=== PATIENT | female | born 1945 | race Caucasian/White ===

== ENCOUNTER 2018-01-18 11:37 | Outpatient (CLI) | payer MEDICARE ==
[~2018-01-18 11:37] MED LIST: Lidocaine 2% Jelly 30 GM TUBE ONE; Sodium Chloride 0.9% 15 ML NEB ONE
--- NOTE | 2018-01-18 23:13 | HP ---
DATE OF SERVICE: 01/18/2018 HISTORY OF PRESENT ILLNESS: Ms. Pratima Casey is a very pleasant 69-year-old who presents to the [facility] for evaluation of an ulceration of the right medial lower leg. The patient states that the u lceration has been debrided by Dr. Marko Banda previously. She states that when debridement failed to result in healing of the ulceration, she was referred to the Wound Center for further evaluation and treatment. The patient also reports drainage associated with the ulceration. The patient has no other complaints today. She denies any fever or chills. The patient was previously seen in the [facility] for a left anterior lower leg wound resulting from a fall against a statue at [facility] while trying to get a picture. Ms. Casey has no other complaints today. She denies any fever or chills. PAST MEDICAL HISTORY: 1. Chronic reflux esophagitis. 2. Irritable bowel syndrome. 3. Osteoarthritis. 4. Hypertension. 5. Rheumatoid arthritis. 6. Gastroesophageal reflux disease. 7. CVA with right hemiparesis. 8. History of rhabdomyolysis. PAST SURGICAL HISTORY: 1. Hysterectomy. 2. Cholecystectomy. 3. Wrist surgery subsequent to trauma in the 1970s. 4. Surgery for chronic sinusitis. 5. Blepharoplasty. MEDICATIONS: 1. Potassium. 2. Lorazepam. 3. Coreg. 4. Lyrica. 5. Simvastatin. 6. Clopidogrel. 7. Vitamin D. 8. Relafen. 9. Baclofen. ALLERGIES: PENICILLIN, ZITHROMAX, LEVAQUIN, CORTISONE, AVELOX, TRAMADOL. SOCIAL HISTORY: Social history is negative for current or previous tobacco or ETOH use. FAMILY HISTORY: Noncontributory. PHYSICAL EXAMINATION: VITAL SIGNS: Temperature 98.0, pulse 55, respirations 19, blood pressure 185/79. GENERAL: A 69-year-old female sitting on table in examination room, in no acute distress. HEENT: Normocephalic, atraumatic. NECK: No nuchal rigidity. CHEST: Clear to auscultation. CARDIOVASCULAR: Regular rate and rhythm. ABDOMEN: Soft. EXTREMITIES: An ulceration of the right medial lower leg is present, which measures approximately 0. 3 x 0.6 cm. Necrotic and nonviable tissue present within the wound margins was debrided with an exci sional full-thickness debridement with the use of scissors. No purulent drainage is associated with the wound. No cellulitis of the right lower leg is appreciated. No maceration of the skin of the pe riwound is noted. A posterior tibial pulse is palpable on the right. Edema of the right foot and lo wer leg is also present on exam today. Varicosities are also present over the right lower extremity. ASSESSMENT AND PLAN: 1. Varicose veins with ulcer. Promogran, Silverlon, Webril, and the 3M Coban 2-layer compression sy stem will be applied to the ulceration today. No antibiotics will be prescribed today based upon the appearance of the wound. The patient is to return to the Wound Center in 1 week for a dressing francisco ge of Promogran, Silverlon, Webril, and the 3M Coban 2 layer compression system. I will see Ms. Casey again in two weeks. 2. Chronic reflux esophagitis. 3. Irritable bowel syndrome. 4. Osteoarthritis. 5. Hypertension. 6. Rheumatoid arthritis. 7. Gastroesophageal reflux disease. 8. Cerebrovascular accident with right hemiparesis. 9. History of rhabdomyolysis.
== END 2018-01-18 11:38 | disposition home or self-care (01) ==
LOC: WCC 11:37
PROVIDERS: ATTEND Family Medicine
DX: I83.018 Varicose veins of right lower extremity with ulcer other part of lower leg (principal); L97.919 Non-pressure chronic ulcer of unspecified part of right lower leg with unspecified severity; K21.0 Gastro-esophageal reflux disease with esophagitis; K58.9 Irritable bowel syndrome, unspecified; M19.90 Unspecified osteoarthritis, unspecified site; M06.9 Rheumatoid arthritis, unspecified; I69.351 Hemiplegia and hemiparesis following cerebral infarction affecting right dominant side
CPT/HCPCS: 11042; 97139; G0463; 99203; A4218

== ENCOUNTER 2018-01-19 09:23 | Outpatient (CLI) | payer MEDICARE ==
[2018-01-23] MEDS ORDERED: Sodium Chloride 0.9% 15 ML NEB ONE (16:48)
== END 2018-01-19 09:24 | disposition home or self-care (01) ==
LOC: WCC 09:23
PROVIDERS: ATTEND Family Medicine
DX: I83.018 Varicose veins of right lower extremity with ulcer other part of lower leg (principal); Z88.0 Allergy status to penicillin; Z88.5 Allergy status to narcotic agent; Z88.8 Allergy status to other drugs, medicaments and biological substances
CPT/HCPCS: 29581; A4218

== ENCOUNTER 2018-02-01 13:37 | Outpatient (CLI) | payer MEDICARE ==
--- NOTE | 2018-02-01 14:58 | PRG ---
DATE OF SERVICE: 02/01/2018 SUBJECTIVE: Ms. Pratima Casey is a very pleasant 72-year-old who presents to the Wound Center for evalu ation of an ulceration of the right medial lower leg. The patient stated that the ulceration has bee n debrided by Dr. Marko Banda previously. She stated that when debridement failed to result in the healing of the ulceration. She was referred to the Wound Center for further evaluation and treatmen t. The patient also reported drainage associated with the ulceration at the time of her visit on 05/2018. The patient has no complaints today. She denies any fever or chills. The patient was prev iously seen in the Wound Center for a left anterior lower leg wound resulting from a fall against a s tatue at [facility] while trying to get a picture. OBJECTIVE: VITAL SIGNS: Temperature 98.0, pulse 54, respirations 18, blood pressure 186/77. EXTREMITIES: An ulceration of the right medial lower leg is present which measures approximately 1.4 x 0.9 cm. The dimensions of the wound at the time of the patient's visit on 01/18/2018, were approx imately 0.3 x 0.6 cm. The wound is granulating. Necrotic and nonviable tissue present within the wo und margins was debrided with an excisional full-thickness debridement with the use of scissors. No purulent drainage is associated with the granulating wound. No cellulitis of the right lower leg is appreciated. No maceration of the skin of the periwound is noted. A dorsalis pedis pulse is palpabl e on the right. Edema of the right foot and lower leg is again present on exam today. Varicosities are also present over the right lower extremity. ASSESSMENT AND PLAN: 1. Varicose veins with ulcer. Promogran, Silvercel, Kerlix, and an Earl bandage will be applied to t he ulceration today. The preceding dressing changes are to be performed on a daily basis after clean sing and irrigation with the assistance of the patient's . I will see Ms. Casey again in [place]. Arrangements will also be made for the home delivery of dressing supplies. 2. Chronic reflux esophagitis. 3. Irritable bowel syndrome. 4. Osteoarthritis. 5. Hypertension. 6. Rheumatoid arthritis. 7. Gastroesophageal reflux disease. 8. Cerebrovascular accident with right hemiparesis. 9. History of rhabdomyolysis.
[2018-02-03] MEDS ORDERED: Lidocaine 2% Jelly 5 ML TUBE ONE (12:27)
[2018-02-03] MEDS ORDERED: Sodium Chloride 0.9% 15 ML NEB ONE (12:27)
== END 2018-02-01 13:38 | disposition home or self-care (01) ==
LOC: WCC 13:37
PROVIDERS: ATTEND Family Medicine
DX: I83.018 Varicose veins of right lower extremity with ulcer other part of lower leg (principal); K21.0 Gastro-esophageal reflux disease with esophagitis; M19.90 Unspecified osteoarthritis, unspecified site; I10 Essential (primary) hypertension; K58.9 Irritable bowel syndrome, unspecified; M06.9 Rheumatoid arthritis, unspecified; I69.959 Hemiplegia and hemiparesis following unspecified cerebrovascular disease affecting unspecified side; Z87.39 Personal history of other diseases of the musculoskeletal system and connective tissue
CPT/HCPCS: 11042

== ENCOUNTER 2018-02-09 09:38 | Outpatient (CLI) | payer MEDICARE ==
--- NOTE | 2018-02-09 11:59 | PRG ---
DATE OF SERVICE: 02/09/2018 HISTORY: Ms. Pratima Casey is a very pleasant 72-year-old who presents to the Wound Center for evaluation of an ulceration of the right medial lower leg. The patient stated that the ulceration had been debrided by Dr. Marko Banda previously. She stated that when debridement failed to result in the healing of the ulceration she was referred to the Wound Center for further evaluation and treatment. The patient also reported drainage associated with the ulceration at the time of her visit on 01/18/2018. The patient has no complaints today. She denies any fever or chills. The patient was previously seen in the Wound Center for a left anterior lower leg wound resulting from a fall against a statue at [facility] while trying to get a picture. PHYSICAL EXAMINATION: VITAL SIGNS: Temperature 97.6, pulse 56, respirations 18, blood pressure 144/ 64. EXTREMITIES: An ulceration of the right medial lower leg is present which measures approximately 1.4 x 0.7 cm. The dimensions of the wound at the time of the patient's visit on 02/01/2018 were approximately 1.4 x 0.9 cm. The wound is granulating. Necrotic and nonviable tissue present within the wound margins was debrided with an excisional full-thickness debridement with the use of scissors and a curet. No purulent drainage is associated with the wound. No cellulitis of the right lower leg is appreciated. No maceration of the skin of the periwound is noted. Edema of the right foot and lower leg is again present on exam today. Varicosities are also present over the right lower extremity. ASSESSMENT AND PLAN: 1. Varicose veins with ulcer. Promogran, Silvercel, Kerlix, and an Earl bandage will be applied to the ulceration today. The preceding dressing changes are to be performed on a daily basis after cleansing and irrigation with the assistance of the patient's . Arrangements were previously made for the home delivery of dressing supplies. Ms. Casey will return to clinic if the preceding dressing changes fail to result in the healing of her ulceration. The patient has declined treatment with compression for her venous ulceration. 2. Chronic reflux esophagitis. 3. Irritable bowel syndrome. 4. Osteoarthritis. 5. Hypertension. 6. Rheumatoid arthritis. 7. Gastroesophageal reflux disease. 8. Cerebrovascular accident with right hemiparesis. 9. History of rhabdomyolysis. MTDD
[2018-02-09] MEDS ORDERED: Sodium Chloride 0.9% 15 ML NEB ONE (17:09)
[2018-02-09] MEDS ORDERED: Lidocaine 2% Jelly 5 ML TUBE ONE (17:09)
== END 2018-02-09 09:39 | disposition home or self-care (01) ==
LOC: WCC 09:38
PROVIDERS: ATTEND Family Medicine
DX: I83.018 Varicose veins of right lower extremity with ulcer other part of lower leg (principal); K58.9 Irritable bowel syndrome, unspecified; I10 Essential (primary) hypertension; M19.90 Unspecified osteoarthritis, unspecified site; M06.9 Rheumatoid arthritis, unspecified; K21.0 Gastro-esophageal reflux disease with esophagitis; I69.951 Hemiplegia and hemiparesis following unspecified cerebrovascular disease affecting right dominant side; Z87.39 Personal history of other diseases of the musculoskeletal system and connective tissue
CPT/HCPCS: 11042; A4218

== ENCOUNTER 2018-07-25 16:00 | Outpatient (CLI) | payer MEDICARE | END 2018-07-25 16:01 | disposition home or self-care (01) | LOC: RAD 16:00 → BICRAD 16:01 | PROVIDERS: ATTEND Specialist | DX: M79.642 Pain in left hand (principal); M25.532 Pain in left wrist ==

== ENCOUNTER 2018-08-22 14:32 | Outpatient (CLI) | payer MEDICARE ==
--- NOTE | 2018-08-22 17:19 | CT ---
CT OF THE LEFT HAND AND WRIST WITHOUT IV CONTRAST 08/22/18 HISTORY: Closed nondisplaced fracture mid one third of the scaphoid. COMPARISON: Prior three views of the left wrist dated 07/25/18. FINDINGS: No acute fracture or subluxation is evident involving the wrist carpus. Carpal alignment appears with in normal limits. DRUJ appears within normal limits. There is a small obliquely oriented avulsion fra cture involving the radial base of the long finger proximal phalanx. There is scattered osteoarthrosi s involving the left hand. No additional fracture is grossly evident. IMPRESSION: Obliquely oriented avulsion fracture involving the radial base of the long finger proximal phalanx. T here is scattered osteoarthrosis of the left hand. No definite scaphoid fracture is demonstrated. POS: TPC
== END 2018-08-22 14:33 | disposition home or self-care (01) ==
LOC: BICCT 14:32
PROVIDERS: ATTEND Orthopaedic Surgery Hand Surgery
DX: S62.025A Nondisplaced fracture of middle third of navicular [scaphoid] bone of left wrist, initial encounter for closed fracture (principal); M19.042 Primary osteoarthritis, left hand

== ENCOUNTER 2019-02-26 20:01 | Emergency (ER) | payer MEDICARE ==
[~2019-02-26 20:01] MED LIST changes: +ISOVUE-370 76%-LOCM 1 ML ONE; -Lidocaine 2% Jelly 30 GM TUBE ONE; -Sodium Chloride 0.9% 15 ML NEB ONE
[2019-02-26 21:33] LABS: #Eosinphils 0.2 thou/uL (0.0-0.7); #Lymphocytes 2.3 thou/uL (1.20-3.40); #Monocytes 0.6 thou/uL (0.11-0.59); #Neutrophils 3.4 thou/uL (1.40-6.50); %Basophils 0.3 % (0.0-1.0); %Eosinophils 2.4 % (0.0-10.0); %Lymphocytes 35.5 % (21.0-51.0); %Monocytes 9.8 % (0.0-10.0); %Neutrophils 52.1 % (42.0-75.0); Hemoglobin 12.7 g/dL (12.0-16.0); Mean Corpuscular HGB CONC 32.8 g/dL (32.0-36.0); Mean Corpuscular Hemoglobin 30.3 pg (27.0-31.0); Mean Corpuscular Volume 92.3 fL (78.0-98.0); Mean Platelet Volume 8.4 fL (7.4-10.4); Platelet Count 195 thou/uL (130-400); RBC Distribution Width 13.9 % (11.5-14.5); White Blood Cell (WBC) Count 6.5 thou/uL (4.8-10.8)
[2019-02-26 21:39] LABS: PTT 24.7 SEC (22.9-36.1); Prothrombin Time 12.8 SEC (12.0-14.7)
[2019-02-26 21:54] LABS: ALT (SGPT) 11 U/L (8-55); AST (SGOT) 12 U/L (5-34); Albumin 3.9 g/dL (3.4-4.8); Alkaline Phosphatase 42 U/L (40-150); Anion Gap 13 mmol/L (10-20); BUN (Urea Nitrogen) 23 mg/dL (9.8-20.1); Bilirubin, Total 0.2 mg/dL (0.2-1.2); Calc. Creatinine Clearance 0 mL/min (70-130); Calcium 9.4 mg/dL (7.8-10.44); Carbon Dioxide 26 mmol/L (23-31); Chloride 109 mmol/L (98-107); Estimated GFR-MDRD 35; Globulin 2.4 g/dL (2.4-3.5); Glucose 94 mg/dL (83-110); Potassium 4.6 mmol/L (3.5-5.1); Protein, Total 6.3 g/dL (6.0-8.3); Sodium 143 mmol/L (136-145)
--- NOTE | 2019-02-26 22:36 | CT ---
Exam: Brain CT without IV contrast: HISTORY: Unable to move hand, hand cramping headache left eye pain COMPARISON: 09/07/2016 FINDINGS: Again noted is a very large area of encephalomalacia with associated brain volume loss involving the left temporal and parietal and occipital lobes. No focal mass or midline shift. No intra or extra-axial hemorrhage. IMPRESSION: Large stable area of encephalomalacia on the left side with associated brain volume loss. No mass or hemorrhage or other acute process.
--- NOTE | 2019-02-26 22:55 | CT ---
EXAM: CT angiogram of the head including 3-D rendering: HISTORY: Left hand cramping, old left-sided stroke/encephalomalacia COMPARISON: None FINDINGS: Opacification of the intracranial arteries is borderline. Extensive old left-sided encephalomalacia, stable. Visualized vertebral and basilar arteries: Unremarkable. Right and left intracranial internal carotid arteries: Unremarkable. Right and left Anterior and posterior cerebral arteries: Unremarkable. Right and left middle cerebral arteries: Unremarkable. No evidence for an M1 segment occlusion. No evidence for intracranial aneurysm. IMPRESSION: Large area encephalomalacia in the left temporal, parietal, and occipital region. No evidence for sig nificant major branch occlusion. EXAM: CT angiogram of the neck including 3-D rendering: HISTORY: Can't use hand, hand cramping COMPARISON: None FINDINGS: There is adequate opacification of the extracranial arterial tree. The origins of the right and left carotid and vertebral arteries demonstrate no significant stenosis. Right common, internal, and external carotid arteries:No evidence for significant stenosis or occlusi ve disease. Left common, internal, and external carotid arteries:No significant stenosis or occlusive disease. Right and left vertebral arteries and basilar artery:No significant stenosis or occlusion. Soft tissue neck demonstrates no evidence for significant adenopathy, mass, or abnormal fluid collect ion. IMPRESSION: No significant carotid, vertebral, or basilar artery stenosis or occlusive disease or other significa nt acute process.
== END 2019-02-26 23:43 | disposition home or self-care (01) ==
LOC: ERS 20:01
DX: M62.838 Other muscle spasm (principal); M19.90 Unspecified osteoarthritis, unspecified site; I10 Essential (primary) hypertension; Z86.73 Personal history of transient ischemic attack (TIA), and cerebral infarction without residual deficits; Z79.899 Other long term (current) drug therapy
CPT/HCPCS: 36415; 70450; 70496; 70498; 80053; 84484; 85025; 85610; 85730; 93005; Q9966

== ENCOUNTER 2019-03-30 18:42 | Inpatient (IN) | payer MEDICARE ==
[2019-03-30] MEDS ORDERED: Ondansetron PF 4 MG/2 ML Vial ONE (19:06)
[2019-03-30 19:27] LABS: Hemoglobin 12.3 g/dL (12.0-16.0); Mean Corpuscular HGB CONC 33.4 g/dL (32.0-36.0); Mean Corpuscular Hemoglobin 30.3 pg (27.0-31.0); Mean Corpuscular Volume 90.8 fL (78.0-98.0); Mean Platelet Volume 8.2 fL (7.4-10.4); Platelet Count 179 thou/uL (130-400); RBC Distribution Width 13.1 % (11.5-14.5); Red Blood Cell (RBC) Count 4.05 mill/uL (4.20-5.40); White Blood Cell (WBC) Count 16.6 thou/uL (4.8-10.8)
--- NOTE | 2019-03-30 19:37 | CT ---
CT HEAD WITHOUT IV CONTRAST COMPARISON: 02/26/2019 HISTORY: Nausea and vomiting with spasms in right leg. Change in speech. TECHNIQUE: Axial CT imaging at 5 mm intervals from vertex through skull base without contrast FINDINGS: There is a large stable area of encephalomalacia involving the left temporal and occipital lobes with associated ex vacuo dilatation of the temporal and occipital horns as well as a portion of the body of the left lateral ventricle. Curvilinear low density area is seen in the left basal ganglia st able from prior study reflective of remote lacunar infarction. Again noted is evidence of mild chronic small vessel ischemic changes. There is no evidence of an acute infarction, hemorrhage, mass effect, or midline shift. Mild cerebral volume loss is present. Visualized paranasal sinuses are clear. Osseous structures appear intact. IMPRESSION: 1. No acute intracranial abnormality demonstrated. 2. Stable large area of encephalomalacia involving the left cerebral hemisphere.
[2019-03-30 19:43] LABS: ALT (SGPT) 10 U/L (8-55); AST (SGOT) 15 U/L (5-34); Albumin 3.4 g/dL (3.4-4.8); Alkaline Phosphatase 29 U/L (40-150); Anion Gap 12 mmol/L (10-20); BUN (Urea Nitrogen) 21 mg/dL (9.8-20.1); Bilirubin, Total 0.7 mg/dL (0.2-1.2); Calc. Creatinine Clearance 0 mL/min (70-130); Calcium 8.5 mg/dL (7.8-10.44); Carbon Dioxide 22 mmol/L (23-31); Chloride 99 mmol/L (98-107); Estimated GFR-MDRD 38; Globulin 2.2 g/dL (2.4-3.5); Glucose 123 mg/dL (83-110); Magnesium 1.9 mg/dL (1.6-2.6); Potassium 3.8 mmol/L (3.5-5.1); Protein, Total 5.6 g/dL (6.0-8.3); Sodium 129 mmol/L (136-145)
[2019-03-30 19:48] LABS: Band 15 % (5-11); Lymphocytes 2 % (21-51); MDiff Complete? YES; Monocytes 7 % (0-10); Neutrophil 74 % (42-75); Platelet Morphology Comment Appears Adequate; Reactive Lymphocytes 2 % (0-10)
[2019-03-30 20:04] LABS: CKMB 1.7 ng/mL (0-6.6)
[2019-03-30] MEDS ORDERED: cefTRIAXone\\ROCEPHIN 1 GM VIAL ONE (21:21)
[2019-03-30 21:22] LABS: Bilirubin Negative (Negative); Blood, Urine Negative (Negative); Clarity CLEAR (Clear); Glucose, Urine (Dipstick) Negative (Negative); Leukocyte Small (Negative); Nitrite Negative (Negative); Protein, Urine (Dipstick) Negative (Neg-Trace); Specific Gravity, Urine 1.016 (1.002-1.036); Urobilinogen 0.2 mg/dL (0.2-1.0); pH, Urine 5.5 (5.0-9.0)
[2019-03-30 21:24] LABS: Bacteria/HPF None Seen HPF (None Seen); Pathc Cast-AUWi Flag 2.31 (0-2.49)
[2019-03-30 21:37] LABS: RBC/HPF 0-3 HPF (0-3); Renal Epithelial None Seen HPF (0-3); Transitional Epithelial 0-3 HPF (0-3)
[2019-03-30 21:38] LABS: Hyaline Casts/LPF 0-3 HYALINE CAST LPF (0-3 Hyaline)
[2019-03-30] MEDS ORDERED: Sodium Chloride 0.9% 1,000 ML IV SCH (22:49)
[2019-03-30 23:10] LABS: Critical Call Chem Troponin I RESULT DECREASING; Troponin I 0.417 ng/mL (< 0.028)
[2019-03-31 01:54] LABS: Critical Call Chem Troponin I RESULT DECREASING; Troponin I 0.377 ng/mL (< 0.028)
[2019-03-31] MEDS ORDERED: Zolpidem Tartrate 5 MG TAB PO PRN (09:15)
[2019-03-31] MEDS ORDERED: Ondansetron ODT 8 MG TAB PO PRN (09:21)
[2019-03-31] MEDS: Lorazepam 0.5 MG TAB PO SCH ×2 (09:47→20:10)
[2019-03-31 10:28] LABS: Hemoglobin A1c 5.2 % (4.0-6.0)
--- NOTE | 2019-03-31 10:34 | EKG ---
Test Reason : ER INDICATION Blood Pressure : / mmHG Vent. Rate : 063 BPM Atrial Rate : 063 BPM P-R Int : 152 ms QRS Dur : 086 ms QT Int : 412 ms P-R-T Axes : 032 034 037 degrees QTc Int : 421 ms Normal sinus rhythm Normal ECG Confirmed by SOPHIE JOSUE ([id number]), news assignment editor QUANG CASTILLO ([id number]) on 03/31/2019 10:34:46 AM Referred By: Confirmed By:SOPHIE JOSUE
[2019-03-31] MEDS: Sodium Chloride 0.9% 1,000 ML IV SCH ×2 (10:45→13:31)
[2019-03-31] MEDS ORDERED: Gadobenate Dimeglumine 529 MG/1 ML (20ML VIAL) ONE (11:15)
[2019-03-31] MEDS: Clopidogrel Bisulfate 75 MG TAB PO SCH (11:38)
[2019-03-31] MEDS: Pregabalin 50 MG CAP PO SCH ×2 (11:38→20:09)
[2019-03-31] MEDS: Aspirin Chewable 81 MG TAB PO SCH (11:38)
[2019-03-31] MEDS: Carvedilol 25 MG TAB PO SCH ×2 (11:38→20:09)
--- NOTE | 2019-03-31 11:39 | MRI ---
MRI OF BRAIN WITH AND WITHOUT IV CONTRAST: Multiplanar, multisequential imaging of brain obtained. Postcontrast images were obtained administer ing IV MultiHance, 7 cc. INDICATION: History of CVA. COMPARISON: Comparison is made to MRI of 10/04/2015. Correlation is made to CT of 03/30/2019. FINDINGS: Large area of encephalomalacia is seen involving the left occipital, parietal, and temporal lobes. T his is secondary to old cortical infarct. There is no restricted diffusion. There is gliosis in the anterior frontal lobe on FLAIR sequence. No evidence of mass. No evidence of hemorrhage. No abnor mal enhancement. The intracranial internal carotid arteries, proximal anterior cerebral, and middle cerebral arteries show flow voids. The basilar artery shows flow void. IMPRESSION: 1. Large area of encephalomalacia involving the left temporoparietal and occipital lobes from old co rtical infarct. There is no evidence of acute infarct. No evidence of acute process. POS: OFF
[2019-03-31] MEDS: Acetaminophen 325 MG TAB PO PRN ×2 (12:18→20:09)
[2019-03-31] MEDS: Diphenoxylate HCl/Atropine Tablet PO SCH ×2 (16:38→23:28)
[2019-03-31] MEDS: Atorvastatin Calcium 10 MG TAB PO SCH (20:09)
[2019-03-31] MEDS: cefTRIAXone\\ROCEPHIN 1 GM in Sodium Chloride 0.9% 100 ML IVPB SCH (20:10)
[2019-04-01] MEDS: Sodium Chloride 0.9% 1,000 ML IV SCH (01:30)
[2019-04-01] MEDS: Diphenoxylate HCl/Atropine Tablet PO SCH ×3 (05:22→17:23)
[2019-04-01 06:00] LABS: #Eosinphils 0.4 thou/uL (0.0-0.7); #Monocytes 0.4 thou/uL (0.11-0.59); #Neutrophils 6.8 thou/uL (1.40-6.50); %Basophils 0.2 % (0.0-1.0); %Eosinophils 4.2 % (0.0-10.0); %Lymphocytes 11.4 % (21.0-51.0); %Monocytes 5.1 % (0.0-10.0); %Neutrophils 79.1 % (42.0-75.0); Hemoglobin 10.3 g/dL (12.0-16.0); Mean Corpuscular HGB CONC 32.5 g/dL (32.0-36.0); Mean Corpuscular Hemoglobin 30.1 pg (27.0-31.0); Mean Corpuscular Volume 92.8 fL (78.0-98.0); Mean Platelet Volume 8.2 fL (7.4-10.4); Platelet Count 156 thou/uL (130-400); RBC Distribution Width 13.2 % (11.5-14.5); Red Blood Cell (RBC) Count 3.41 mill/uL (4.20-5.40); White Blood Cell (WBC) Count 8.6 thou/uL (4.8-10.8)
[2019-04-01 06:19] LABS: Anion Gap 8 mmol/L (10-20); BUN (Urea Nitrogen) 13 mg/dL (9.8-20.1); Calc. Creatinine Clearance 68 mL/min (70-130); Calcium 7.9 mg/dL (7.8-10.44); Carbon Dioxide 19 mmol/L (23-31); Cardiac Risk 2.6 (Less than 4.5); Chloride 115 mmol/L (98-107); Cholesterol 126 mg/dl (< 200 Desired); Estimated GFR-MDRD 60; Glucose 92 mg/dL (83-110); HDL Cholesterol 48 mg/dL (>60 Neg Risk); LDL Cholesterol, Calculated 66 mg/dL; Potassium 3.4 mmol/L (3.5-5.1); Sodium 139 mmol/L (136-145); Triglycerides 60 mg/dL (Less than 150)
[2019-04-01] MEDS: Pregabalin 50 MG CAP PO SCH ×2 (09:08→20:40)
[2019-04-01] MEDS: Aspirin Chewable 81 MG TAB PO SCH (09:08)
[2019-04-01] MEDS: Lorazepam 0.5 MG TAB PO SCH ×2 (09:09→20:39)
[2019-04-01] MEDS: Clopidogrel Bisulfate 75 MG TAB PO SCH (09:09)
[2019-04-01] MEDS: Carvedilol 25 MG TAB PO SCH ×2 (09:09→20:40)
[2019-04-01] MEDS: tiZANidine HCl 4 MG TAB PO SCH ×2 (12:12→17:23)
[2019-04-01] MEDS: cloNIDine 0.1 MG TAB PO PRN (12:30)
[2019-04-01] MEDS: cefTRIAXone\\ROCEPHIN 1 GM in Sodium Chloride 0.9% 100 ML IVPB SCH (20:33)
[2019-04-01] MEDS: Atorvastatin Calcium 10 MG TAB PO SCH (20:37)
[2019-04-02] MEDS: Diphenoxylate HCl/Atropine Tablet PO SCH ×5 (00:45→23:34)
[2019-04-02] MEDS: tiZANidine HCl 4 MG TAB PO SCH ×5 (00:45→23:34)
[2019-04-02] MEDS: cloNIDine 0.1 MG TAB PO PRN ×2 (05:07→17:07)
[2019-04-02 06:03] VITALS: BMI 32.3
--- NOTE | 2019-04-02 07:33 | HP ---
CHIEF COMPLAINT: Nausea, vomiting, diarrhea. HISTORY OF PRESENT ILLNESS: The patient is a 73-year-old female who the night and day prior to admission had multiple bouts of nausea, vomiting, and diarrhea. She was brought to the emergency room for increasing weakness and further evaluation. The had noticed that she was dragging her right foot and had slurred speech, which is much weaker than usual. She has had a history of a CVA, but her symptoms were much worse than usual. She had taken a Phenergan earlier that morning, but these symptoms have persisted since the Phenergan has worn off. She has been currently under treatment for UTI, but has had only one dose of Macrobid and has never responded to that with nausea and vomiting before. She has had persistent right leg pain worsening over several weeks, but it is particularly more heavy at the time of arrival in the ER. She feels like she has probably had some fever and chills and has felt hot. PAST MEDICAL HISTORY: As previously noted, CVA 3 years ago with right hemiparesis. She has chronic reflux esophagitis, irritable bowel syndrome, osteoarthritis, hypertension, severe anxiety disorder, rheumatoid arthritis, gastroesophageal reflux disease, and history of rhabdomyolysis. She also has a history of hypertension and polymyalgia. PAST SURGICAL HISTORY: Includes hysterectomy, cholecystectomy, wrist surgery subsequent to trauma in the 1970s, surgery for chronic sinusitis, and blepharoplasty. Her most recent surgery was on her left wrist. PSYCHIATRIC HISTORY: Significant for anxiety and depression. SOCIAL HISTORY: She is . 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 Never smoked or drank. Lives at home with her . Never used illicit drugs. KNOWN ALLERGIES: Codeine sulfate, cortisone, lactulose, Levaquin, penicillins, tramadol, Zithromax. OUTPATIENT MEDICATIONS: 1. Lorazepam 0.5 mg b.i.d. 2. Plavix 75 mg daily. 3. Simvastatin 20 mg at bedtime. 4. Lyrica 75 mg b.i.d. 5. Carvedilol 25 mg b.i.d. 6. Potassium 20 mEq b.i.d. 7. Relafen 500 mg b.i.d. REVIEW OF SYSTEMS: At the time of admission includes, GENERAL: Reports of fever and chills and general malaise. HEENT: Denies drainage from ears, nose, throat, or sores. CHEST: Denies shortness of breath or cough. CARDIOVASCULAR: Denies chest pain or palpitations. GI: Has problems with nausea, vomiting, and diarrhea. : Recent history of UTI, but denies dysuria currently or blood in urine or stool. MUSCULOSKELETAL: Has had right hemiparesis for 3 years and CVA and has general muscle pain and muscle spasms. SKIN: No acute rashes or lesions. NEUROLOGIC: She has had change in gait with weakness and dragging of her right foot, also slurred speech. ENDOCRINE: No new swelling or edema. Her lower extremities have remained swollen since being on Lyrica. PHYSICAL EXAMINATION: VITAL SIGNS: Blood pressure is 156/65, pulse 65, respirations 16, temperature 98.5, pain 6/10, and O2 saturation 96% on room air. GENERAL: This is a well-developed, well-nourished, elderly female, who is alert and cooperative, in no acute distress. HEENT: Pupils are equal, round, and reactive to light. Extraocular muscles intact. Arcus senilis bilaterally. Normocephalic and atraumatic cranially. TMs, nares, and pharynx are clear. NECK: Supple. Trachea midline. No mass. No bruits. CHEST: Clear to auscultation. BREASTS: Deferred. HEART: Regular rate and rhythm without murmur. ABDOMEN: Soft and nontender without organomegaly. : Deferred. EXTREMITIES: Without clubbing or cyanosis. There is 2+ bilateral lower extremity edema. There is mild muscular atrophy of the right upper and lower extremities. There is significantly diminished range of motion of right upper and right lower extremity. SKIN: No acute rashes or lesions. NEUROLOGIC: Cranial nerves are intact. Speech is clear at this time. Unable to test gait and cerebellar function. Generally, there is significant weakness in right upper and right lower extremity which is old. MENTAL STATUS: Significant for anxiety - baseline. LABORATORY DATA: Lab work from admission showed sodium 129, potassium 3.8, chloride 99, CO2 of 22, BUN 21, creatinine 1.37, glucose 123, calcium 8.5, magnesium 1.9, total bilirubin 0.7, AST 15, ALT 10, alkaline phos 29. Cardiac enzymes elevated at 0.6, 0.4, and 0.37. BNP elevated at 476. WBCs 16.6, hemoglobin 12.3, hematocrit 36.8 with platelets at 179. Urinalysis shows small leukocyte esterase with 4 to 6 wbc's. ASSESSMENT: 1. Nausea, vomiting, and diarrhea with mild dehydration. 2. Probable extension of left hemispheric cerebrovascular accident. 3. Elevated troponins, rule out coronary artery disease. 4. Urinary tract infection. 5. Sequelae of left cerebrovascular accident. PLAN: Plan will be IV fluids, IV antibiotics, MRI of the brain, stress test of the heart including echocardiogram. Stool evaluation to rule out C diff and serial re-evaluation. Job ID: [id number]
[2019-04-02] MEDS: Pregabalin 50 MG CAP PO SCH ×2 (08:16→20:16)
[2019-04-02] MEDS: Clopidogrel Bisulfate 75 MG TAB PO SCH (08:16)
[2019-04-02] MEDS: Aspirin Chewable 81 MG TAB PO SCH (08:18)
[2019-04-02] MEDS: Lorazepam 0.5 MG TAB PO SCH ×2 (08:26→20:16)
[2019-04-02] MEDS: Carvedilol 25 MG TAB PO SCH ×2 (10:33→20:17)
[2019-04-02] MEDS: Ramipril 5 MG CAP PO SCH (10:33)
[2019-04-02] MEDS ORDERED: ADENOSINE 60 MG/20 ML VIAL ONE (11:03)
--- NOTE | 2019-04-02 11:36 | NM ---
CARDIAC SPECT: CLINICAL HISTORY: Elevated troponin, hypertension. CVA. TECHNIQUE: A myocardial perfusion scan was performed using the single isotope two day protocol with 33 mCi techn etium-99m sestamibi injected intravenously for both stress and rest images. Pharmacologic stress with Adenosine was monitored and interpreted by Dr. Garcia. FINDINGS: Homogeneous tracer distribution is seen in the myocardial segments on stress and rest images without fixed or reversible defects. GATED SPECT LVEF: 83%. WALL MOTION EXAM: Normal. IMPRESSION: Normal myocardial perfusion scan. POS: TPC
[2019-04-02] MEDS: Atorvastatin Calcium 10 MG TAB PO SCH (20:17)
[2019-04-02] MEDS: cefTRIAXone\\ROCEPHIN 1 GM in Sodium Chloride 0.9% 100 ML IVPB SCH (20:18)
[2019-04-02] MEDS ORDERED: cefTRIAXone\\ROCEPHIN 1 GM VIAL IM SCH (21:30)
[2019-04-02] MEDS ORDERED: Lidocaine 1% PF 10 ML AMP FS SCH (21:45)
[2019-04-03] MEDS: cloNIDine 0.1 MG TAB PO PRN ×2 (00:15→04:32)
[2019-04-03] MEDS: Diphenoxylate HCl/Atropine Tablet PO SCH ×3 (04:37→17:44)
[2019-04-03] MEDS: tiZANidine HCl 4 MG TAB PO SCH ×3 (04:38→17:44)
[2019-04-03] MEDS: Ramipril 5 MG CAP PO SCH (06:36)
[2019-04-03] MEDS: Pregabalin 50 MG CAP PO SCH ×2 (08:53→20:55)
[2019-04-03] MEDS: Clopidogrel Bisulfate 75 MG TAB PO SCH (08:53)
[2019-04-03] MEDS: Aspirin Chewable 81 MG TAB PO SCH (08:54)
[2019-04-03] MEDS: Lorazepam 0.5 MG TAB PO SCH ×2 (08:54→20:56)
[2019-04-03] MEDS: hydrALAZINE 25 MG TAB PO SCH ×3 (08:58→20:54)
[2019-04-03] MEDS ORDERED: Carvedilol 6.25 MG TAB PO SCH (11:30)
[2019-04-03] MEDS: Carvedilol 25 MG TAB PO SCH (13:19)
--- NOTE | 2019-04-03 13:40 | PQF ---
CLINICAL DOCUMENTATION IMPROVEMENT CLARIFICATION FORM: ICD-10 Updated PLEASE DO AN ADDENDUM TO THE PROGRESS NOTE WITH ANY DOCUMENTATION UPDATES OR ADDITIONS AND CARRY THROUGH TO DC SUMMARY. THANK YOU. DATE: 04/03/2019 ATTN: Dr. Banda Please exercise your independent, professional judgment in responding to the clarification form. Clinical indicators are provided on the bottom of this form for your review Please check appropriate box(s): [ ] AMI Type II due to Demand Ischemia from CVA with spasticity. [ x ] AMI Type II due to Demand Ischemia from Hypertension. [ ] Demand Ischemia without OH [ ] Other diagnosis [ ] Unable to determine In addition, please specify: Present on Admission (POA): [ x ] Yes [ ] No [ ] Unable to determine For continuity of documentation, please document condition throughout progress notes and discharge summary. Thank You. CLINICAL INDICATORS - SIGNS / SYMPTOMS/ LABS are present in the medical record: H&P 03/31: ROS: Neurologic: She has had change in gait with weakness and dragging of her r foot, also slurred speech. LAB: Cardiac enzymes elevated at 0.6, 0.4 and 0.37 Elevated troponins, rule out coronary artery disease. 04/01: Increased Troponin w/ L arm pain Dx: CVA w/ Spasticity VS: 04/03 @ 0258 BP 211/76 Pulse 55 @ 0636 BP 192/68 Pulse 47 PN 04/03: ST (-) ischemia HTN w/ increased troponin RISKS: H&P: CVA 3 yrs ago with r hemiparesis. HTN. Rheumatoid arthritis. Hx of hypertension and polymyalgia. Probable extension of left hemispheric cerebrovascular accident. TREATMENT: PN 04/01: Trial of Tizanidine. Increase Lyrica 100mg BID PN 04/02: start ramipril 10 mg PN 04/03: Sono Renal Artery Hydralazine 25 mg TID Thank you, Glenys (This form is maintained as a part of the permanent medical record) 2014 [employer]. All Rights Reserved Glenys Umana RN, BSN [email or web address] Office: [phone] [facility]
--- NOTE | 2019-04-03 15:12 | ULT ---
ULTRASOUND RENAL DOPPLER DUPLEX: DATE: 04/03/2019 HISTORY: 73-year-old female with hypertension. Rule out renal artery stenosis. TECHNIQUE: Grayscale images of bilateral kidneys. Urinary bladder was not imaged. Color flow and spectral analysis of portions of bilateral renal arteries and branches, and adjacent p ortion of abdominal aorta. FINDINGS: Right kidney: 10.5 x 4.5 x 5 cm Left kidney: 11 x 4.5 x 6 cm. No hydronephrosis bilaterally. Renal parenchymal thickness is diffusely thinned, typical for age. Echogenicity within normal limits. No moderate sized or large cystic or solid renal lesion identified. Highest peak systolic velocities: Right renal artery: 41 cm/s Left renal artery: 135 cm/s Aorta: 83 cm/s Renal artery/aorta ratio: Right: 0.5 Left: 1.7 Resistive index: Right arcuate: 0.68 Left arcuate: 0.76 IMPRESSION: 1) no convincing evidence of high-grade renal artery stenosis.. 2) no hydronephrosis
--- NOTE | 2019-04-03 18:17 | ULT ---
Please see accompanying renal ultrasound dictation.
--- NOTE | 2019-04-03 19:19 | CON ---
DATE OF CONSULTATION: HISTORY OF PRESENT ILLNESS: The patient is 73-year-old woman, who presented with nausea, vomiting, and was noted to have an elevated troponin level. The patient has a previous history of cerebrovascular accident, this is left with right-sided weakness. The patient was admitted to the hospital with nausea and vomiting. She was noted to have an elevated troponin level. The patient reports having midsternal chest discomfort this chest comfort; however, only occurs after eating and has resumed eating. She states that it resolved with Tums. The patient denies having any chest discomfort with exertion. The patient denies having any chest pain with exertion. She denies having any PND or orthopnea. PAST MEDICAL HISTORY: 1. CVA. 2. Hypertension. 3. G reflux. 4. Polymyalgia. PAST SURGICAL HISTORY: She has had a cholecystectomy, hysterectomy, and wrist surgery. SOCIAL HISTORY: Nonsmoker. ALLERGIES: SHE IS ALLERGIC TO CODEINE, SULFA DRUGS, LEVAQUIN, PENICILLIN, AND CORTISONE. MEDICATIONS ON ADMISSION: See nursing list. REVIEW OF SYSTEMS: Ten-point system noticeable for difficulty with digesting. Otherwise unremarkable. PHYSICAL EXAMINATION: GENERAL: Elderly woman, in no acute distress. VITAL SIGNS: Blood pressure 154/68. NECK: No jugular venous distention. LUNGS: Clear to auscultation. HEART: Regular rate and rhythm. Normal S1 and S2. No murmurs. ABDOMEN: Nondistended. EXTREMITIES: Showed trace edema. NEUROLOGIC: She has right-sided weakness. VASCULAR: Radial pulses 2+. LABORATORY DATA: White blood cell count was 16.6, hemoglobin 12.3, hematocrit 36.8, and platelets 179. Sodium 139, potassium 3.4, chloride 115, bicarb 19, BUN 13, creatinine is 0.92. Troponin was 0.377. Her EKG revealed her to have normal sinus rhythm, normal ECG. Her echocardiogram revealed to have normal left ventricular ejection fraction 55% to 60% with diastolic dysfunction and a small pericardial effusion. Her nuclear stress test revealed her to have normal left ventricular ejection fraction of 83% with no evidence of ischemia. IMPRESSION: 1. Dehydration. 2. Elevated troponin level probably type 2 myocardial infarction. 3. History of cerebrovascular accident with residual right-sided weakness. 4. Hypertension. 5. Dyslipidemia. 6. Bradycardia. PLAN: This patient presents with abnormal troponin level based on her stress test showing no evidence of ischemia. She has no symptoms suggestive of angina. We would recommend the patient continue on medical therapy. The patient was noted to have significant bradycardia and her dose of Coreg has been decreased from a cardiac standpoint. She has been recently started on ramipril. I discussed the option of continue on medical therapy versus invasive evaluation the patient strongly declined. The patient declined to undergo cardiac catheterization. We will follow this patient with you through her hospitalization. Job ID: [id number]
[2019-04-03] MEDS: Atorvastatin Calcium 10 MG TAB PO SCH (20:53)
[2019-04-03] MEDS: Carvedilol 6.25 MG TAB PO SCH (20:53)
[2019-04-04] MEDS: tiZANidine HCl 4 MG TAB PO SCH ×5 (00:58→23:42)
[2019-04-04] MEDS: Diphenoxylate HCl/Atropine Tablet PO SCH ×5 (00:58→23:42)
[2019-04-04] MEDS: cloNIDine 0.1 MG TAB PO PRN ×2 (04:57→12:18)
[2019-04-04 08:26] LABS: #Eosinphils 0.4 thou/uL (0.0-0.7); #Lymphocytes 1.9 thou/uL (1.20-3.40); #Monocytes 0.4 thou/uL (0.11-0.59); #Neutrophils 2.9 thou/uL (1.40-6.50); %Basophils 0.1 % (0.0-1.0); %Eosinophils 6.4 % (0.0-10.0); %Lymphocytes 33.8 % (21.0-51.0); %Monocytes 6.7 % (0.0-10.0); %Neutrophils 52.9 % (42.0-75.0); Hemoglobin 11.1 g/dL (12.0-16.0); Mean Corpuscular HGB CONC 34.2 g/dL (32.0-36.0); Mean Corpuscular Hemoglobin 30.4 pg (27.0-31.0); Mean Corpuscular Volume 88.9 fL (78.0-98.0); Mean Platelet Volume 7.7 fL (7.4-10.4); Platelet Count 225 thou/uL (130-400); Red Blood Cell (RBC) Count 3.65 mill/uL (4.20-5.40); White Blood Cell (WBC) Count 5.6 thou/uL (4.8-10.8)
[2019-04-04] MEDS: Pregabalin 50 MG CAP PO SCH ×2 (08:43→22:00)
[2019-04-04] MEDS: Ramipril 5 MG CAP PO SCH (08:44)
[2019-04-04] MEDS: Lorazepam 0.5 MG TAB PO SCH ×2 (08:45→22:02)
[2019-04-04] MEDS: hydrALAZINE 25 MG TAB PO SCH ×3 (08:45→22:02)
[2019-04-04] MEDS: Aspirin Chewable 81 MG TAB PO SCH (08:46)
[2019-04-04] MEDS: Clopidogrel Bisulfate 75 MG TAB PO SCH (08:47)
[2019-04-04 08:48] LABS: Anion Gap 10 mmol/L (10-20); BUN (Urea Nitrogen) 12 mg/dL (9.8-20.1); Calc. Creatinine Clearance 72 mL/min (70-130); Calcium 9.1 mg/dL (7.8-10.44); Carbon Dioxide 27 mmol/L (23-31); Chloride 108 mmol/L (98-107); Estimated GFR-MDRD 68; Glucose 101 mg/dL (83-110); Potassium 3.6 mmol/L (3.5-5.1); Sodium 141 mmol/L (136-145)
[2019-04-04] MEDS: Carvedilol 6.25 MG TAB PO SCH ×2 (08:51→22:02)
[2019-04-04] MEDS ORDERED: Communication Order-Pharmacy FS SCH (09:00)
[2019-04-04] MEDS ORDERED: Nitroglycerin 2% Ointment 1 INCH/1 GM Packet ONE (09:13)
[2019-04-04] MEDS ORDERED: Nitroglycerin 2% Ointment 1 INCH/1 GM Packet TOP SCH (09:15)
[2019-04-04] MEDS ORDERED: Iopamidol 370 76% 100 ML VIAL ONE (09:54)
[2019-04-04] MEDS ORDERED: Midazolam HCl 2 mg/2 ml Vial ONE (10:24)
[2019-04-04] MEDS ORDERED: Nitroglycerin 50 MG/250 ML BOT 250 ML ONE (10:26)
[2019-04-04] MEDS ORDERED: Sodium Chloride 0.9% 200 ML IV PRN (10:51)
[2019-04-04] MEDS ORDERED: Nitroglycerin 4.9 GM Bottle ONE (10:55)
[2019-04-04] MEDS: Sodium Chloride 0.9% 1,000 ML IV SCH ×2 (11:45→22:03)
[2019-04-04] MEDS ORDERED: NIFEdipine XL 30 MG TAB PO SCH (18:00)
[2019-04-04] MEDS: Rosuvastatin 20 MG TAB PO SCH (22:00)
[2019-04-05] MEDS: Diphenoxylate HCl/Atropine Tablet PO SCH ×4 (05:46→21:37)
[2019-04-05] MEDS: tiZANidine HCl 4 MG TAB PO SCH ×4 (05:46→21:34)
[2019-04-05] MEDS: Sodium Chloride 0.9% 1,000 ML IV SCH ×3 (05:46→21:38)
[2019-04-05 06:50] LABS: Anion Gap 12 mmol/L (10-20); BUN (Urea Nitrogen) 12 mg/dL (9.8-20.1); Calc. Creatinine Clearance 72 mL/min (70-130); Calcium 8.4 mg/dL (7.8-10.44); Carbon Dioxide 22 mmol/L (23-31); Chloride 111 mmol/L (98-107); Estimated GFR-MDRD 67; Glucose 100 mg/dL (83-110); Potassium 3.5 mmol/L (3.5-5.1); Sodium 141 mmol/L (136-145)
[2019-04-05 08:17] LABS: #Eosinphils 0.4 thou/uL (0.0-0.7); #Lymphocytes 1.6 thou/uL (1.20-3.40); #Monocytes 0.5 thou/uL (0.11-0.59); #Neutrophils 3.4 thou/uL (1.40-6.50); %Basophils 0.3 % (0.0-1.0); %Eosinophils 6.1 % (0.0-10.0); %Lymphocytes 27.7 % (21.0-51.0); %Monocytes 8.7 % (0.0-10.0); %Neutrophils 57.1 % (42.0-75.0); Hemoglobin 10.8 g/dL (12.0-16.0); Mean Corpuscular HGB CONC 34.4 g/dL (32.0-36.0); Mean Corpuscular Hemoglobin 30.6 pg (27.0-31.0); Mean Platelet Volume 7.3 fL (7.4-10.4); Platelet Count 231 thou/uL (130-400); Red Blood Cell (RBC) Count 3.52 mill/uL (4.20-5.40); White Blood Cell (WBC) Count 5.9 thou/uL (4.8-10.8)
[2019-04-05] MEDS: Ramipril 5 MG CAP PO SCH (09:48)
[2019-04-05] MEDS: Pregabalin 50 MG CAP PO SCH ×2 (09:48→21:31)
[2019-04-05] MEDS: Aspirin Chewable 81 MG TAB PO SCH (09:49)
[2019-04-05] MEDS: Carvedilol 6.25 MG TAB PO SCH ×2 (09:49→21:32)
[2019-04-05] MEDS: Clopidogrel Bisulfate 75 MG TAB PO SCH (09:49)
[2019-04-05] MEDS: Lorazepam 0.5 MG TAB PO SCH ×2 (09:49→21:31)
[2019-04-05] MEDS: NIFEdipine XL 30 MG TAB PO SCH ×2 (09:58→21:33)
[2019-04-05] MEDS: Acetaminophen 325 MG TAB PO PRN (10:46)
--- NOTE | 2019-04-05 11:56 | CT ---
CTA of the abdomen with IV contrast and Three-D reformatted imaging INDICATION: Renal artery stenosis COMPARISON: Renal ultrasound with duplex evaluation dated April 03, 2019 FINDINGS: There is dense atherosclerotic, calcified plaque involving the proximal segment of the left renal art kady inducing moderate left renal artery stenosis. The remaining segments of the left renal artery are widely patent. The right renal artery is widely patent. There is a retroaortic left renal vein. The celiac, SMA and LUIS arteries are widely patent. There are moderate calcifications involving the a bdominal pelvic vasculature. There are moderate bilateral pleural effusions with bibasilar atelectasis. There is prominent calcifi ed granuloma in the lingula. There is a small pericardial effusion. There is a small cyst within the left hepatic lobe and right kidney. There are calcified granuloma wi thin the spleen. Adrenal glands and pancreas appear within normal limits. The gallbladder is surgically absent. There is scattered degenerative and osteoarthritic change. IMPRESSION: 1. Moderate narrowing involving the proximal left renal artery due to heavily calcified atherosclerot ic plaque. Right renal artery is widely patent. 2. Moderate bilateral pleural effusions with bibasilar atelectasis. Small pericardial effusion. 3. Other chronic findings as above.
[2019-04-05] MEDS: cloNIDine 0.1 MG TAB PO PRN (19:50)
[2019-04-05] MEDS: Rosuvastatin 20 MG TAB PO SCH (21:32)
--- NOTE | 2019-04-05 23:06 | CON ---
DATE OF CONSULTATION: 04/05/2019 REQUESTING PHYSICIAN: Marko Banda MD. OTHER CONSULTING PHYSICIANS: Osmin Nixon MD. REASON FOR CONSULTATION: Renal artery stenosis. CHIEF COMPLAINT: Nausea, vomiting, and diarrhea. HISTORY OF PRESENT ILLNESS: The patient is a 73-year-old woman who about 3 years ago had a left hemispheric stroke with significant residual right-sided weakness. She has severe anxiety disorder and irritable bowel syndrome and had a day or two of nausea, vomiting, and diarrhea. She was unable to keep down her medications and even after coming to the hospital, she says that it took a while before she had good enough control of her nausea that she was able to reliably do that. She did not have any particular chest discomfort, but on screening labs, she had an elevated troponin at 0.601 and a BNP of 476.4. She initially had a heart rate of 58 and a blood pressure of 165/68 in the emergency room, but over the ensuing hours she began manifesting worse hypertension. It came down overnight and on her 2nd hospital day it was under reasonable control, but on hospital day #3, it began creeping up again, Altace 10 mg a day was added to her baseline regimen of Coreg 25 mg a day. On hospital day #4, her systolic blood pressures in the 165 to 170, came down during the course of the day, although early the next morning they were backup. In response to heart rates that were falling into the low 50s and upper 40s, yesterday hospital day #6, the Coreg was cut in half to 12.5 mg b.i.d. Early that morning and for much of the day, her systolic blood pressures ran in the 190-200 range. This morning, nifedipine XL 30 mg b.i.d. was added and today her heart rates have mostly been in the 65-70 range and systolic blood pressures in the 150s. She had a blood pressure of 173/72 about 8 in the morning. Otherwise, her blood pressures are have been under much better control today. PAST MEDICAL HISTORY: Significant for hypertension, cerebral vascular disease, GE reflux, irritable bowel syndrome, rheumatoid arthritis and polymyalgia. HOME MEDICATIONS: 1. Coreg 25 mg b.i.d. 2. Simvastatin 20 mg at bedtime. 3. Plavix 75 mg daily. 4. Ativan 0.5 mg b.i.d. 5. Lyrica 75 mg b.i.d. 6. Relafen 500 mg b.i.d. 7. Potassium chloride 20 mEq b.i.d. 8. Lomotil 1 tab b.i.d. 9. Cymbalta 30 mg daily. 10. Dexlansoprazole 60 mg daily. 11. Currently, her Coreg has been cut to 12.5 mg b.i.d. 12. Altace 10 mg daily. 13. Nifedipine XL 30 mg b.i.d. had been added. 14. She has received 1 dose of 2 inch nitroglycerin paste yesterday morning and one dose of p.r.n. 15. Clonidine 0.1 mg about noon time yesterday. ALLERGIES: SHE REPORTS MULTIPLE ALLERGIES INCLUDING CODEINE, CORTISONE, LACTULOSE, LEVAQUIN, PENICILLINS, TRAMADOL, AND ZITHROMAX. SOCIAL HISTORY: She does not smoke. REVIEW OF SYSTEMS: Notable for her baseline right arm and leg weakness and left-sided low back pain. It is positive for alternating periods of constipation and diarrhea. PHYSICAL EXAMINATION: GENERAL: She is 5 foot 1, weighs 165 pounds. VITAL SIGNS: Outlined as above with her most recent heart rate this afternoon being 70 and blood pressure 153/66. She had one temperature of 100.4 the evening of the , otherwise her temperature has mostly been in the 97 to 99.5 range. She has no carotid bruits. CHEST: Clear to auscultation. She has a regular rate and rhythm. ABDOMEN: Soft and nontender. She has some tenderness just above the iliac crest towards the midline on the left side. She has no bruits audible on her back. She has palpable radial, femoral, and dorsalis pedis pulses. LABORATORY EXAM: On admission, her white count was 16.6, hemoglobin 12.3, hematocrit 36.8, platelets 179,000, a day and a half later, her hemoglobin was 10.3. This morning it was 10.8. On admission, her sodium was 139, potassium 3.8, chloride 99, CO2 22, BUN 21, creatinine 1.37. LFTs were normal. Protein was 5.6, albumin 3.4, and on the morning of the , her BUN was 13, creatinine 0.92. This morning they were 12 and 0.84 respectively. Her BNP was 476.4 on admission. Her troponin was 0.601 and it trended down to 0.377 early in the morning of the . Her CT scan and MRI of the brain showed a large area of left-sided encephalomalacia consistent with her known past stroke, but no acute abnormalities. A renal ultrasound showed a right-sided renal artery velocity of 41 cm/second, on the left 135 cm/second with renal artery to aortic ratios of 0.5 on the right and 1.7 on the left. Her CTA of the abdomen shows extensive aortic calcifications. She has a retroaortic left renal vein. There were no apparent abnormalities with the right renal artery. There is heavy plaque burden at the origin of the left renal artery extending into the proximal portion of the left renal artery with probably on the order of about 70% stenosis. Her cardiac catheterization showed some very mild disease in her circumflex leading to a tiny OM3 and a rather small terminal OM4. Otherwise normal coronaries and LVEF of 60-70 percent with an EDP of 22. At the time of catheterization yesterday morning, her LV pressure was 182/13 with an aortic pressure on pullback of 185/64. IMPRESSION AND RECOMMENDATIONS: Radiographically, she probably does have a left renal artery stenosis. It is much harder to tell, if it is contributing to her hypertension. Historically, it sounds like her blood pressure has been under reasonable control on one medication for some time. However, during this recent illness with nausea, vomiting, inability to take medication, episodes of anxiety related to proposed procedures and changes in her medications, I think that there are far too many things in flux to make much of a determination about the appropriateness of intervening her renal artery. Currently, her blood pressure is under reasonable, though suboptimal control. She tells me that Dr. Nixon has asked her to keep a detailed blood pressure log to facilitate management of her antihypertensives. I will be available, if needed. Job ID: [id number]
[2019-04-06 06:27] LABS: Anion Gap 9 mmol/L (10-20); BUN (Urea Nitrogen) 9 mg/dL (9.8-20.1); Calc. Creatinine Clearance 76 mL/min (70-130); Carbon Dioxide 21 mmol/L (23-31); Chloride 114 mmol/L (98-107); Estimated GFR-MDRD 72; Glucose 107 mg/dL (83-110); Potassium 3.4 mmol/L (3.5-5.1); Sodium 141 mmol/L (136-145)
[2019-04-06] MEDS: Diphenoxylate HCl/Atropine Tablet PO SCH ×2 (06:32→11:22)
[2019-04-06] MEDS: tiZANidine HCl 4 MG TAB PO SCH ×2 (06:32→11:22)
[2019-04-06] MEDS ORDERED: NIFEdipine XL 30 MG TAB PO SCH ×2 (09:04→09:15)
[2019-04-06] MEDS: NIFEdipine XL 30 MG TAB PO SCH (09:23)
[2019-04-06] MEDS: Sodium Chloride 0.9% 1,000 ML IV SCH (09:23)
[2019-04-06] MEDS: Acetaminophen 325 MG TAB PO PRN (09:25)
[2019-04-06] MEDS: Ramipril 5 MG CAP PO SCH (09:26)
[2019-04-06] MEDS: Aspirin Chewable 81 MG TAB PO SCH (09:29)
[2019-04-06] MEDS: Clopidogrel Bisulfate 75 MG TAB PO SCH (09:29)
[2019-04-06] MEDS: Carvedilol 6.25 MG TAB PO SCH (09:29)
[2019-04-06] MEDS: Pregabalin 50 MG CAP PO SCH (09:29)
[2019-04-06] MEDS: Lorazepam 0.5 MG TAB PO SCH (09:30)
[2019-04-06 17:17] VITALS: BP 172/74; TEMP 98.5
== END 2019-04-06 17:27 | disposition home or self-care (01) | DRG 281 ==
LOC: ERS 18:42 → INTOOBSV 22:47 → OBSVTOIN 22:47 → 2NO 22:47
PROVIDERS: ADMIT Specialist; ATTEND Specialist
PROC: 4A023N7 Measurement of Cardiac Sampling and Pressure, Left Heart, Percutaneous Approach (ICD-10-PCS; principal; 2019-03-30)
PROC: B2151ZZ Fluoroscopy of Left Heart using Low Osmolar Contrast (ICD-10-PCS; 2019-03-30)
PROC: B2111ZZ Fluoroscopy of Multiple Coronary Arteries using Low Osmolar Contrast (ICD-10-PCS; 2019-03-30)
DX: I21.A1 Myocardial infarction type 2 (principal); I69.351 Hemiplegia and hemiparesis following cerebral infarction affecting right dominant side; E86.0 Dehydration; I10 Essential (primary) hypertension; M19.90 Unspecified osteoarthritis, unspecified site; K21.0 Gastro-esophageal reflux disease with esophagitis; K58.9 Irritable bowel syndrome, unspecified; E78.5 Hyperlipidemia, unspecified; F41.9 Anxiety disorder, unspecified; M06.9 Rheumatoid arthritis, unspecified; M35.3 Polymyalgia rheumatica; I70.1 Atherosclerosis of renal artery; F32.9 Major depressive disorder, single episode, unspecified; Z90.49 Acquired absence of other specified parts of digestive tract; Z90.710 Acquired absence of both cervix and uterus; Z88.5 Allergy status to narcotic agent; Z88.8 Allergy status to other drugs, medicaments and biological substances; Z88.0 Allergy status to penicillin; Z88.6 Allergy status to analgesic agent; Z79.899 Other long term (current) drug therapy; Z88.2 Allergy status to sulfonamides; Z88.1 Allergy status to other antibiotic agents; Z79.01 Long term (current) use of anticoagulants
CPT/HCPCS: 36415; 51701; 70450; 70553; 74175; 76700; 76770; 76942; 78452; 80048; 80053; 80061; 81003; 81015; 82533; 82553; 83036; 83735; 83880; 84484; 85025; 87086; 93005; 93017; 93306; 93458; 94760; 96361; 96365; 99152; A4353; A9500; A9577; C1769; J0153; J0696; J1644; J2250; J2405; J3490; Q9967

== ENCOUNTER 2019-04-16 11:03 | Outpatient (CLI) | payer MEDICARE ==
--- NOTE | 2019-04-16 15:11 | PRG ---
DATE OF SERVICE: 04/16/2019 HISTORY: Ms. Pratima Casey is a very pleasant 73-year-old, who presents to the wound center for evaluation of an ulceration of the right medial lower leg in addition to an ulceration over the left anterior lower leg. The patient states that she was recently admitted to [facility], for possible cerebrovascular accident. The patient states that she developed significant swelling of her right and left lower extremities with the administration of IV fluids during her hospital stay. During the patient's hospital stay, she was also seen in consultation by Cardiology. The patient states she has a followup appointment with Cardiology in the near future. PHYSICAL EXAMINATION: VITAL SIGNS: Temperature 97.8, pulse 57, respirations 17, and blood pressure 132/57. EXTREMITIES: An ulceration of the right medial lower leg is present, which measures approximately 3.5 x 4.5 cm. An ulceration over the left anterior lower leg is present, which measures approximately 4.5 x 2.0 cm. No purulent drainage is associated with either wound. No erythema of the skin surrounding either wound is present. No maceration of the skin of the periwound of either wound is noted. Significant edema of the right and left lower extremities are present on exam today. ASSESSMENT AND PLAN: 1. Venous ulcerations of right and left lower legs as described above. The ulcerations will be dressed with Xeroform gauze followed by ABDs and an Earl bandage. Arrangements will be made for dressing changes three times per week after cleansing and irrigation with the assistance of home health. 2. Lymphedema tarda stage 2. Arrangements will also be made for in-home lymphedema therapy with a lymphedema pump. The patient is to return to clinic on 04/19/2019. At this time, arrangements for in-home lymphedema therapy with a pneumatic pump will continue. 3. Chronic reflux esophagitis. 4. Irritable bowel syndrome. 5. Osteoarthritis. 6. Hypertension. 7. Rheumatoid arthritis. 8. Gastroesophageal reflux disease. 9. Cerebrovascular accident with right hemiparesis. 10. History of rhabdomyolysis. Job ID: [id number]
[2019-04-16] MEDS ORDERED: Lidocaine 2% PF 100 mg/5 ml Syringe ONE (18:00)
[2019-04-16] MEDS ORDERED: Sodium Chloride 0.9% 15 ML NEB ONE (18:00)
== END 2019-04-16 11:04 | disposition home or self-care (01) ==
LOC: WCC 11:03
PROVIDERS: ATTEND Family Medicine
DX: L97.919 Non-pressure chronic ulcer of unspecified part of right lower leg with unspecified severity (principal); L97.929 Non-pressure chronic ulcer of unspecified part of left lower leg with unspecified severity; I89.0 Lymphedema, not elsewhere classified; K21.0 Gastro-esophageal reflux disease with esophagitis; K58.9 Irritable bowel syndrome, unspecified; M19.90 Unspecified osteoarthritis, unspecified site; I10 Essential (primary) hypertension; M06.9 Rheumatoid arthritis, unspecified; I63.9 Cerebral infarction, unspecified; G81.91 Hemiplegia, unspecified affecting right dominant side; Z87.39 Personal history of other diseases of the musculoskeletal system and connective tissue
CPT/HCPCS: A4218; J2001

== ENCOUNTER 2019-04-19 12:21 | Outpatient (CLI) | payer MEDICARE ==
--- NOTE | 2019-04-19 11:35 | PRG ---
DATE OF SERVICE: 04/19/2019 HISTORY: Ms. Pratima Casey is a very pleasant 73-year-old, who presents to the Wound Center for evaluation of an ulceration of the right medial lower leg in addition to an ulceration over the left anterior lower leg. The patient was recently admitted to [facility] for possible cerebrovascular accident. The patient stated that she developed significant edema of her right and left lower extremities with the administration of IV fluids during her hospital stay. During the patient's hospital stay, she was also seen in consultation by Cardiology. The patient states she is now taking diuretics as per Cardiology. PHYSICAL EXAMINATION: VITAL SIGNS: Temperature 97.6, pulse 52, and blood pressure 144/96. EXTREMITIES: An ulceration over the right medial lower leg is present, which measures approximately 3.2 x 2.5 cm. The dimensions of the wound at the time of the patient's last visit were approximately 3.5 x 4.5 cm. An ulceration over the left anterior lower leg is present, which measures approximately 3.4 x 1.7 cm. The dimensions of this wound at the time of the patient's last visit were approximately 4.5 x 2.0 cm. No purulent drainage is associated with either wound. No cellulitis of the right or left lower leg is appreciated. No maceration of the skin of the periwound of the left lower leg ulceration is present. The edema of the right and left lower extremities has decreased since the patient's last visit. ASSESSMENT AND PLAN: 1. Venous ulcerations of right and left lower legs as described above. Dressing changes of Xeroform gauze will be continued. The patient is to receive assistance with dressing changes 3 times per week after cleansing and irrigation with the assistance of Home Health. 2. Lymphedema tarda, stage II. Today, Ms. Casey declines in-home lymphedema therapy with a lymphedema pump. The patient previously received a lymphedema pump, which she apparently returned. 3. Chronic reflux esophagitis. 4. Irritable bowel syndrome. 5. Osteoarthritis. 6. Hypertension. 7. Rheumatoid arthritis. 8. Gastroesophageal reflux disease. 9. Cerebrovascular accident with right hemiparesis. 10. History of rhabdomyolysis. Job ID: [id number]
[2019-04-19] MEDS ORDERED: Sodium Chloride 0.9% 15 ML NEB ONE (15:00)
== END 2019-04-19 12:22 | disposition home or self-care (01) ==
LOC: WCC 12:21
PROVIDERS: ATTEND Family Medicine
DX: I87.2 Venous insufficiency (chronic) (peripheral) (principal); L97.929 Non-pressure chronic ulcer of unspecified part of left lower leg with unspecified severity; L97.919 Non-pressure chronic ulcer of unspecified part of right lower leg with unspecified severity; I89.0 Lymphedema, not elsewhere classified; K21.0 Gastro-esophageal reflux disease with esophagitis; M19.90 Unspecified osteoarthritis, unspecified site; K58.9 Irritable bowel syndrome, unspecified; I10 Essential (primary) hypertension; M06.9 Rheumatoid arthritis, unspecified; I69.351 Hemiplegia and hemiparesis following cerebral infarction affecting right dominant side; Z87.39 Personal history of other diseases of the musculoskeletal system and connective tissue
CPT/HCPCS: 97602; A4218

== ENCOUNTER 2019-06-01 16:07 | Observation (INO) | payer MEDICARE ==
[2019-06-01] MEDS ORDERED: Ondansetron PF 4 MG/2 ML Vial ONE ×2 (16:13→16:53)
[2019-06-01 17:03] LABS: #Basophils 0.1 thou/uL (0.0-0.2); #Eosinphils 0.1 thou/uL (0.0-0.7); #Lymphocytes 1.7 thou/uL (1.20-3.40); #Monocytes 0.6 thou/uL (0.11-0.59); #Neutrophils 3.3 thou/uL (1.40-6.50); %Basophils 0.9 % (0.0-1.0); %Eosinophils 1.3 % (0.0-10.0); %Lymphocytes 30.1 % (21.0-51.0); %Neutrophils 57.8 % (42.0-75.0); Hemoglobin 11.1 g/dL (12.0-16.0); Mean Corpuscular HGB CONC 32.5 g/dL (32.0-36.0); Mean Corpuscular Hemoglobin 29.2 pg (27.0-31.0); Mean Corpuscular Volume 89.8 fL (78.0-98.0); Mean Platelet Volume 8.9 fL (7.4-10.4); Platelet Count 179 thou/uL (130-400); RBC Distribution Width 13.3 % (11.5-14.5); Red Blood Cell (RBC) Count 3.82 mill/uL (4.20-5.40); White Blood Cell (WBC) Count 5.7 thou/uL (4.8-10.8)
[2019-06-01 17:10] LABS: INR-International Normal Ratio 1.1; Prothrombin Time 14.3 SEC (12.0-14.7)
--- NOTE | 2019-06-01 17:23 | RAD ---
FRONTAL RADIOGRAPH CHEST 06/01/19 COMPARISON: 09/24/16 HISTORY: Syncope. Nausea, vomiting. FINDINGS: Heart and mediastinal contour is stable. Atherosclerotic calcification in the aortic arch noted. Prob able granuloma again noted in left lung base. No pneumothorax, pleural fluid, focal consolidation or alveolar edema. IMPRESSION: No acute findings - stable appearance of the chest. POS: [facility]
[2019-06-01 17:34] LABS: ALT (SGPT) 10 U/L (8-55); AST (SGOT) 14 U/L (5-34); Albumin 3.8 g/dL (3.4-4.8); Alkaline Phosphatase 46 U/L (40-150); Anion Gap 11 mmol/L (10-20); BUN (Urea Nitrogen) 34 mg/dL (9.8-20.1); Bilirubin, Total 0.3 mg/dL (0.2-1.2); CK (CPK) 107 U/L (29-168); Calc. Creatinine Clearance 0 mL/min (70-130); Calcium 9.1 mg/dL (7.8-10.44); Carbon Dioxide 22 mmol/L (23-31); Chloride 100 mmol/L (98-107); Estimated GFR-MDRD 26; Globulin 2.3 g/dL (2.4-3.5); Glucose 100 mg/dL (83-110); Potassium 4.3 mmol/L (3.5-5.1); Protein, Total 6.1 g/dL (6.0-8.3); Sodium 129 mmol/L (136-145)
--- NOTE | 2019-06-01 18:24 | CT ---
Head CT without contrast 06/01/2019: COMPARISON: 03/30/2019 HISTORY: Right-sided sensory changes, syncope TECHNIQUE: Axial CT imaging at 5 mm intervals from vertex through skull base without contrast FINDINGS: Visualized paranasal sinuses and mastoid air cells are well aerated. No displaced calvarial fracture. There is extensive encephalomalacia involving the posterior left frontal lobe as well as the majority of the left temporal lobe, parietal lobe, and occipital lobe, evidence of extensive prior infarction. There is associated enlargement of the left lateral ventricle. These findings are stable. There is no intracranial hemorrhage, midline shift, or mass effect. IMPRESSION: Stable head CT as detailed above.
[2019-06-01 20:43] LABS: Troponin I Less than 0.010 ng/mL (< 0.028)
[2019-06-01] MEDS ORDERED: Acetaminophen 325 MG TAB PO PRN (22:07)
[2019-06-01] MEDS ORDERED: Acetaminophen 650 MG Suppository PR PRN (22:07)
[2019-06-01] MEDS ORDERED: Ondansetron ODT 4 MG TAB PO PRN (22:07)
[2019-06-01] MEDS ORDERED: Ondansetron PF 4 MG/2 ML Vial IVP PRN (22:07)
[2019-06-01 22:19] VITALS: BMI 29.4
[2019-06-01] MEDS ORDERED: cloNIDine 0.1 MG TAB PO PRN (22:48)
[2019-06-01] MEDS ORDERED: Pregabalin 50 MG CAP PO SCH (23:00)
[2019-06-01] MEDS ORDERED: Lorazepam 0.5 MG TAB PO SCH ×2 (23:00)
[2019-06-01] MEDS ORDERED: Carvedilol 25 MG TAB PO SCH (23:00)
[2019-06-01] MEDS ORDERED: Simvastatin 20 MG TAB PO SCH (23:00)
[2019-06-01] MEDS ORDERED: Pregabalin 75 MG CAP PO SCH (23:00)
[2019-06-01 23:47] LABS: Troponin I Less than 0.010 ng/mL (< 0.028)
[2019-06-02 04:50] LABS: #Eosinphils 0.1 thou/uL (0.0-0.7); #Monocytes 0.7 thou/uL (0.11-0.59); #Neutrophils 3.3 thou/uL (1.40-6.50); %Eosinophils 2.2 % (0.0-10.0); %Lymphocytes 33.1 % (21.0-51.0); %Neutrophils 53.7 % (42.0-75.0); Hemoglobin 10.9 g/dL (12.0-16.0); Mean Corpuscular HGB CONC 33.3 g/dL (32.0-36.0); Mean Corpuscular Hemoglobin 30.1 pg (27.0-31.0); Mean Corpuscular Volume 90.2 fL (78.0-98.0); Mean Platelet Volume 9.1 fL (7.4-10.4); Platelet Count 157 thou/uL (130-400); Red Blood Cell (RBC) Count 3.63 mill/uL (4.20-5.40); White Blood Cell (WBC) Count 6.1 thou/uL (4.8-10.8)
[2019-06-02 04:58] LABS: Anion Gap 12 mmol/L (10-20); BUN (Urea Nitrogen) 32 mg/dL (9.8-20.1); Calc. Creatinine Clearance 33 mL/min (70-130); Calcium 8.7 mg/dL (7.8-10.44); Carbon Dioxide 21 mmol/L (23-31); Chloride 102 mmol/L (98-107); Estimated GFR-MDRD 30; Glucose 91 mg/dL (83-110); Potassium 4.4 mmol/L (3.5-5.1); Sodium 131 mmol/L (136-145)
--- NOTE | 2019-06-02 05:20 | HP ---
PRIMARY CARE DOCTOR: Marko Banda MD CODE STATUS: Full code. TIME OF EVALUATION: 8:30 p.m. CHIEF COMPLAINT: "I passed out." HISTORY OF PRESENT ILLNESS: This is a 73-year-old female patient with past medical history of hypertension, osteoarthritis, stroke on October 04. The patient came to the hospital after having an episode of syncope with no clear triggers, no alleviating factors. Symptoms were sudden. The patient did report of having some tingling in the right side of the face that reminds her previous stroke that she had. The symptoms were severe, improvement in self. REVIEW OF SYSTEMS: CONSTITUTIONAL: No fever, chills, or generalized weakness. RESPIRATORY: No cough, sputum production, or shortness of breath. CARDIOVASCULAR: No chest pain or palpitation. GASTROINTESTINAL: No nausea. No vomiting, diarrhea, or abdominal pain. RETAIL SALES SPECIALIST: The patient has an episode of syncope with dizziness. No headache or feeling lightheaded. GENITOURINARY: No burning on urination. EXTREMITIES: No leg swelling. The patient has a left lower extremity nonhealing wound. All other systems were reviewed and negative except for the findings mentioned above. PAST MEDICAL HISTORY: Hypertension, stroke, polymyalgia. FAMILY HISTORY: Reviewed, noncontributory to current presentation PAST SURGICAL HISTORY: Eyelid surgery, cholecystectomy, hysterectomy, orthopedic surgery of the left wrist. PSYCHIATRIC HISTORY: No previous psych history. SOCIAL HISTORY: No alcohol. No drugs. No smoking history. Lives at home with family. KNOWN ALLERGIES: Codeine sulfate, lactulose, Levaquin, penicillins, tramadol, Zithromax. REPORTED MEDICATIONS: 1. Lorazepam. 2. Plavix. 3. Simvastatin. 4. Lyrica. 5. Carvedilol. 6. Potassium chloride. 7. Celebrex. PHYSICAL EXAMINATION: VITAL SIGNS: On presentation, blood pressure was 74/51, heart rate 50, respiratory rate was 16, temperature 97.9, pain was 0/10, oxygen saturation was 99% on room air. GENERAL: The patient is alert and oriented, in no acute distress. HEENT: Eyes , normal conjunctivae. Moist oral mucosa. Anicteric. No JVD. RESPIRATORY: Bilateral air entry. No rales or wheezes. Symmetric expansion. CARDIOVASCULAR: Normal rate, regular rhythm. No murmurs. No gallop. No edema. ABDOMEN: Soft. Normal bowel sounds. MUSCULOSKELETAL: Baseline range of motion and strength. SKIN: Warm and intact. No pallor. No rash. No redness. EXTREMITIES: Left lower extremity, the patient has no healing wound and has been receiving wound care as outpatient, is stage III. Capillary refill seems to be intact. NEUROLOGIC: No evidence of any new focal weakness. Cranial nerves seems to be intact. PSYCH: The patient has good mood. No anxiety. Optimal judgment. LABORATORY DATA: EKG was reviewed. The patient has marked sinus bradycardia at the rate of 47, CO 160, QRS 74, QT corrected 414. Brain CT, stable. Chest x-ray, no acute findings, stable appearance of the chest. LABORATORY DATA: Labs were reviewed. The patient has white count 5.7, hemoglobin 11.1, platelet count 279. PT 14.3, INR 1.1, PTT 26. Chemistry; sodium of 129, potassium 4.3, chloride 100, carbon dioxide 22, anion gap 11, BUN 24, creatinine 1.89, on previous admissions, the patient has creatinine 0.7. GFR 26. Lactic acid 0.8. Troponins were negative x2. ASSESSMENT AND PLAN: The patient will be placed in the hospital with the following medical problems: 1. Syncope, likely secondary to over diuresis. The patient was taking significant amount of Lasix at home and had got the fluid overload in control; however, she has reported that she might have overdone it and the patient presented with acute kidney injury and syncope episode. The patient received some hydration. Symptoms are better. We will continue to monitor and we will treat accordingly. Further treatment depending on further clinical progress. 2. Acute kidney injury. The patient has an increase of more than 0.3 mg/dL of creatinine from baseline. Last creatinine is 1.89. We will continue hydration. We will monitor creatinine. We will adjust treatment as needed. If not improving, might need Nephrology evaluation for assistance with our patient. 3. Hyponatremia, this is moderate, sodium is 129. The patient has received some hydration with NS. We will monitor. We will treat accordingly. 4. Deep venous thrombosis prophylaxis. 5. The patient has recent stroke. The patient has reported she is still receiving PT rehab. No any other symptoms reported during my examination. 6. Uncontrolled hypertension. The patient has blood pressure of 150/46. We will reconcile home medication and adjust treatment as needed. 7. Nonhealing wound in the left lower extremity. We will consult Wound Care to continue as inpatient. She was receiving wound care as outpatient prior to coming here. 8. Dehydration, likely secondary to over-diuresis. Treatment as above. Job ID: [id number] MTDD
[2019-06-02] MEDS ORDERED: Sodium Chloride 0.9% 1,000 ML IV SCH (08:45)
[2019-06-02] MEDS: Lorazepam 0.5 MG TAB PO SCH ×2 (08:47→20:22)
[2019-06-02] MEDS: Pregabalin 50 MG CAP PO SCH ×2 (08:48→20:22)
[2019-06-02] MEDS: CeleCOXIB 100 MG CAP PO SCH (08:49)
[2019-06-02] MEDS: Ramipril 5 MG CAP PO SCH (08:49)
[2019-06-02] MEDS: Carvedilol 25 MG TAB PO SCH ×2 (08:50→20:24)
[2019-06-02] MEDS: Enoxaparin Sodium 40 MG/0.4 ML SYRINGE SC SCH (08:51)
[2019-06-02] MEDS ORDERED: Non-Formulary Item 1 EACH (Celecoxib [Celecoxib] 200 MG) PO SCH (09:00)
[2019-06-02] MEDS ORDERED: Carvedilol 25 MG TAB PO SCH (09:00)
--- NOTE | 2019-06-02 16:54 | EKG ---
Test Reason : SYNCOPE Blood Pressure : / mmHG Vent. Rate : 047 BPM Atrial Rate : 047 BPM P-R Int : 160 ms QRS Dur : 074 ms QT Int : 468 ms P-R-T Axes : 056 025 050 degrees QTc Int : 414 ms Marked sinus bradycardia Cannot rule out Anterior infarct , age undetermined Abnormal ECG Confirmed by NIKHIL DOUGHERTY D.O. ([id number]), story editor QUANG CASTILLO ([id number]) on 06/02/2019 4:53:35 PM Referred By: Confirmed By:NIHKIL DOUGHERTY D.O.
--- NOTE | 2019-06-02 17:05 | PDOC.PN ---
- Subjective Encounter Start Date: 06/02/19 Encounter Start Time: 14:00 Subjective: Patient examined, denies new c/o. -: Reports she feels better. Reports she has been doubling up on her -: lasix and fainted yesterday - Objective Resuscitation Status - Order Detail: 06/01/19 22:07 Resuscitation Status Routine Resuscitation Status: FULL: Full Resuscitation Vital Signs & Weight: Vital Signs (12 hours) Temp Pulse Pulse Pulse Resp BP BP 06/02/19 15:34 97.9 F 53 L 16 06/02/19 11:37 98.1 F 53 L 16 06/02/19 10:15 57 L 55 L 120/46 L 06/02/19 08:49 141/60 H 06/02/19 07:57 98.0 F 57 L 16 BP BP Pulse Ox 06/02/19 15:34 131/65 98 06/02/19 11:37 122/47 L 99 06/02/19 10:15 131/69 06/02/19 08:49 06/02/19 07:57 141/60 H 97 Weight Admit Weight 70.715 kg Weight 70.715 kg I&O: 06/01/19 06/02/19 06/03/19 06:59 06:59 06:59 Intake Total 1000 Balance 1000 Result Diagrams: 06/02/19 03:59 06/02/19 03:59 Phys Exam - Physical Examination HEENT: PERRLA, moist MMs Neck: no nodes Respiratory: clear to auscultation bilateral Cardiovascular: RRR Gastrointestinal: soft, non-tender Musculoskeletal: no edema, pulses present Right sided deficits from previous stroke Deviation from normal: ulceration to left johnson, wound care has recently treated with medhoney Dx/Plan (1) LIUDMILA (acute kidney injury) Code(s): N17.9 - ACUTE KIDNEY FAILURE, UNSPECIFIED Status: Acute (2) Hyponatremia Code(s): E87.1 - HYPO-OSMOLALITY AND HYPONATREMIA Status: Acute (3) HTN (hypertension) Code(s): I10 - ESSENTIAL (PRIMARY) HYPERTENSION Status: Chronic - Plan cont current plan of care gentle hydration, will recheck NA and creatinine in AM and consult -: Dr. Esquivel if not significantly improved. Renal U/S from 04/01 - NAD * .
[2019-06-02] MEDS ORDERED: Simvastatin 20 MG TAB PO SCH (21:00)
[2019-06-03 05:57] LABS: Anion Gap 11 mmol/L (10-20); BUN (Urea Nitrogen) 20 mg/dL (9.8-20.1); Calc. Creatinine Clearance 45 mL/min (70-130); Calcium 8.8 mg/dL (7.8-10.44); Carbon Dioxide 22 mmol/L (23-31); Chloride 104 mmol/L (98-107); Estimated GFR-MDRD 42; Glucose 103 mg/dL (83-110); Potassium 4.8 mmol/L (3.5-5.1); Sodium 132 mmol/L (136-145)
[2019-06-03] MEDS: Lorazepam 0.5 MG TAB PO SCH (08:35)
[2019-06-03] MEDS: Pregabalin 50 MG CAP PO SCH (08:35)
[2019-06-03] MEDS: Carvedilol 25 MG TAB PO SCH (08:37)
[2019-06-03] MEDS: CeleCOXIB 100 MG CAP PO SCH (08:38)
[2019-06-03] MEDS: Ramipril 5 MG CAP PO SCH (08:39)
[2019-06-03] MEDS: Enoxaparin Sodium 40 MG/0.4 ML SYRINGE SC SCH (08:40)
[2019-06-03 11:48] VITALS: BP 105/56; TEMP 97.6
== END 2019-06-03 12:49 | disposition home or self-care (01) ==
LOC: ERS 16:07 → 2SE 20:24
PROVIDERS: ADMIT Internal Medicine; ATTEND Internal Medicine
DX: R55 Syncope and collapse (principal); N17.9 Acute kidney failure, unspecified; E87.1 Hypo-osmolality and hyponatremia; I10 Essential (primary) hypertension; E86.0 Dehydration; T81.89XA Other complications of procedures, not elsewhere classified, initial encounter; R00.1 Bradycardia, unspecified; M19.90 Unspecified osteoarthritis, unspecified site; M35.3 Polymyalgia rheumatica; Z86.73 Personal history of transient ischemic attack (TIA), and cerebral infarction without residual deficits; Z88.5 Allergy status to narcotic agent; Z88.1 Allergy status to other antibiotic agents; Z88.0 Allergy status to penicillin; Z88.8 Allergy status to other drugs, medicaments and biological substances; Z79.899 Other long term (current) drug therapy
CPT/HCPCS: 70450; 71045; 80048 ×2; 82550; 83605; 84484 ×2; 85025; 85610; 85730; 93005; 96361 ×2; 96372 ×2; 96374; 96376; 97116; 97139 ×3; 97530; 99285; G0378 ×4; 36415; 80053; 84443; J1650; J2405

== ENCOUNTER 2019-08-25 11:32 | Inpatient (IN) | payer MEDICARE ==
[2019-08-25 12:32] LABS: #Eosinphils 0.1 thou/uL (0.0-0.7); #Lymphocytes 1.9 thou/uL (1.20-3.40); #Monocytes 0.6 thou/uL (0.11-0.59); #Neutrophils 4.1 thou/uL (1.40-6.50); %Basophils 0.7 % (0.0-1.0); %Eosinophils 1.3 % (0.0-10.0); %Lymphocytes 28.5 % (21.0-51.0); %Monocytes 8.8 % (0.0-10.0); %Neutrophils 60.8 % (42.0-75.0); Hemoglobin 11.8 g/dL (12.0-16.0); Mean Corpuscular HGB CONC 33.9 g/dL (32.0-36.0); Mean Corpuscular Hemoglobin 30.9 pg (27.0-31.0); Mean Corpuscular Volume 91.1 fL (78.0-98.0); Mean Platelet Volume 8.5 fL (7.4-10.4); Platelet Count 190 thou/uL (130-400); RBC Distribution Width 12.3 % (11.5-14.5); Red Blood Cell (RBC) Count 3.82 mill/uL (4.20-5.40); White Blood Cell (WBC) Count 6.7 thou/uL (4.8-10.8)
--- NOTE | 2019-08-25 12:42 | RAD ---
PORTABLE CHEST ONE VIEW: 08/25/2019 11:54 a.m. HISTORY: Low blood pressure. Right-sided stroke. COMPARISON: 06/01/2019 FINDINGS: The heart size is borderline. The aorta is tortuous. The lungs are well expanded without lobar consol idation, pneumothoraces or pleural effusions. IMPRESSION: No radiographic evidence of acute cardiopulmonary process. POS: [facility]
[2019-08-25 12:55] LABS: ALT (SGPT) 7 U/L (8-55); AST (SGOT) 10 U/L (5-34); Albumin 3.9 g/dL (3.4-4.8); Alkaline Phosphatase 43 U/L (40-110); Anion Gap 9 mmol/L (10-20); BUN (Urea Nitrogen) 23 mg/dL (9.8-20.1); Bilirubin, Total 0.6 mg/dL (0.2-1.2); Calc. Creatinine Clearance 0 mL/min (70-130); Calcium 8.9 mg/dL (7.8-10.44); Carbon Dioxide 25 mmol/L (23-31); Chloride 109 mmol/L (98-107); Estimated GFR-MDRD 38; Glucose 114 mg/dL (83-110); Potassium 4.4 mmol/L (3.5-5.1); Protein, Total 5.9 g/dL (6.0-8.3); Sodium 139 mmol/L (136-145)
[2019-08-25 17:28] VITALS: BMI 29.0
[2019-08-25] MEDS ORDERED: FLU VACC TS2019-20(65YR UP)/PF 180 MCG/0.5 ML SYRINGE IM ONE (19:00)
[2019-08-25] MEDS ORDERED: Ramipril 5 MG CAP PO SCH (22:00)
[2019-08-25] MEDS ORDERED: Lorazepam 0.5 MG TAB PO SCH (22:30)
[2019-08-25] MEDS ORDERED: Acetaminophen 325 MG TAB PO PRN (22:44)
[2019-08-25] MEDS ORDERED: Senokot S 8.6-50 MG TAB PO PRN (22:44)
--- NOTE | 2019-08-26 00:15 | HP ---
PRIMARY CARE PHYSICIAN: Crow Guzman MD. CHIEF COMPLAINT: Syncope. HISTORY OF PRESENT ILLNESS: Ms. Casey is a very pleasant 74-year-old female who presented to the emergency room today via EMS for near-syncope. The patient reports she was at [facility], reports that she got lightheaded, did not feel very well, sat down, put her head down. The patient's reports that she was not acting herself, speech was not normal, but she was awake and was able to talk to him. She was just not her normal self. When EMS arrived, they report her heart rate was low when she got a 0.5 mg of atropine prior to arrival. The patient reports that lightheadedness and not feeling well lasted about 45 minutes and got better with the atropine. The patient reports 3 such episodes since March. is concerned because he is worried that she is going to have one of these episodes when he is not around. Dr. Nixon is her silver cleaner. She said she has seen him almost weekly for the last month as he is changing up her blood pressure medication and to try to find some that agree with her. She reports that lot of medications gives her a tingling sensation on her right side where she had her stroke and Dr. Nixon has been trying to work with her to find some medication that works with her blood pressure that does not make her feel worse and exacerbate the tingling that she feels sometimes in her scalp. She reports that she is also going to Dr. Nieves for this tingling that she has in her scalp and that he has been helping her alleviate it. Newest medication per the patient is isosorbide, and the patient has also been tried on the ramipril with good success. She reports that she was initially on hydralazine, but that made the tingling in her head worse so she has come off it, but despite all 3 of these on all the different medication she has been trying, the syncopal episodes continue. 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 The patient will be admitted to the observation unit for further management. REVIEW OF SYSTEMS: The patient reports near syncope. Denies chest pain. Denies shortness of breath. Denies nausea. Denies palpitations. Reports some lightheadedness. Denies passing out. Denies any loss of consciousness. All other systems are reviewed and are negative unless mentioned in the HPI. PAST MEDICAL HISTORY: As stated above, hypertension, osteoarthritis, CVA in the past, right-sided deficits, polymyalgias, syncope. PAST SURGICAL HISTORY: Cholecystectomy, hysterectomy, left wrist surgery. PSYCHIATRIC HISTORY: None. SOCIAL HISTORY: Denies any alcohol or drug use. Has no smoking history. Lives at home with her family. ALLERGIES: CODEINE, LACTULOSE, LEVAQUIN, PENICILLINS, TRAMADOL, ZITHROMAX. HOME MEDICATIONS: 1. Aspirin 81 mg p.o. daily. 2. Coreg 12.5 mg p.o. b.i.d. 3. Celexa 200 mg p.o. daily. 4. Plavix 75 mg p.o. daily. 5. Dexilant 60 mg p.o. daily. 6. Lomotil 1 tablet p.o. b.i.d. p.r.n. 7. Isosorbide 20 mg p.o. b.i.d. 8. Ativan 0.5 mg p.o. b.i.d. 9. Lyrica 100 mg p.o. b.i.d. 10. Phenergan 25 mg p.o. q.6 hours as needed. 11. Altace 10 mg p.o. b.i.d. 12. Simvastatin 20 mg 1 tablet p.o. q.p.m. PHYSICAL EXAMINATION: VITAL SIGNS: Blood pressure 180/46, pulse is 49, respiratory rate is 16, temperature is 97.6, pO2 sats are 100% on room air. CONSTITUTIONAL: The patient appears nontoxic. She is alert and oriented to person, place, and time, is in no apparent distress. HEAD: Atraumatic and normocephalic. EYES: Eyelids are normal to inspection. Pupils are equally round and reactive to light. ENT: Mouth exam is normal. Mucous membranes are moist. NECK: Normal range of motion. Trachea is midline. RESPIRATORY/CHEST: Breath sounds are clear. Chest movement is symmetrical. CARDIOVASCULAR: Regular heart rate and rhythm. Heart sounds are normal. ABDOMEN: Nontender. Bowel sounds are heard. BACK: Normal range of motion. No tenderness. EXTREMITIES: Upper extremity; normal inspection, normal range of motion, radial pulses are normal. Lower extremity; normal inspection, normal range of motion, pedal pulses are normal. There is no edema noted. NEURO: The patient is oriented to person, place, and time. Speech is normal. SKIN: Warm, dry, normal in color. PSYCH: Has a normal affect. IMAGING STUDIES: EKG in the emergency room shows sinus martin, beats per minute 54, conduction normal, ST segments are normal, T-waves are normal, axis is normal. LABORATORY DATA: White blood cell count 6.7, hemoglobin 11.8, hematocrit 34.9, platelets 190. Sodium 139, potassium 4.4, chloride 109, carbon dioxide 25, gap is 9, BUN is 23, creatinine is 1.35, estimated GFR is 38, glucose is 114, calcium 8.9. Liver enzymes are unremarkable. BNP is 67. Troponin undetectable. PLAN AND ASSESSMENT: 1. Bradycardia. We are going to hold the Coreg. Ask Cardiology to consult. Obtain orthostatic vital signs. We will check vitals in the morning. 2. History of hypertension. We will restart her Altace. 3. History of hyperlipidemia. We will restart her simvastatin. 4. History of cerebrovascular accident. We will restart her aspirin 81 mg and Plavix. 5. The patient does report a history of anxiety. We will restart her Ativan. 6. We will start her Dexilant for gastrointestinal prophylaxis. Sequential compression devices for deep venous thrombosis prevention. 7. Hospital course dependent on clinical findings. Job ID: [id number]
[2019-08-26 05:07] LABS: #Eosinphils 0.1 thou/uL (0.0-0.7); #Monocytes 0.6 thou/uL (0.11-0.59); %Basophils 0.4 % (0.0-1.0); %Eosinophils 1.3 % (0.0-10.0); %Lymphocytes 25.9 % (21.0-51.0); %Monocytes 7.9 % (0.0-10.0); %Neutrophils 64.4 % (42.0-75.0); Hemoglobin 11.6 g/dL (12.0-16.0); Mean Corpuscular HGB CONC 33.8 g/dL (32.0-36.0); Mean Corpuscular Hemoglobin 30.5 pg (27.0-31.0); Mean Corpuscular Volume 90.3 fL (78.0-98.0); Mean Platelet Volume 8.6 fL (7.4-10.4); Platelet Count 198 thou/uL (130-400); RBC Distribution Width 12.4 % (11.5-14.5); Red Blood Cell (RBC) Count 3.79 mill/uL (4.20-5.40); White Blood Cell (WBC) Count 7.8 thou/uL (4.8-10.8)
[2019-08-26 05:22] LABS: ALT (SGPT) Less than 7 U/L (8-55); AST (SGOT) 10 U/L (5-34); Albumin 3.7 g/dL (3.4-4.8); Alkaline Phosphatase 40 U/L (40-110); Anion Gap 10 mmol/L (10-20); BUN (Urea Nitrogen) 24 mg/dL (9.8-20.1); Bilirubin, Total 0.4 mg/dL (0.2-1.2); Calc. Creatinine Clearance 49 mL/min (70-130); Carbon Dioxide 22 mmol/L (23-31); Chloride 110 mmol/L (98-107); Estimated GFR-MDRD 48; Glucose 105 mg/dL (83-110); Potassium 4.3 mmol/L (3.5-5.1); Protein, Total 5.7 g/dL (6.0-8.3); Sodium 138 mmol/L (136-145)
[2019-08-26] MEDS: Isosorbide Dinitrate 20 MG TAB PO SCH ×2 (09:22→20:57)
[2019-08-26] MEDS: Aspirin Chewable 81 MG TAB PO SCH (09:22)
[2019-08-26] MEDS: Lorazepam 0.5 MG TAB PO SCH ×2 (09:22→21:16)
[2019-08-26] MEDS: Clopidogrel Bisulfate 75 MG TAB PO SCH (09:22)
[2019-08-26] MEDS: CeleCOXIB 100 MG CAP PO SCH (09:22)
[2019-08-26] MEDS: Pregabalin 50 MG CAP PO SCH ×2 (09:23→21:01)
[2019-08-26] MEDS: Ramipril 5 MG CAP PO SCH ×2 (09:24→20:57)
[2019-08-26] MEDS ORDERED: Amlodipine 5 MG TAB PO SCH (13:30)
--- NOTE | 2019-08-26 13:59 | PRG ---
DATE OF SERVICE: 08/26/2019 DISCUSSION: Ms. Casey admitted yesterday, brought in for observation due to weakness and fatigue and bradycardia. The patient has the carvedilol stopped, the heart rate is gradually coming back up. She said she does not feel well, intermittently notes that the heart rate is low, it seems to correlate with that. PAST MEDICAL HISTORY: She has a history of jdueueoxw-nv-mjehegb blood pressure. She also has history of mild nonobstructive coronary artery disease. She may have renal artery stenosis, best treated medically. MEDICINES: She does well on the Altace. She said the carvedilol does not seem to feel well. The hydralazine in the past made her not feel well at all. PHYSICAL EXAMINATION: VITAL SIGNS: Her blood pressure 180/80, pulse 50. HEENT: Sclerae nonicteric. Mouth, mucous membranes are moist. NECK: Supple. No lymphadenopathy. LUNGS: Clear. No wheezing, rales, or rhonchi. CARDIAC: Normal S1 and normal S2. She is bradycardic. ABDOMEN: Soft and nontender. LABORATORY DATA: Cardiac enzymes were negative. ASSESSMENT: 1. Hypertension, somewhat difficult to control. 2. Previous stroke. 3. Sinus bradycardia, on beta blockers. PLAN: 1. The Coreg is on hold. 2. Add amlodipine. 3. Dr. Nixon to see the patient tomorrow, probably be able to go home tomorrow, heart rate is staying 50 or slow and somewhat less. Job ID: [id number]
--- NOTE | 2019-08-26 16:46 | PDOC.HOSPP ---
- Subjective Encounter Date: 08/26/19 Encounter Time: 16:35 Subjective: f/u for labile HTN, sinus bradycardia and near-syncope. Taken off Carvedilol due to bradycardia and currently tolerating Amlodipine, Altace and Isosorbide. - Objective Vital Signs & Weight: Vital Signs (12 hours) Temp Pulse Resp BP BP BP BP 08/26/19 10:46 50 L 18 174/71 H 08/26/19 07:56 98.1 F 51 L 18 152/65 H 165/66 H 188/78 H Pulse Ox 08/26/19 10:46 96 08/26/19 07:56 96 Weight Weight 153 lb 6.4 oz I&O: 08/25/19 08/26/19 08/27/19 06:59 06:59 06:59 Intake Total 480 240 Output Total 700 Balance -220 240 Result Diagrams: 08/26/19 04:39 08/26/19 04:39 Additional Labs: Laboratory Tests 08/25/19 08/25/19 08/25/19 12:25 12:25 12:25 Hgb 11.8 L Creatinine 1.35 H Magnesium B-Natriuretic Peptide 67.0 08/25/19 23:28 Hgb Creatinine Magnesium 2.1 B-Natriuretic Peptide Radiology Reviewed by me: Yes (PCXR - neg) EKG Reviewed by me: Yes (Tele - sinus bradycardia in 50's) Hospitalist ROS - Medication Medications: Active Medications Generic Name Dose Route Start Last Admin Trade Name Freq PRN Reason Stop Dose Admin Aspirin 81 mg 08/26/19 09:00 08/26/19 09:22 Aspirin Chewable PO 81 mg DAILY PAU Administration Celecoxib 200 mg 08/26/19 09:00 08/26/19 09:22 Celebrex PO 200 mg DAILY PAU Administration Clopidogrel Bisulfate 75 mg 08/26/19 09:00 08/26/19 09:22 Plavix PO 75 mg DAILY PAU Administration Isosorbide Dinitrate 20 mg 08/26/19 09:00 08/26/19 09:22 Isordil PO 20 mg BID PAU Administration Lorazepam 0.5 mg 08/26/19 09:00 08/26/19 09:22 Ativan PO 0.5 mg BID PAU Administration Pantoprazole Sodium 40 mg 08/26/19 09:00 08/26/19 09:22 Protonix PO 40 mg DAILY PAU Administration Pregabalin 100 mg 08/26/19 09:00 08/26/19 09:23 Lyrica PO 100 mg BID PAU Administration Ramipril 10 mg 08/26/19 09:00 08/26/19 09:24 Altace PO 10 mg BID PAU Administration - Exam General Appearance: NAD, awake alert Eye: PERRL, anicteric sclera ENT: normocephalic atraumatic, no oropharyngeal lesions Neck: supple, symmetric, no JVD, no thyromegaly, no lymphadenopathy Heart: RRR, no murmur, no gallops, no rubs, normal peripheral pulses Respiratory: CTAB, no wheezes, no rales, no ronchi, normal chest expansion Gastrointestinal: soft, non-tender, non-distended, normal bowel sounds Extremities: no cyanosis, no clubbing, no edema Skin: normal turgor, no lesions Neurological: cranial nerve grossly intact, no new deficit Musculoskeletal: normal tone Psychiatric: normal affect, A&O x 3 Hosp A/P (1) Near syncope Status: Acute Plan: Likely due to bradycardia, Coreg d/c'd, Amlodipine trial (2) Sinus bradycardia Code(s): R00.1 - BRADYCARDIA, UNSPECIFIED Status: Acute Plan: See above (3) HTN (hypertension) Code(s): I10 - ESSENTIAL (PRIMARY) HYPERTENSION Status: Chronic Qualifiers: Hypertension type: essential hypertension Qualified Code(s): I10 - Essential (primary) hypertension Plan: Continue current BP regimen, serial monitoring (4) Acute kidney injury superimposed on CKD Code(s): N17.9 - ACUTE KIDNEY FAILURE, UNSPECIFIED; N18.9 - CHRONIC KIDNEY DISEASE, UNSPECIFIED Status: Acute Plan: Mild LIUDMILA, improved, avoid nephrotoxic meds and limit contrast exposure - Plan plan discussed w/ family, out of bed/ambulate, DVT proph w/SCDs Stable currently Trial Amlodipine Coreg d/c'd Continue Isosorbide OOB/ambulate AM lab: BMP Likely home in am 08/27/19
[2019-08-26] MEDS: Atorvastatin Calcium 10 MG TAB PO SCH (20:57)
[2019-08-27 04:47] LABS: Anion Gap 9 mmol/L (10-20); BUN (Urea Nitrogen) 26 mg/dL (9.8-20.1); Calc. Creatinine Clearance 42 mL/min (70-130); Calcium 8.8 mg/dL (7.8-10.44); Carbon Dioxide 25 mmol/L (23-31); Chloride 109 mmol/L (98-107); Estimated GFR-MDRD 40; Glucose 109 mg/dL (83-110); Potassium 4.6 mmol/L (3.5-5.1); Sodium 138 mmol/L (136-145)
[2019-08-27] MEDS: CeleCOXIB 100 MG CAP PO SCH (08:40)
[2019-08-27] MEDS: Amlodipine 5 MG TAB PO SCH (08:40)
[2019-08-27] MEDS: Ramipril 5 MG CAP PO SCH ×2 (08:40→20:17)
[2019-08-27] MEDS: Lorazepam 0.5 MG TAB PO SCH ×2 (08:40→20:19)
[2019-08-27] MEDS: Aspirin Chewable 81 MG TAB PO SCH (08:41)
[2019-08-27] MEDS: Isosorbide Dinitrate 20 MG TAB PO SCH ×2 (08:41→20:18)
[2019-08-27] MEDS: Clopidogrel Bisulfate 75 MG TAB PO SCH (08:41)
[2019-08-27] MEDS: Pregabalin 50 MG CAP PO SCH ×2 (09:55→20:17)
--- NOTE | 2019-08-27 15:57 | CON ---
DATE OF CONSULTATION: 08/27/2019 HISTORY OF PRESENT ILLNESS: I am seeing Ms. Casey at our [facility] as an Electrophysiology end user consultant. Her problems are; 1. Recurrent syncopal/near syncopal spells. 2. Marked bradycardia with history of beta blockers. 3. Jxknvmmyd-mq-ifufodj hypertension. 4. History of preserved LVEF, diastolic dysfunction, mild MR, mild pulmonary hypertension on echo 03/31/2019. 5. Nuclear stress test on 03/22/2019 showed normal myocardial perfusion scan. 6. History of CVA in 2015. ALLERGIES: CODEINE, AZITHROMYCIN, CORTISONE, LEVOFLOXACIN, TRAMADOL, AND PENICILLINS. MEDICATIONS: At home include; 1. Ativan. 2. Pregabalin. 3. Simvastatin. 4. Diphenoxylate. 5. Dexlansoprazole. 6. Promethazine. 7. Celecoxib. 8. Clopidogrel. 9. Isosorbide. 10. Aspirin. 11. Ramipril 10 mg twice a day. 12. Carvedilol. SUBJECTIVE: Ms. Casey is here with symptoms of near syncopal spell. She was at [employer] and become lightheaded while she was having her lunch. Speech was not normal, but she was still able to talk to her, but she was extremely slow. Atropine was required for improvement unless about 45 minutes and did get better with atropine shot stop. The patient with 3 similar episodes since March. Currently, denies dizziness or loss of consciousness. No chest pain. No fever, chills, or cough. No PND, orthopnea, or lower extremity edema. Rest of 12-point review of system otherwise unremarkable. PAST MEDICAL HISTORY: As above, hypertension, dyslipidemia, pulmonary nodules, syncope, stroke in 2015 with right upper and lower extremity paresis. She also has history of renal artery stenosis. SOCIAL HISTORY: The patient is . She is a retired title i teacher. FAMILY HISTORY: Not contributory. PAST SURGICAL HISTORY: Significant for acute cholecystectomy, hysterectomy, and left wrist surgery. OBJECTIVE DATA: VITAL SIGNS: Blood pressure is 136/58, heart rate 77, and respirations 12. Heart rate 51 this morning. The blood pressure sitting 177/77 and lying down 189/74. GENERAL: Alert and oriented woman, in no apparent distress. NECK: Supple. Jugular veins not distended. CHEST: Coarse without crackles. HEART: Sounds are regular, but bradycardic. No murmur or gallop. ABDOMEN: Benign. Bowel sounds positive. EXTREMITIES: Lower extremities without edema, clubbing, or cyanosis. SKIN: Without rash except for right lower extremity edema shows chronic venous stasis and also prior history of skin trauma and requiring grafting in the past. NEUROLOGIC: The patient with right-sided paresis, upper extremity more than lower extremity. DATABASE: EKG is reviewed reveal sinus bradycardia at 50 beats per minute. LABORATORY DATA: White cell count 7.8, hemoglobin 11.6, and platelet count is 198. Sodium 138, potassium 4.6, BUN is 26, and creatinine is 1.3. ASSESSMENT AND PLAN: 1. Ms. Casey is a pleasant 74-year-old woman with history of zcvpcryxh-sw-kzhrmvf hypertension and remote stroke, who has been tried on a variety of antihypertensive regimen, reasonably controlled now with a current angiotensin-converting enzyme inhibitor and Coreg combination. She has not been able to tolerate hydralazine and calcium channel blockers due to leg swelling. Now she presents with recurrent bradycardia and near syncopal spell. We discussed the likely contribution of bradycardia to her symptoms. She clearly is on a heart rate lowering agent, carvedilol, but that is essential to her antihypertensive regimen. We discussed pros and cons about pacemaker implant versus continuing medical observation. She prefers proceeding with a pacemaker and we discussed the procedure pros and cons, risk of infection, bleeding, tamponade, pneumothorax, device malfunctions, and recalls. She understands and willing to proceed. 2. Resume beta eliseo for hypertension control first. Job ID: [id number]
[2019-08-27] MEDS ORDERED: diphenhydrAMINE 25 MG CAP ONE (16:30)
[2019-08-27] MEDS ORDERED: diphenhydrAMINE 25 MG CAP PO PRN (16:43)
--- NOTE | 2019-08-27 19:43 | PDOC.HOSPP ---
- Subjective Encounter Date: 08/27/19 Encounter Time: 15:25 Subjective: f/u for near syncope, symptomatic bradycardia titrating BP regimen. EP evaluation recommending PM placement - Objective Vital Signs & Weight: Vital Signs (12 hours) Temp Pulse Resp BP BP BP BP 08/27/19 18:09 55 L 18 180/72 H 08/27/19 17:45 97.5 F L 77 18 139/64 08/27/19 14:43 98.2 F 08/27/19 12:00 77 136/58 L 08/27/19 08:40 51 L 134/52 L 08/27/19 08:00 97.6 F 60 16 177/77 H 153/77 H BP Pulse Ox 08/27/19 18:09 96 08/27/19 17:45 93 L 08/27/19 14:43 08/27/19 12:00 08/27/19 08:40 08/27/19 08:00 189/74 H 100 Weight Weight 153 lb 6.4 oz I&O: 08/26/19 08/27/19 08/28/19 06:59 06:59 06:59 Intake Total 480 480 Output Total 700 Balance -220 480 Result Diagrams: 08/26/19 04:39 08/27/19 04:09 Additional Labs: Laboratory Tests 08/25/19 08/25/19 08/25/19 12:25 12:25 12:25 Hgb 11.8 L Creatinine 1.35 H Magnesium B-Natriuretic Peptide 67.0 08/25/19 23:28 Hgb Creatinine Magnesium 2.1 B-Natriuretic Peptide EKG Reviewed by me: Yes (Tele - Sinus martin in 50's) Hospitalist ROS - Medication Medications: Active Medications Generic Name Dose Route Start Last Admin Trade Name Freq PRN Reason Stop Dose Admin Amlodipine Besylate 5 mg 08/27/19 09:00 08/27/19 08:40 Norvasc PO 5 mg DAILY PAU Administration Aspirin 81 mg 08/26/19 09:00 08/27/19 08:41 Aspirin Chewable PO 81 mg DAILY PAU Administration Atorvastatin Calcium 10 mg 08/26/19 21:00 08/26/19 20:57 Lipitor PO 10 mg HS PAU Administration Celecoxib 200 mg 08/26/19 09:00 08/27/19 08:40 Celebrex PO 200 mg DAILY PAU Administration Clopidogrel Bisulfate 75 mg 08/26/19 09:00 08/27/19 08:41 Plavix PO 75 mg DAILY PAU Administration Isosorbide Dinitrate 20 mg 08/26/19 09:00 08/27/19 08:41 Isordil PO 20 mg BID PAU Administration Lorazepam 0.5 mg 08/26/19 09:00 08/27/19 08:40 Ativan PO 0.5 mg BID PAU Administration Pantoprazole Sodium 40 mg 08/26/19 09:00 08/27/19 08:41 Protonix PO 40 mg DAILY PAU Administration Pregabalin 100 mg 08/26/19 09:00 08/27/19 09:55 Lyrica PO 100 mg BID PAU Administration Ramipril 10 mg 08/26/19 09:00 08/27/19 08:40 Altace PO 10 mg BID PAU Administration - Exam General Appearance: NAD, awake alert Eye: PERRL, anicteric sclera ENT: normocephalic atraumatic, no oropharyngeal lesions Neck: supple, symmetric, no JVD, no thyromegaly, no lymphadenopathy Heart: RRR, no gallops, no rubs, normal peripheral pulses Respiratory: CTAB, no wheezes, no rales, no ronchi, normal chest expansion Gastrointestinal: soft, non-tender, non-distended, normal bowel sounds Extremities: no cyanosis, no clubbing Skin: normal turgor, no lesions Neurological: cranial nerve grossly intact, no new deficit Neurological - other findings: RUE weakness, moves all extremities Musculoskeletal: normal tone, generalized weakness Psychiatric: normal affect, A&O x 3 Hosp A/P (1) Near syncope Status: Acute Plan: Likely due to #2, continue mgmt as outlined below (2) Sinus bradycardia Code(s): R00.1 - BRADYCARDIA, UNSPECIFIED Status: Acute Plan: Plan for Pacemaker placement 08/28/19 (3) HTN (hypertension) Code(s): I10 - ESSENTIAL (PRIMARY) HYPERTENSION Status: Chronic Qualifiers: Hypertension type: essential hypertension Qualified Code(s): I10 - Essential (primary) hypertension Plan: Resume home BP regimen, serial monitoring (4) Acute kidney injury superimposed on CKD Code(s): N17.9 - ACUTE KIDNEY FAILURE, UNSPECIFIED; N18.9 - CHRONIC KIDNEY DISEASE, UNSPECIFIED Status: Acute Plan: Slow improvement, avoid nephrotoxic meds and limit contrast exposure - Plan plan discussed w/ family, PT/OT, social and political studies professor, incentive spirometry, out of bed/ambulate Stable currently Trial Amlodipine Coreg d/c'd Continue Isosorbide OOB/ambulate Plan for Pacemaker placement in am AM lab: BMP
[2019-08-27] MEDS: Atorvastatin Calcium 10 MG TAB PO SCH (20:18)
[2019-08-28] MEDS ORDERED: CEFAZOLIN 2 GM in Premix Bag 1 BAG IVPB SCH (05:30)
[2019-08-28 05:35] LABS: Anion Gap 13 mmol/L (10-20); BUN (Urea Nitrogen) 26 mg/dL (9.8-20.1); Calc. Creatinine Clearance 39 mL/min (70-130); Calcium 8.9 mg/dL (7.8-10.44); Carbon Dioxide 20 mmol/L (23-31); Chloride 108 mmol/L (98-107); Estimated GFR-MDRD 36; Glucose 113 mg/dL (83-110); Potassium 4.5 mmol/L (3.5-5.1); Sodium 136 mmol/L (136-145)
[2019-08-28] MEDS ORDERED: Clindamycin/D5W 600 mg/50 ml Premix Bag ONE (07:12)
[2019-08-28] MEDS ORDERED: Midazolam HCl 2 mg/2 ml Vial ONE (08:20)
[2019-08-28] MEDS ORDERED: Fentanyl 100 MCG/2 ML VIAL ONE (08:22)
[2019-08-28] MEDS ORDERED: Lidocaine 1% (PF) 30 ML VIAL ONE (09:09)
[2019-08-28] MEDS ORDERED: Labetalol HCl 100 MG/20 ML VIAL ONE (09:28)
[2019-08-28] MEDS: Pregabalin 50 MG CAP PO SCH ×2 (10:30→20:33)
[2019-08-28] MEDS: Ramipril 5 MG CAP PO SCH ×2 (10:31→20:32)
[2019-08-28] MEDS: Lorazepam 0.5 MG TAB PO SCH ×2 (10:32→20:32)
[2019-08-28] MEDS: Aspirin Chewable 81 MG TAB PO SCH (10:32)
[2019-08-28] MEDS: CeleCOXIB 100 MG CAP PO SCH (10:32)
[2019-08-28] MEDS: Clopidogrel Bisulfate 75 MG TAB PO SCH (10:32)
[2019-08-28] MEDS: Isosorbide Dinitrate 20 MG TAB PO SCH ×2 (10:33→20:32)
[2019-08-28] MEDS: Amlodipine 5 MG TAB PO SCH (10:33)
[2019-08-28] MEDS ORDERED: Carvedilol 6.25 MG TAB PO SCH (11:15)
[2019-08-28] MEDS: Clindamycin 150 MG CAP PO SCH ×2 (16:10→20:33)
[2019-08-28] MEDS: Carvedilol 6.25 MG TAB PO SCH (16:10)
--- NOTE | 2019-08-28 16:17 | PDOC.HOSPP ---
- Subjective Encounter Date: 08/28/19 Encounter Time: 16:00 Subjective: f/u for symptomatic bradycardia s/p PM placement today. States feeling ok overall. - Objective Vital Signs & Weight: Vital Signs (12 hours) Temp Pulse Resp BP BP Pulse Ox 08/28/19 16:02 98.0 F 61 16 141/64 H 99 08/28/19 11:31 97.5 F L 61 16 116/54 L 97 08/28/19 11:28 116/54 L 08/28/19 10:33 60 177/76 H 08/28/19 10:31 177/76 H 08/28/19 10:07 98.0 F 60 16 212/86 H 98 08/28/19 10:00 98 Weight Weight 153 lb 6 oz I&O: 08/27/19 08/28/19 08/29/19 06:59 06:59 06:59 Intake Total 480 120 Balance 480 120 Result Diagrams: 08/26/19 04:39 08/28/19 04:45 Additional Labs: Laboratory Tests 08/25/19 08/25/19 08/25/19 12:25 12:25 12:25 Hgb 11.8 L BUN Creatinine 1.35 H Magnesium B-Natriuretic Peptide 67.0 08/25/19 08/27/19 23:28 04:09 Hgb BUN 26 H Creatinine 1.30 H Magnesium 2.1 B-Natriuretic Peptide EKG Reviewed by me: Yes (Tele - A-paced) Hospitalist ROS - Medication Medications: Active Medications Generic Name Dose Route Start Last Admin Trade Name Freq PRN Reason Stop Dose Admin Aspirin 81 mg 08/26/19 09:00 08/28/19 10:32 Aspirin Chewable PO 81 mg DAILY PAU Administration Atorvastatin Calcium 10 mg 08/26/19 21:00 08/27/19 20:18 Lipitor PO 10 mg HS PAU Administration Carvedilol 12.5 mg 08/28/19 17:00 08/28/19 16:10 Coreg PO 12.5 mg BID-WM PAU Administration Celecoxib 200 mg 08/26/19 09:00 08/28/19 10:32 Celebrex PO 200 mg DAILY PAU Administration Clindamycin HCl 300 mg 08/28/19 15:00 08/28/19 16:10 Cleocin PO 300 mg TID PAU Administration Clopidogrel Bisulfate 75 mg 08/26/19 09:00 08/28/19 10:32 Plavix PO 75 mg DAILY PAU Administration Isosorbide Dinitrate 20 mg 08/26/19 09:00 08/28/19 10:33 Isordil PO 20 mg BID PAU Administration Lorazepam 0.5 mg 08/26/19 09:00 08/28/19 10:32 Ativan PO 0.5 mg BID PAU Administration Pantoprazole Sodium 40 mg 08/26/19 09:00 08/28/19 10:32 Protonix PO 40 mg DAILY PAU Administration Pregabalin 100 mg 08/26/19 09:00 08/28/19 10:30 Lyrica PO 100 mg BID PAU Administration Ramipril 10 mg 08/26/19 09:00 08/28/19 10:31 Altace PO 10 mg BID PAU Administration - Exam General Appearance: NAD, awake alert Eye: PERRL, anicteric sclera ENT: normocephalic atraumatic, no oropharyngeal lesions Neck: supple, symmetric, no JVD, no thyromegaly, no lymphadenopathy Heart: RRR, no gallops, no rubs, normal peripheral pulses Respiratory: CTAB, no wheezes, no rales, no ronchi, normal chest expansion Respiratory - other findings: R upper chest wall with PM device/dressing in place Gastrointestinal: soft, non-tender, non-distended, normal bowel sounds Extremities: no cyanosis, no clubbing Skin: normal turgor Neurological: cranial nerve grossly intact, no new deficit Neurological - other findings: RUE weakness Musculoskeletal: generalized weakness Psychiatric: normal affect, A&O x 3 Hosp A/P (1) Near syncope Status: Acute Plan: s/p PM placement today, continue telemetry monitoring and likely d/c in 24h (2) Sinus bradycardia Code(s): R00.1 - BRADYCARDIA, UNSPECIFIED Status: Acute Plan: See #1 (3) HTN (hypertension) Code(s): I10 - ESSENTIAL (PRIMARY) HYPERTENSION Status: Chronic Qualifiers: Hypertension type: essential hypertension Qualified Code(s): I10 - Essential (primary) hypertension Plan: Stable, resume beta-eliseo therapy (4) Acute kidney injury superimposed on CKD Code(s): N17.9 - ACUTE KIDNEY FAILURE, UNSPECIFIED; N18.9 - CHRONIC KIDNEY DISEASE, UNSPECIFIED Status: Acute Plan: Avoid nephrotoxic meds and limit contrast exposure - Plan continue antibiotics, PT/OT, social media marketing analyst, out of bed/ambulate Stable currently D/C Amlodipine Coreg 12.5mg BID Continue Isosorbide OOB/ambulate Continue Clindamycin Likely home in am
[2019-08-28] MEDS: Atorvastatin Calcium 10 MG TAB PO SCH (20:34)
--- NOTE | 2019-08-28 23:52 | RAD ---
FRONTAL VIEW CHEST: 08/28/19 COMPARISON: 08/25/19 INDICATION: Status post pacemaker placement. FINDINGS: There is a dual lead right subclavian approach cardiac pacing device with leads overlying the right a trium and right ventricle. Stable calcific density overlies the left heart border. No significant pos tprocedure pneumothorax. Chest otherwise similar. IMPRESSION: No postprocedural pneumothorax of significance visualized status post right sided pacemaker placement . POS: C
[2019-08-29 07:36] VITALS: BP 158/65; TEMP 97.8
[2019-08-29] MEDS: Lorazepam 0.5 MG TAB PO SCH (07:40)
[2019-08-29] MEDS: Pregabalin 50 MG CAP PO SCH (07:40)
[2019-08-29] MEDS: Ramipril 5 MG CAP PO SCH (07:41)
[2019-08-29] MEDS: Clindamycin 150 MG CAP PO SCH (07:41)
[2019-08-29] MEDS: CeleCOXIB 100 MG CAP PO SCH (07:41)
[2019-08-29] MEDS: Isosorbide Dinitrate 20 MG TAB PO SCH (07:42)
[2019-08-29] MEDS: Clopidogrel Bisulfate 75 MG TAB PO SCH (07:42)
[2019-08-29] MEDS: Aspirin Chewable 81 MG TAB PO SCH (07:42)
[2019-08-29] MEDS: Carvedilol 6.25 MG TAB PO SCH (07:42)
--- NOTE | 2019-08-29 11:00 | PDOC.CPN ---
- Subjective Date: 08/29/19 Time: 10:59 Interval history: Feeling well this AM after PPM implant yesterday. Some tenderness at incision but tolerable. No dizziness, heart racing, palpitations, or chest pain. - Review of Systems Cardiovascular: denies: chest pain, palpitation, edema, paroxysmal nocturnal dyspnea, orthopnea Gastrointestinal: denies: nausea, vomiting, diarrhea, constipation, abd pain, GI bleeding Neurological: reports: numbness. denies: syncope, weakness - Objective Allergies/Adverse Reactions: Allergies Allergy/AdvReac Type Severity Reaction Status Date / Time codeine Allergy Mild Nausea Verified 08/25/19 18:01 azithromycin [From Zithromax] Allergy Verified 08/25/19 18:01 cortisone Allergy Verified 08/25/19 18:01 levofloxacin [From Levaquin] Allergy Verified 08/25/19 18:01 tramadol Allergy Hives Verified 08/25/19 18:01 Penicillins AdvReac Verified 08/25/19 18:01 Visit Medications: Current Medications Acetaminophen (Tylenol) 650 mg PO Q4H PRN PRN Reason: Headache/Fever/Mild Pain (1-3) Aspirin (Aspirin Chewable) 81 mg PO DAILY [facility] Last Admin: 08/29/19 07:42 Dose: 81 mg Atorvastatin Calcium (Lipitor) 10 mg PO HS [facility] Last Admin: 08/28/19 20:34 Dose: 10 mg Carvedilol (Coreg) 12.5 mg PO BID-WM [facility] Last Admin: 08/29/19 07:42 Dose: 12.5 mg Celecoxib (Celebrex) 200 mg PO DAILY [facility] Last Admin: 08/29/19 07:41 Dose: 200 mg Clindamycin HCl (Cleocin) 300 mg PO TID [facility] Last Admin: 08/29/19 07:41 Dose: 300 mg Clopidogrel Bisulfate (Plavix) 75 mg PO DAILY [facility] Last Admin: 08/29/19 07:42 Dose: 75 mg Diphenhydramine HCl (Benadryl) 25 mg PO Q6H PRN PRN Reason: Itching & Redness Cefazolin Sodium/Dextrose 2 gm (/ Device) 50 mls @ 100 mls/hr IVPB ONCALL-OR [facility] Isosorbide Dinitrate (Isordil) 20 mg PO BID [facility] Last Admin: 08/29/19 07:42 Dose: 20 mg Lorazepam (Ativan) 0.5 mg PO BID [facility] Last Admin: 08/29/19 07:40 Dose: 0.5 mg Pantoprazole Sodium (Protonix) 40 mg PO DAILY [facility] Last Admin: 08/29/19 07:42 Dose: 40 mg Pregabalin (Lyrica) 100 mg PO BID [facility] Last Admin: 08/29/19 07:40 Dose: 100 mg Ramipril (Altace) 10 mg PO BID [facility] Last Admin: 08/29/19 07:41 Dose: 10 mg Senna/Docusate Sodium (Senokot S) 2 tab PO BIDPRN PRN PRN Reason: Constipation Sodium Chloride (Flush - Normal Saline) 10 ml IVF PRN PRN PRN Reason: Saline Flush Sodium Chloride (Flush - Normal Saline) 10 ml IVF PRN PRN PRN Reason: Saline Flush Vital Signs & Weight: Vital Signs Temp Pulse Resp BP BP BP Pulse Ox 08/29/19 07:41 158/65 H 08/29/19 07:34 97.8 F 61 18 158/65 H 98 08/29/19 04:00 97.3 F L 60 17 126/60 97 Weight 154 lb - Physical Exam General: alert & oriented x3, appears well, no apparent distress HEENT: mucus membranes moist, normocephaly Neck: supple neck, midline trachea, no JVD/HJR, no masses, no bruit, no lymphadenopathy, no thromegaly Cardiac: regular rate and rhythm, no murmur, regular rate, regular rhythm Lungs: clear to auscultation, normal breath sounds, normal exam, no wheeze, rales, rhonchi Neuro: grossly intact Abdomen: active bowel sounds, soft, non-tender Skin: other (PPM incision CDI. edges approximated) Musculoskeletal: no pain - Labs Result Diagrams: 08/26/19 04:39 08/28/19 04:45 Troponin/CKMB Troponin I Less than 0.010 ng/mL (< 0.028) 08/25/19 12:25 - Telemetry Sinus rhythms and dysrhythmias: sinus rhythm (demand pacing) - Assessment/Plan Assessment/Plan: 1. Recurrent syncope/near syncope 2. Bradycardia 3. Hypertension -difficult to control 4. Preseved LVEF 5. Prior CVA s/p dual chamber PPM on 08/28. device function is normal this AM. CXR is stable. continue clindamycin 300mg TID x 7 days post PPM implant. BP per cardiology/IM. Ok for DC by EP. Wound check in 2 weeks.
--- NOTE | 2019-08-30 09:04 | DIS ---
DATE OF ADMISSION: 08/27/2019 DATE OF DISCHARGE: 08/29/2019 PRIMARY CARE PHYSICIAN: Crow Guzman MD DISCHARGE DIAGNOSES: 1. Near syncope secondary to symptomatic sinus bradycardia. 2. Symptomatic sinus bradycardia. 3. Status post pacemaker placement. 4. Hypertension, stable. 5. Acute kidney injury on chronic kidney disease, improved. CONSULTATIONS: 1. Dr. Lieberman with Electrophysiology Service. 2. Dr. Huitron with Cardiology Service. PERTINENT LABORATORY AND X-RAY FINDINGS: Creatinine ranged between 1.12 to 1.42, estimated GFR ranged between 36 to 48, and magnesium level 2.1. BNP 67 and troponin I negative x1. CBC showed a hemoglobin of 11.6 and hematocrit 34.2. Portable chest x-ray dated 08/25/2019, showed no acute cardiopulmonary process. HOSPITAL COURSE: The patient was initially admitted after initially presenting status post near syncopal event. The patient was noted with sinus bradycardia initially receiving atropine by EMS personnel. The patient was discontinued on Coreg and evaluated by the Cardiology Service. The patient was monitored with discontinuation of Coreg and the addition of amlodipine. However, the patient's heart rate remained low with recommendations to pursue Electrophysiology evaluation. Due to the patient's symptomatic presentation and multiple near syncopal events, the patient was deemed an appropriate candidate for placement of a [employer] pacemaker device on 08/28/2019. The patient underwent the procedure without complication and remained clinically stable postoperatively. Telemetry monitoring shows an atrial paced, V-sensed rhythm in the 60s, and the patient is asymptomatic. I have examined the patient at the time of discharge and discussed followup instructions. The patient overall clinically stable and ready for discharge on 08/29/2019. DISCHARGE MEDICATIONS: 1. Aspirin 81 mg p.o. daily. 2. Carvedilol 12.5 mg p.o. b.i.d. 3. Celebrex 200 mg p.o. daily. 4. Plavix 75 mg p.o. daily. 5. Dexilant 60 mg p.o. daily. 6. Isosorbide dinitrate 20 mg p.o. b.i.d. 7. Ativan 0.5 mg p.o. b.i.d. 8. Lyrica 100 mg p.o. b.i.d. 9. Altace 10 mg p.o. b.i.d. 10. Simvastatin 20 mg p.o. at bedtime. 11. Clindamycin 300 mg p.o. t.i.d. x7 days. FOLLOWUP: The patient may follow up with her primary care provider, Dr. Crow Guzman within 7 days of discharge. The patient will follow up with Dr. Lieberman with Electrophysiology Service and to call the office for appointment time and date. The patient will follow up with Dr. Nixon with Cardiology Service. CONDITION ON DISCHARGE: Stable. ACTIVITY: Ad-jalen. DIET: Heart healthy. CODE STATUS: Full. DISPOSITION: To home on 08/29/2019. TIME SPENT: Total time preparing and coordinating discharge, 33 minutes. Job ID: [id number]
== END 2019-08-29 12:31 | disposition home or self-care (01) | DRG 243 ==
LOC: ERS 11:32 → 2SW 15:47 → OBSVTOIN 08-27 13:40 → 2NO 08-27 22:04
PROVIDERS: ADMIT Internal Medicine; ATTEND Internal Medicine
PROC: 3E02340 Introduction of Influenza Vaccine into Muscle, Percutaneous Approach (ICD-10-PCS; 2019-08-25)
PROC: 0JH606Z Insertion of Pacemaker, Dual Chamber into Chest Subcutaneous Tissue and Fascia, Open Approach (ICD-10-PCS; principal; 2019-08-28)
PROC: 02HK3JZ Insertion of Pacemaker Lead into Right Ventricle, Percutaneous Approach (ICD-10-PCS; 2019-08-28)
PROC: 02H63JZ Insertion of Pacemaker Lead into Right Atrium, Percutaneous Approach (ICD-10-PCS; 2019-08-28)
DX: R00.1 Bradycardia, unspecified (principal); I69.351 Hemiplegia and hemiparesis following cerebral infarction affecting right dominant side; N17.9 Acute kidney failure, unspecified; I50.32 Chronic diastolic (congestive) heart failure; I13.0 Hypertensive heart and chronic kidney disease with heart failure and stage 1 through stage 4 chronic kidney disease, or unspecified chronic kidney disease; M19.90 Unspecified osteoarthritis, unspecified site; G62.9 Polyneuropathy, unspecified; M35.3 Polymyalgia rheumatica; E78.5 Hyperlipidemia, unspecified; Z23 Encounter for immunization; F41.9 Anxiety disorder, unspecified; N18.9 Chronic kidney disease, unspecified; I70.1 Atherosclerosis of renal artery; Z88.0 Allergy status to penicillin; Z88.1 Allergy status to other antibiotic agents; Z88.5 Allergy status to narcotic agent; Z88.8 Allergy status to other drugs, medicaments and biological substances; Z90.49 Acquired absence of other specified parts of digestive tract; Z90.710 Acquired absence of both cervix and uterus; Z79.82 Long term (current) use of aspirin; Z79.899 Other long term (current) drug therapy; Z79.02 Long term (current) use of antithrombotics/antiplatelets
CPT/HCPCS: 33208; 36415; 36416; 71045; 75820; 80048; 80053; 83735; 83880; 84484; 85025; 93005; 94760; 99152; 99153; C1785; C1898; J2001; J2250; J3010; J3370; J3490; Q0163

== ENCOUNTER 2019-10-01 04:36 | Inpatient (IN) | payer MEDICARE ==
[2019-10-01] MEDS ORDERED: Acetaminophen 500 MG TAB ONE (05:08)
[2019-10-01 05:34] LABS: Bacteria/HPF 3+ HPF (None Seen); Bilirubin Negative (Negative); Blood, Urine Negative (Negative); Clarity Clear (Clear); Glucose, Urine (Dipstick) Normal (Negative); Leukocyte 250 Leu/uL (Negative); Nitrite 2+ (Negative); Protein, Urine (Dipstick) Negative (Neg-Trace); RBC/HPF 0-3 HPF (0-3); Squamous Epithelial 0-3 HPF (0-3); Urobilinogen Normal mg/dL (Less than 2); WBC/HPF 21-50 HPF (0-3)
[2019-10-01] MEDS ORDERED: Cefepime 2 GM VIAL ONE (05:40)
[2019-10-01 06:01] LABS: #Eosinphils 0.2 thou/uL (0.0-0.7); #Monocytes 0.6 thou/uL (0.11-0.59); #Neutrophils 5.5 thou/uL (1.40-6.50); %Basophils 0.1 % (0.0-1.0); %Eosinophils 2.5 % (0.0-10.0); %Lymphocytes 14.1 % (21.0-51.0); %Monocytes 7.7 % (0.0-10.0); %Neutrophils 75.6 % (42.0-75.0); Hemoglobin 11.5 g/dL (12.0-16.0); Mean Corpuscular HGB CONC 33.8 g/dL (32.0-36.0); Mean Corpuscular Hemoglobin 29.9 pg (27.0-31.0); Mean Corpuscular Volume 88.4 fL (78.0-98.0); Mean Platelet Volume 8.3 fL (7.4-10.4); Platelet Count 151 thou/uL (130-400); RBC Distribution Width 12.2 % (11.5-14.5); Red Blood Cell (RBC) Count 3.84 mill/uL (4.20-5.40); White Blood Cell (WBC) Count 7.3 thou/uL (4.8-10.8)
[2019-10-01 06:32] LABS: ALT (SGPT) 9 U/L (8-55); AST (SGOT) 16 U/L (5-34); Albumin 3.9 g/dL (3.4-4.8); Alkaline Phosphatase 45 U/L (40-110); Anion Gap 11 mmol/L (10-20); BUN (Urea Nitrogen) 13 mg/dL (9.8-20.1); Bilirubin, Total 0.4 mg/dL (0.2-1.2); Calc. Creatinine Clearance 0 mL/min (70-130); Carbon Dioxide 22 mmol/L (23-31); Chloride 110 mmol/L (98-107); Estimated GFR-MDRD 41; Glucose 109 mg/dL (83-110); Potassium 4.2 mmol/L (3.5-5.1); Protein, Total 5.9 g/dL (6.0-8.3); Sodium 139 mmol/L (136-145)
[2019-10-01] MEDS ORDERED: Aspirin 325 MG TAB ONE (06:42)
[2019-10-01 06:50] LABS: CKMB 1.5 ng/mL (0-6.6)
--- NOTE | 2019-10-01 08:19 | RAD ---
PORTABLE UPRIGHT FRONTAL CHEST RADIOGRAPH: DATE: 10/01/2019. COMPARISON: 08/28/2019. HISTORY: Fever, cough. FINDINGS: Right-sided dual-lead transvenous pacing device in stable position. Heart and mediastinal contours a re stable. Lungs appear clear. IMPRESSION: No acute findings. POS: [facility]
[2019-10-01 09:27] VITALS: BMI 29.7
[2019-10-01] MEDS ORDERED: Senokot S 8.6-50 MG TAB PO PRN (11:20)
[2019-10-01] MEDS ORDERED: Ondansetron PF 4 MG/2 ML Vial IVP PRN (11:20)
[2019-10-01] MEDS ORDERED: Ondansetron ODT 4 MG TAB PO PRN (11:20)
[2019-10-01] MEDS ORDERED: Bisacodyl 10 MG SUPP PR PRN (11:20)
[2019-10-01] MEDS ORDERED: Doxycycline 100 MG CAP PO SCH (11:30)
[2019-10-01] MEDS ORDERED: Enoxaparin Sodium 40 MG/0.4 ML SYRINGE SC SCH (12:00)
--- NOTE | 2019-10-01 12:55 | HP ---
PRIMARY CARE PHYSICIAN: Crow Guzman MD CHIEF COMPLAINT: Worsening cough and chills. HISTORY OF PRESENT ILLNESS: A 74-year-old female with known history of prior CVA associated with residual right-sided hemiparesis, hypertension, recurrent syncope as well as bradycardia, status post recent pacemaker placement, who presents to the ER due to worsening cough associated with chills. The patient also admitted to bilateral chest pain, which she reportedly attributed to cough paroxysms. She also has bilateral leg edema, which has not worsened. She also complained of painful micturition in the last several days. The patient has prior history of pneumonia, which required hospitalization. She admitted to sputum production of whitish sputum. She denied vomiting or change in bowel habit, hematuria, hematochezia, or melena. She also denied change in mental status, headache, or focal weakness that is new. On presentation to the ER, the patient was found to have leukocytosis, tachycardia, and fever with temperature of 103.4. Flu screen was negative for influenza. Impression of sepsis due to pneumonia was made and the patient was started on broad-spectrum antibiotic therapy with cefepime and vancomycin and admitted to the hospital for further evaluation and treatment. The patient also received aspirin as initial troponin was found to be mildly elevated at 0.061. PAST MEDICAL HISTORY: 1. Recurrent syncope. 2. Bradycardia, status post pacemaker placement. 3. Hypertension. 4. Prior CVA with residual right-sided weakness. 5. Diastolic heart failure. 6. Mild mitral regurgitation. 7. CKD, stage 3. 8. Prior pneumonia. 9. Osteoarthritis. PAST SURGICAL HISTORY: 1. Cholecystectomy. 2. Hysterectomy. 3. Left wrist surgery. FAMILY HISTORY: Reviewed, but noncontributory. SOCIAL HISTORY: The patient lives with spouse. Denied alcohol, drugs, or recreational drug use or smoking. ALLERGIES: 1. CODEINE. 2. LACTULOSE. 3. LEVOFLOXACIN. 4. PENICILLIN. 5. TRAMADOL. 6. ZITHROMAX. HOME MEDICATIONS: 1. Aspirin 81 mg p.o. daily. 2. Carvedilol 12.5 mg p.o. b.i.d. 3. Plavix 75 mg p.o. daily. 4. Simvastatin 20 mg p.o. daily at bedtime. 5. Lyrica 75 mg p.o. b.i.d. 6. Celebrex 200 mg p.o. daily p.r.n. 7. Ramipril 10 mg b.i.d. 8. Isosorbide mononitrate 20 mg p.o. b.i.d. 9. Dexilant 60 mg p.o. daily. 10. Carvedilol 12.5 mg p.o. b.i.d. REVIEW OF SYSTEMS: Twelve-point review of system performed was negative other than pertinent positives and negatives included in the history of present illness. PHYSICAL EXAMINATION: VITAL SIGNS: Initial vitals on presentation to the ER showed blood pressure 180/70, pulse 100, respiratory rate 22, and temperature 103.4. Pain 8/10. SpO2 of 93% on room air. Most current vitals showed temperature 99.0, pulse 73, respiratory rate 18, SpO2 of 94% on room air, and blood pressure is 126/60. GENERAL: Comfortable elderly female, in no obvious distress. Afebrile. Anicteric. Acyanotic. HEENT: Normocephalic, atraumatic. Oral mucosa is moist. NECK: Supple. Nontender. CARDIOVASCULAR: Regular rhythm and rate. Soft systolic murmur noted. RESPIRATORY: Fair air entry bilaterally with some transmitted breath sounds. Few scattered rhonchi also are appreciated. However, there are no use of accessory muscles or respiratory distress. GASTROINTESTINAL: Obese, soft, nontender, and nondistended with normal bowel sounds. EXTREMITIES: Mild bilateral leg edema noted. No erythema was appreciated, however. CENTRAL NERVOUS SYSTEM: Conscious, alert, oriented x3 with appropriate mental status. Cranial nerves II through XII are grossly intact. PSYCHIATRIC: Normal affect and cooperative. DIAGNOSTIC DATA: CBC showed WBC count of 7.3, hemoglobin of 11.5, and platelet of 151. CMP showed sodium 139, potassium 4.2, chloride 110, CO2 of 22, BUN 13, creatinine 1.29, glucose 109, calcium 9.0, total bilirubin 0.4, AST 16, ALT 9, alkaline phosphatase 45, total protein 5.9, albumin 3.9, and globulin 2.0. Initial cardiac enzymes showed CK-MB 1.5, troponin 0.061. BNP is 113.6. Repeat troponin 3 hours later was 0.184. Urinalysis showed light yellow urine with pH of 5.5, specific gravity of 1.008, negative protein, ketone, blood, and bilirubin. Nitrite is positive as well as leukocyte esterase. Microscopy showed 0 to 3 rbc and 21 to 50 wbc with 3+ bacteria. EKG showed sinus tachycardia with rate of 101. No obvious ischemic changes noted. Chest x-ray showed right-sided dual lead transvenous pacing device in stable position. Heart and mediastinal contours are stable and lung trotter appear clear. Flu screen was negative. ASSESSMENT: 1. Sepsis: Etiology is unclear. Most likely due to pneumonia and/or urinary tract infection. Viral infection also is a concern. 2. Chest pain: Pleuritic in nature. However, the association of troponin elevation is concerning for cardiac chest pain. 3. Elevated troponin: Acute myocardial infarction or demand ischemia. 4. Symptomatic bradycardia, status post recent pacemaker placement. 5. Chronic kidney disease with reversible ischemia with reversible acute kidney injury: Most likely related to medication and sepsis. The patient is on celecoxib as well as ramipril. 6. Mild bilateral leg edema: Most likely related to hypoalbuminemia and diastolic heart failure. Recent echo showed preserved systolic function. 7. Prior cerebrovascular accident with residual right-sided hemiparesis. 8. Diastolic heart failure: Chronic with no obvious acute exacerbation. 9. Mild mitral regurgitation. PLAN: 1. We will get blood culture as well as sputum culture. We will also get respiratory viral panel. 2. We will continue broad-spectrum antibiotic therapy with vancomycin, cefepime, and doxycycline. 3. We will get serial troponin. 4. We will consult Cardiology. 5. Analgesic as needed will be provided as well as antiemetics. 6. We will hold ramipril as well as celecoxib given renal insufficiency. 7. We will continue aspirin and Plavix. 8. Eleanor oral intake will be commenced. 9. We will follow renal function. 10. Code status, full code. The patient's spouse is the surrogate decision maker. Further treatment to follow depending on hospital course. Job ID: [id number]
[2019-10-01 15:33] LABS: Troponin I 0.099 ng/mL (< 0.028)
[2019-10-01] MEDS: Lorazepam 0.5 MG TAB PO PRN (15:55)
[2019-10-01] MEDS ORDERED: Loratadine 10 MG TAB PO SCH (16:45)
[2019-10-01] MEDS: Acetaminophen 325 MG TAB PO PRN (17:48)
[2019-10-01] MEDS ORDERED: Famotidine/PF 20 mg/2ml Vial SLOW IVP SCH (21:00)
[2019-10-01] MEDS: Isosorbide Dinitrate 20 MG TAB PO SCH (22:13)
[2019-10-01] MEDS: Carvedilol 25 MG TAB PO SCH (22:13)
[2019-10-01] MEDS: Famotidine 20 MG TAB PO SCH (22:13)
[2019-10-01] MEDS: Atorvastatin Calcium 10 MG TAB PO SCH (22:14)
[2019-10-01] MEDS: Doxycycline 100 MG CAP PO SCH (22:14)
[2019-10-01] MEDS ORDERED: Benzonatate 100 MG CAP PO PRN (23:58)
--- NOTE | 2019-10-02 01:48 | CON ---
DATE OF CONSULTATION: HISTORY OF PRESENT ILLNESS: Pratima Casey is a 74-year-old white female, patient of Dr. Nixon. He first evaluated her in March 2019 when she had an elevated troponin level. She underwent Cardiolite testing, which revealed no evidence of ischemia. On 04/04/2019, she underwent cardiac catheterization, had an ejection fraction of 65%. There was a distal circumflex 40% stenosis. She was again admitted in August 2019 with weakness and bradycardia and ultimately underwent placement of a dual-chamber pacemaker by Dr. Lieberman. She has continued to follow up with Dr. Nixon regarding her hypertension and was last seen on 09/06/2019. She now is admitted with fever and cough over the last 4 days. Whenever she coughs, she has trouble stopping and she would develop lower rib margin discomfort, however this is only present while she is coughing. She has been found to have parainfluenza 4 and is admitted for further evaluation. PAST MEDICAL HISTORY: History of CVA with residual right-sided hemiparesis approximately 4 years ago, hypertension, diastolic heart failure, chronic kidney disease, anxiety, rheumatoid arthritis, GERD, renal artery stenosis. PAST SURGICAL HISTORY: Cholecystectomy, hysterectomy, left wrist surgery, and pacemaker placement. MEDICATIONS: 1. Aspirin 81 daily. 2. Carvedilol 12.5 b.i.d. 3. Celebrex 200 mg daily. 4. Plavix 75 mg daily. 5. Dexilant 60 mg daily. 6. Isosorbide dinitrate 20 b.i.d. 7. Ativan 0.5 b.i.d. 8. Lyrica 50 b.i.d. 9. Phenergan 25 mg p.r.n. 10. Altace 10 mg at bedtime. 11. Simvastatin 20 mg daily. ALLERGIES: CODEINE, AZITHROMYCIN, CORTISONE, LACTULOSE, LEVAQUIN, TRAMADOL, PENICILLINS. PHYSICAL EXAMINATION: VITAL SIGNS: Blood pressure 136/64, pulse of 92, sinus rhythm on the monitor HEENT: PERRL. NECK: Supple. CHEST: Reveals expiratory wheezing bilaterally. CARDIOVASCULAR: S1 and S2 normal without any S3, S4, or murmurs. ABDOMEN: Obese. Normal bowel sounds. No tenderness. EXTREMITIES: Revealed 1+ pretibial edema. NEUROLOGICAL: Right hemiparesis. MUSCULOSKELETAL: Revealed no palpable chest wall tenderness. LABORATORY DATA: EKG reveals sinus tachycardia. Hemoglobin 11.5, hematocrit 33.9, white count 7300, platelets 151,000. Sodium 139, potassium 4.2, chloride 110, carbon dioxide 24, BUN 13, creatinine 1.29. Troponin I 0.184. BNP 113.6. IMPRESSION: 1. Musculoskeletal chest pains associated with coughing. 2. [id number] myocardial infarction, type 2. 3. Mild coronary artery disease with 40% distal circumflex in March 2019. 4. History of diastolic heart failure. 5. Status post dual-chamber pacemaker placement. 6. Hypertension. 7. Hypercholesterolemia. 8. Renal artery stenosis. PLAN: Ms. Casey's chest pain appears to be related to musculoskeletal pain from her coughing. With catheterization 6 months ago, I do not feel that any further cardiac evaluation is probably warranted unless her clinical situation changes. Job ID: [id number]
[2019-10-02 04:38] LABS: #Eosinphils 0.2 thou/uL (0.0-0.7); #Neutrophils 5.5 thou/uL (1.40-6.50); %Basophils 0.3 % (0.0-1.0); %Lymphocytes 23.3 % (21.0-51.0); %Monocytes 11.1 % (0.0-10.0); %Neutrophils 63.4 % (42.0-75.0); Hemoglobin 9.9 g/dL (12.0-16.0); Mean Corpuscular HGB CONC 34.1 g/dL (32.0-36.0); Mean Corpuscular Hemoglobin 30.4 pg (27.0-31.0); Mean Corpuscular Volume 89.3 fL (78.0-98.0); Mean Platelet Volume 8.3 fL (7.4-10.4); Platelet Count 138 thou/uL (130-400); RBC Distribution Width 12.2 % (11.5-14.5); Red Blood Cell (RBC) Count 3.27 mill/uL (4.20-5.40); White Blood Cell (WBC) Count 8.7 thou/uL (4.8-10.8)
[2019-10-02 04:58] LABS: Anion Gap 12 mmol/L (10-20); BUN (Urea Nitrogen) 12 mg/dL (9.8-20.1); Calc. Creatinine Clearance 52 mL/min (70-130); Calcium 8.5 mg/dL (7.8-10.44); Carbon Dioxide 22 mmol/L (23-31); Cardiac Risk 2.7 (Less than 4.5); Chloride 111 mmol/L (98-107); Cholesterol 102 mg/dl (< 200 Desired); Estimated GFR-MDRD 50; Glucose 94 mg/dL (83-110); HDL Cholesterol 38 mg/dL (>60 Neg Risk); LDL Cholesterol, Calculated 54 mg/dL; Potassium 3.5 mmol/L (3.5-5.1); Sodium 141 mmol/L (136-145); Triglycerides 52 mg/dL (Less than 150)
[2019-10-02] MEDS: Cefepime 2 GM in Sodium Chloride 0.9% 100 ML IVPB SCH (06:28)
[2019-10-02] MEDS ORDERED: Vancomycin HCl 1 GM in Premix Bag 1 BAG IVPB SCH (07:00)
[2019-10-02] MEDS: Lorazepam 0.5 MG TAB PO PRN ×2 (08:17→18:20)
[2019-10-02] MEDS: Aspirin Chewable 81 MG TAB PO SCH (08:17)
[2019-10-02] MEDS: Acetaminophen 325 MG TAB PO PRN ×2 (08:17→19:51)
[2019-10-02] MEDS: Doxycycline 100 MG CAP PO SCH ×2 (08:17→19:50)
[2019-10-02] MEDS: Carvedilol 25 MG TAB PO SCH ×2 (08:18→19:49)
[2019-10-02] MEDS: Isosorbide Dinitrate 20 MG TAB PO SCH ×2 (08:18→19:50)
[2019-10-02] MEDS ORDERED: Diabetic Tussin 200 MG/10 ML UDCUP PO PRN (08:24)
[2019-10-02] MEDS ORDERED: Clopidogrel Bisulfate 75 MG TAB PO SCH (09:00)
[2019-10-02] MEDS ORDERED: Enoxaparin Sodium 40 MG/0.4 ML SYRINGE SC SCH (09:00)
[2019-10-02] MEDS: guaiFENesin ER 600 MG TAB PO SCH ×2 (09:17→19:50)
[2019-10-02] MEDS: Diabetic Tussin 200 MG/10 ML UDCUP PO PRN ×2 (12:31→17:37)
--- NOTE | 2019-10-02 14:25 | PDOC.HOSPP ---
- Subjective Encounter Date: 10/02/19 Encounter Time: 11:00 Subjective: Patient seen and examined for Cough/SOB. Cough with mild production. No CP. No new complaints. No overnight events - Objective Vital Signs & Weight: Vital Signs (12 hours) Temp Pulse Resp BP Pulse Ox 10/02/19 11:54 97.7 F 62 16 146/64 H 95 10/02/19 07:26 98.2 F 74 20 156/64 H 98 10/02/19 04:04 98.5 F 62 15 139/63 95 Weight Weight 157 lb 11.2 oz Result Diagrams: 10/02/19 03:57 10/02/19 03:57 Additional Labs: Microbiology 10/01/19 10:04 Nasopharyngeal swab Respiratory Virus Panel (PCR) - Final 10/01/19 05:31 Nasopharyngeal swab Influenza Types A,B Direct EIA - Final 10/01/19 05:49 Venous blood - Left Arm Blood Culture - Preliminary Specimen has been received and culture in progress. No Growth to date. 10/01/19 05:22 Venous blood - Right Hand Blood Culture - Preliminary Specimen has been received and culture in progress. No Growth to date. 10/01/19 05:02 Urine voided Urine Culture - Preliminary Gram Negative [facility] Tests 10/01/19 08:43 Troponin I 0.184 H Radiology Reviewed by me: Yes (CXR - No infiltrate) EKG Reviewed by me: Yes (Tele SR) Hospitalist ROS - Review of Systems Cardiovascular: denies: chest pain, palpitations, orthopnea, paroxysmal noc. dyspnea, edema, light headedness, other Gastrointestinal: denies: nausea, vomiting, abdominal pain, diarrhea, constipation, melena, hematochezia, other - Medication Medications: Active Medications Generic Name Dose Route Start Last Admin Trade Name Freq PRN Reason Stop Dose Admin Acetaminophen 650 mg 10/01/19 11:20 10/02/19 08:17 Tylenol PO 650 mg Q4H PRN Administration Headache/Fever/Mild Pain (1-3) Aspirin 81 mg 10/02/19 09:00 10/02/19 08:17 Aspirin Chewable PO 81 mg DAILY PAU Administration Atorvastatin Calcium 10 mg 10/01/19 21:00 10/01/19 22:14 Lipitor PO 10 mg HS PAU Administration Carvedilol 12.5 mg 10/01/19 21:00 10/02/19 08:18 Coreg PO 12.5 mg BID PAU Administration Doxycycline Hyclate 100 mg 10/01/19 21:00 10/02/19 08:17 Vibramycin PO 100 mg BID PAU Administration Enoxaparin Sodium 40 mg 10/02/19 09:00 10/02/19 08:18 Lovenox SC 40 mg 0900 PAU Administration Famotidine 20 mg 10/01/19 21:00 10/01/19 22:15 Pepcid SLOW IVP Not Given 2100 PAU Famotidine 20 mg 10/01/19 21:00 10/01/19 22:13 Pepcid PO 20 mg 2100 PAU Administration Guaifenesin 600 mg 10/02/19 09:00 10/02/19 09:17 Mucinex PO 600 mg Q12HR PAU Administration Guaifenesin 200 mg 10/02/19 11:38 10/02/19 12:31 Robitussin Sf PO 200 mg Q4H PRN Administration Cough Cefepime HCl 2 gm/ Sodium 100 mls @ 200 mls/hr 10/02/19 06:00 10/02/19 06:28 Chloride IVPB 100 mls 0600 [facility] Administration Isosorbide Dinitrate 20 mg 10/01/19 21:00 10/02/19 08:18 Isordil PO 20 mg BID PAU Administration Lorazepam 0.5 mg 10/01/19 15:11 10/02/19 08:17 Ativan PO 0.5 mg BIDPRN PRN Administration Anxiety Sodium Chloride 10 ml 10/02/19 09:00 10/02/19 09:17 Flush - Normal Saline IVF 10 ml Q12HR PAU Administration - Exam General Appearance: ill appearing Heart: RRR, no gallops Respiratory: no rales, rhonchi, wheezes Gastrointestinal: soft, non-distended, normal bowel sounds Extremities: no edema Hosp A/P - Plan DVT proph w/SCDs Sepsis due to Acute Bronchitis-Parainfluenza/UTI Hypokalemia Type 2 [place] HTN Chronic diastolic HF SSS s/p Pacemaker PLAN: DC Vancomycin Cont Cefepime Replace Potassium Add Mucinex AM labs
[2019-10-02] MEDS: Potassium Chloride 10 MEQ TAB PO SCH (17:37)
[2019-10-02] MEDS: diphenhydrAMINE 25 MG CAP PO PRN (17:38)
[2019-10-02] MEDS: Atorvastatin Calcium 10 MG TAB PO SCH (19:50)
[2019-10-02] MEDS: Famotidine 20 MG TAB PO SCH (19:50)
[2019-10-02] MEDS: Cepastat Lozenges 1 LOZ PO PRN (19:51)
[2019-10-03] MEDS: Diabetic Tussin 200 MG/10 ML UDCUP PO PRN (00:28)
[2019-10-03 05:39] LABS: #Eosinphils 0.3 thou/uL (0.0-0.7); #Lymphocytes 1.6 thou/uL (1.20-3.40); #Monocytes 0.6 thou/uL (0.11-0.59); #Neutrophils 2.4 thou/uL (1.40-6.50); %Basophils 0.7 % (0.0-1.0); %Eosinophils 6.4 % (0.0-10.0); %Lymphocytes 32.9 % (21.0-51.0); %Monocytes 11.3 % (0.0-10.0); %Neutrophils 48.7 % (42.0-75.0); Hemoglobin 10.1 g/dL (12.0-16.0); Mean Corpuscular HGB CONC 33.9 g/dL (32.0-36.0); Mean Corpuscular Hemoglobin 30.2 pg (27.0-31.0); Mean Corpuscular Volume 89.1 fL (78.0-98.0); Mean Platelet Volume 8.4 fL (7.4-10.4); Platelet Count 148 thou/uL (130-400); RBC Distribution Width 12.1 % (11.5-14.5); Red Blood Cell (RBC) Count 3.34 mill/uL (4.20-5.40)
[2019-10-03 05:56] LABS: Albumin 3.2 g/dL (3.4-4.8); Anion Gap 11 mmol/L (10-20); BUN (Urea Nitrogen) 9 mg/dL (9.8-20.1); BUN/Creatinine Ratio 9.28; Calc. Creatinine Clearance 58 mL/min (70-130); Calcium 8.6 mg/dL (7.8-10.44); Carbon Dioxide 21 mmol/L (23-31); Chloride 111 mmol/L (98-107); Estimated GFR-MDRD 56; Glucose 94 mg/dL (83-110); Magnesium 1.8 mg/dL (1.6-2.6); Phosphorus 2.6 mg/dL (2.3-4.7); Potassium 3.7 mmol/L (3.5-5.1); Sodium 139 mmol/L (136-145)
[2019-10-03] MEDS: Cefepime 2 GM in Sodium Chloride 0.9% 100 ML IVPB SCH (06:20)
[2019-10-03] MEDS ORDERED: cloNIDine 0.1 MG TAB PO SCH (06:45)
[2019-10-03] MEDS: Lorazepam 0.5 MG TAB PO PRN ×2 (07:58→20:36)
[2019-10-03] MEDS: Potassium Chloride 10 MEQ TAB PO SCH ×2 (07:58→16:01)
[2019-10-03] MEDS: Saccharomyces boulardii 250 MG CAP PO SCH (07:59)
[2019-10-03] MEDS: Carvedilol 25 MG TAB PO SCH ×2 (08:01→20:34)
[2019-10-03] MEDS: Aspirin Chewable 81 MG TAB PO SCH (08:02)
[2019-10-03] MEDS: Isosorbide Dinitrate 20 MG TAB PO SCH ×2 (08:02→20:34)
[2019-10-03] MEDS: guaiFENesin ER 600 MG TAB PO SCH ×2 (08:03→20:35)
[2019-10-03] MEDS: Doxycycline 100 MG CAP PO SCH ×2 (08:03→20:35)
[2019-10-03] MEDS: diphenhydrAMINE 25 MG CAP PO PRN ×3 (09:47→23:36)
[2019-10-03] MEDS: Cepastat Lozenges 1 LOZ PO PRN ×2 (11:26→18:15)
[2019-10-03] MEDS: Atorvastatin Calcium 10 MG TAB PO SCH (20:34)
[2019-10-03] MEDS: Famotidine 20 MG TAB PO SCH (20:35)
[2019-10-03] MEDS ORDERED: hydrALAZINE 20 MG/ML VIAL SLOW IVP PRN (22:43)
[2019-10-04] MEDS: Cefepime 2 GM in Sodium Chloride 0.9% 100 ML IVPB SCH (06:14)
--- NOTE | 2019-10-04 07:47 | PDOC.HOSPP ---
- Subjective Encounter Date: 10/03/19 Encounter Time: 15:00 Subjective: Patient seen and examined for Sepsis. Dry cough +. SOB/wheezing improving. No new complaints. No overnight events - Objective Vital Signs & Weight: Vital Signs (12 hours) Temp Pulse Resp BP Pulse Ox 10/04/19 04:00 98.5 F 71 18 148/61 H 95 10/03/19 23:48 98.4 F 61 20 136/71 96 10/03/19 20:00 98.1 F 70 18 158/62 H 96 Weight Weight 157 lb 11.2 oz I&O: 10/03/19 10/04/19 10/05/19 06:59 06:59 06:59 Intake Total 1680 1280 Balance 1680 1280 Result Diagrams: 10/03/19 05:24 10/03/19 05:24 Hospitalist ROS - Review of Systems Cardiovascular: denies: chest pain, palpitations, orthopnea, paroxysmal noc. dyspnea, edema, light headedness, other Gastrointestinal: denies: nausea, vomiting, abdominal pain, diarrhea, constipation, melena, hematochezia, other - Medication Medications: Active Medications Generic Name Dose Route Start Last Admin Trade Name Freq PRN Reason Stop Dose Admin Acetaminophen 650 mg 10/01/19 11:20 10/02/19 19:51 Tylenol PO 650 mg Q4H PRN Administration Headache/Fever/Mild Pain (1-3) Aspirin 81 mg 10/02/19 09:00 10/03/19 08:02 Aspirin Chewable PO 81 mg DAILY PAU Administration Atorvastatin Calcium 10 mg 10/01/19 21:00 10/03/19 20:34 Lipitor PO 10 mg HS PAU Administration Carvedilol 12.5 mg 10/01/19 21:00 10/03/19 20:34 Coreg PO 12.5 mg BID PAU Administration Diphenhydramine HCl 25 mg 10/02/19 11:38 10/03/19 23:36 Benadryl PO 25 mg Q6H PRN Administration Itching & Insomnia Famotidine 20 mg 10/01/19 21:00 10/03/19 20:35 Pepcid PO 20 mg 2100 PAU Administration Guaifenesin 600 mg 10/02/19 09:00 10/03/19 20:35 Mucinex PO Not Given Q12HR PAU Guaifenesin 200 mg 10/02/19 11:38 10/03/19 00:28 Robitussin Sf PO 200 mg Q4H PRN Administration Cough Cefepime HCl 2 gm/ Sodium 100 mls @ 200 mls/hr 10/02/19 06:00 10/04/19 06:14 Chloride IVPB 100 mls 0600 PAU Administration Isosorbide Dinitrate 20 mg 10/01/19 21:00 10/03/19 20:34 Isordil PO 20 mg BID PAU Administration Lorazepam 0.5 mg 10/01/19 15:11 10/03/19 20:36 Ativan PO 0.5 mg BIDPRN PRN Administration Anxiety Saccharomyces Boulardii 250 mg 10/03/19 09:00 10/03/19 07:59 Florastor PO 250 mg DAILY PAU Administration Sodium Chloride 10 ml 10/02/19 09:00 10/03/19 20:36 Flush - Normal Saline IVF 10 ml Q12HR PAU Administration Throat Lozenges 1 charlene 10/02/19 11:38 10/03/19 18:15 Cepastat Lozenges PO 1 charlene Q2H PRN Administration Sore Throat - Exam General Appearance: NAD Heart: RRR, no gallops Respiratory: no wheezes, no rales, rhonchi Gastrointestinal: soft, non-distended Extremities: no cyanosis, no edema Hosp A/P - Plan DVT proph w/SCDs Sepsis due to Acute Bronchitis-Parainfluenza/UTI Hypokalemia Type 2 [place] HTN Chronic diastolic HF SSS s/p Pacemaker PLAN: DC Doxycycline and Mucinex for possible allergic reaction per patient report Cont Cefepime - change to Omnicef in AM DC plans in AM if stable Cont other meds
[2019-10-04] MEDS: Saccharomyces boulardii 250 MG CAP PO SCH (08:22)
[2019-10-04] MEDS: Carvedilol 25 MG TAB PO SCH (08:22)
[2019-10-04] MEDS: Lorazepam 0.5 MG TAB PO PRN (08:22)
[2019-10-04] MEDS: Aspirin Chewable 81 MG TAB PO SCH (08:23)
[2019-10-04] MEDS: Isosorbide Dinitrate 20 MG TAB PO SCH (08:23)
[2019-10-04] MEDS: diphenhydrAMINE 25 MG CAP PO PRN (08:42)
[2019-10-04 11:42] VITALS: BP 151/73; TEMP 98.4
--- NOTE | 2019-10-05 14:39 | DIS ---
DATE OF ADMISSION: 10/01/2019 DATE OF DISCHARGE: 10/04/2019 DISCHARGE DISPOSITION: Home. FOLLOWUP: Follow up with primary care physician, Dr. Crow Guzman, in 1 week. The patient was seen and examined on the day of discharge. Denies any new complaints. No chest pain, shortness of breath, or palpitations. DISCHARGE MEDICATIONS: Same as admission medication. DIAGNOSTIC TESTS: 1. WBC 7.3 with 75.6% neutrophils on admission. 2. Maximum troponin was 0.184. 3. Creatinine on admission 1.29 and at discharge 0.97. 4. Urinalysis showed 21-50 wbc's with 3+ bacteria. 5. Respiratory viral panel was positive for parainfluenza 4 virus. 6. Blood culture negative. 7. Influenza testing negative. 8. Urine culture showed Klebsiella sensitive to cephalosporins. 9. Chest x-ray was negative for infiltrate. BRIEF HOSPITAL COURSE: The patient is a 74-year-old female with hypertension, diastolic heart failure, and CKD, presented to the hospital with worsening cough along with chills. Workup was consistent with sepsis secondary to parainfluenza bronchitis. She was also found to have Klebsiella UTI. She was placed on IV cefepime on admission. She received antibiotics throughout her hospital stay. Due to allergies to several antibiotics including steroids, no more antibiotics were prescribed at discharge. She has cystitis and has completed IV antibiotics. Respiratory symptoms have significantly improved. She also had mild allergic reaction, probably secondary to loratadine versus doxycycline. She was advised to follow up with the career information specialist as outpatient. She appears stable for discharge. FINAL DIAGNOSES: 1. Sepsis secondary to acute bronchitis due to parainfluenza. 2. Urinary tract infection. 3. Chronic diastolic heart failure. 4. Sick-sinus syndrome, status post pacemaker. 5. Hypokalemia, replaced. 6. Type-2 myocardial infarction. 7. Hypertension. 8. History of cerebrovascular accident with residual right-sided weakness. 9. Mild mitral regurgitation. 10. Acute kidney injury on chronic kidney disease stage 3. 11. Degenerative joint disease. 12. Chronic anemia. PLAN: Plan of care was discussed with the patient in detail. She stated understanding. Job ID: [id number]
== END 2019-10-04 11:48 | disposition home or self-care (01) | DRG 871 ==
LOC: ERS 04:36 → 2NO 08:01 → T4-B 10-02 23:39
PROVIDERS: ADMIT Family Medicine; ATTEND Family Medicine
DX: A41.89 Other specified sepsis (principal); I21.A1 Myocardial infarction type 2; N39.0 Urinary tract infection, site not specified; I69.951 Hemiplegia and hemiparesis following unspecified cerebrovascular disease affecting right dominant side; I13.0 Hypertensive heart and chronic kidney disease with heart failure and stage 1 through stage 4 chronic kidney disease, or unspecified chronic kidney disease; I50.32 Chronic diastolic (congestive) heart failure; M19.90 Unspecified osteoarthritis, unspecified site; M35.3 Polymyalgia rheumatica; Z90.710 Acquired absence of both cervix and uterus; Z90.49 Acquired absence of other specified parts of digestive tract; R40.2362 Coma scale, best motor response, obeys commands, at arrival to emergency department; R40.2142 Coma scale, eyes open, spontaneous, at arrival to emergency department; R40.2252 Coma scale, best verbal response, oriented, at arrival to emergency department; R00.1 Bradycardia, unspecified; N18.3 Chronic kidney disease, stage 3 (moderate); E88.09 Other disorders of plasma-protein metabolism, not elsewhere classified; I34.0 Nonrheumatic mitral (valve) insufficiency; K21.9 Gastro-esophageal reflux disease without esophagitis; Z95.0 Presence of cardiac pacemaker; Z88.1 Allergy status to other antibiotic agents; Z88.5 Allergy status to narcotic agent; Z88.0 Allergy status to penicillin; R07.89 Other chest pain; I25.10 Atherosclerotic heart disease of native coronary artery without angina pectoris; E87.6 Hypokalemia; J20.4 Acute bronchitis due to parainfluenza virus
CPT/HCPCS: 36415; 71045; 80048; 80053; 80061; 80069; 81003; 81015; 82553; 83605; 83735; 83880; 84484; 85025; 87040; 87077; 87086; 87186; 87633; 87804; 93005; 96365; 96367; J0692; J1650; J3370; J3490; Q0163

== ENCOUNTER 2020-01-03 14:49 | Outpatient (CLI) | payer MEDICARE ==
--- NOTE | 2020-01-03 15:25 | RAD ---
EXAM: Chest 2 views: HISTORY: Cough COMPARISON: 10/01/2019 FINDINGS: Right transvenous pacemaker. Evidence for left lower lobe calcified granuloma Heart size:Within normal limits. Lungs:Clear of acute process. Atherosclerotic changes of the aorta. No confluent pneumonia, overt edema, pleural effusion, pneumothorax, or other significant acute proce ss. IMPRESSION: Atherosclerosis of the aorta. No acute intrathoracic disease.
--- NOTE | 2020-01-03 15:33 | RAD ---
Cervical spine 5 views: 01/03/2020 COMPARISON: None HISTORY: Cervical spine pain FINDINGS: Open-mouth odontoid view demonstrates a normal-appearing dens and C1-2 articulation. Multil evel mid cervical spine facet and uncovertebral osteophyte formation, right greater than left, most prominent at C4-5 and C5-6. There is disc space narrowing with anterior and posterior osteophyte form ation at C5-6. No anterolisthesis or retrolisthesis within the cervical spine. IMPRESSION: Degenerative disc disease within the cervical spine as above.
== END 2020-01-03 14:50 | disposition home or self-care (01) ==
LOC: BICRAD 14:49
PROVIDERS: ATTEND Specialist
DX: M54.2 Cervicalgia (principal); R05 Cough; R07.81 Pleurodynia; R29.6 Repeated falls; M50.322 Other cervical disc degeneration at C5-C6 level; I70.0 Atherosclerosis of aorta
CPT/HCPCS: 71046; 72040

== ENCOUNTER 2020-03-19 16:18 | Outpatient (CLI) | payer MEDICARE ==
--- NOTE | 2020-03-20 09:17 | MMO ---
Bilateral MAMMO Bilat Screen [facility]. CLINICAL HISTORY: Patient is 74 years old and is seen for screening. The patient has the following family history of breast cancer: maternal grandmother. The patient has no personal history of cancer. VIEWS: The views performed were: bilateral craniocaudal with tomosynthesis and bilateral mediolateral oblique with tomosynthesis. FILMS COMPARED: The present examination has been compared to prior imaging studies performed at [facility] on 04/26/2013, 10/31/2014 and 05/27/2016, and at [facility] [place] on 02/17/2012. This study has been interpreted with the assistance of computer-aided detection. MAMMOGRAM FINDINGS: There are scattered fibroglandular densities. Benign calcifications are noted bilaterally. There are no suspicious masses, suspicious calcifications, or new areas of architectural distortion. IMPRESSION: THERE IS NO MAMMOGRAPHIC EVIDENCE OF MALIGNANCY. A ROUTINE FOLLOW-UP MAMMOGRAM IN 1 YEAR IS RECOMMENDED. THE RESULTS OF THIS EXAM WERE SENT TO THE PATIENT. ACR BI-RADS Category 2 - Benign finding MAMMOGRAPHY NOTE: 1. A negative mammogram report should not delay a biopsy if a dominant of clinically suspicious mass is present. 2. Approximately 10% to 15% of breast cancers are not detected by mammography. 3. Adenosis and dense breasts may obscure an underlying neoplasm. Reported by: KENNEDY VALENTINE MD Electonically Signed: [id number]
== END 2020-03-19 16:19 | disposition home or self-care (01) ==
LOC: BICMAMMO 16:18
PROVIDERS: ATTEND Specialist
DX: Z12.31 Encounter for screening mammogram for malignant neoplasm of breast (principal); Z80.3 Family history of malignant neoplasm of breast
CPT/HCPCS: 77063; 77067

== ENCOUNTER 2020-08-08 07:16 | Emergency (ER) | payer MEDICARE ==
[2020-08-08 08:31] LABS: #Eosinphils 0.1 thou/uL (0.0-0.7); #Monocytes 0.6 thou/uL (0.11-0.59); %Basophils 0.3 % (0.0-1.0); %Lymphocytes 12.7 % (21.0-51.0); %Monocytes 7.5 % (0.0-10.0); %Neutrophils 78.6 % (42.0-75.0); Mean Corpuscular HGB CONC 32.6 g/dL (32.0-36.0); Mean Corpuscular Volume 91.9 fL (78.0-98.0); Mean Platelet Volume 9.2 fL (7.4-10.4); Platelet Count 166 thou/uL (130-400); RBC Distribution Width 11.8 % (11.5-14.5); Red Blood Cell (RBC) Count 4.02 mill/uL (4.20-5.40); White Blood Cell (WBC) Count 7.6 thou/uL (4.8-10.8)
[2020-08-08 08:51] LABS: ALT (SGPT) 10 U/L (8-55); AST (SGOT) 16 U/L (5-34); Albumin 3.9 g/dL (3.4-4.8); Alkaline Phosphatase 45 U/L (40-110); Anion Gap 12 mmol/L (10-20); BUN (Urea Nitrogen) 23 mg/dL (9.8-20.1); Bilirubin, Total 0.4 mg/dL (0.2-1.2); Calc. Creatinine Clearance 0 mL/min (70-130); Carbon Dioxide 22 mmol/L (23-31); Chloride 105 mmol/L (98-107); Estimated GFR-MDRD 39; Globulin 2.2 g/dL (2.4-3.5); Glucose 110 mg/dL (83-110); Lipase 17 U/L (8-78); Potassium 4.2 mmol/L (3.5-5.1); Protein, Total 6.1 g/dL (6.0-8.3); Sodium 135 mmol/L (136-145)
--- NOTE | 2020-08-08 11:02 | CT ---
CT ABDOMEN AND PELVIS WITH CONTRAST: HISTORY: Diarrhea and vomiting. COMPARISON: A CT angiogram of 04/05/2019. FINDINGS: Calcified granuloma within the lingula. Low-grade atelectatic changes of the lung bases. Numerous calcified granulomas of the spleen. Surgical clips are present in the right upper quadrant. The portal vein is patent with antegrade flow. No dilated loops of large or small bowel. The aortoiliac contour is nonaneurysmal. No hydronephrosi s. There is renal cortical thinning bilaterally. The celiac trunk and superior mesenteric arteries are patent. The appendix is felt to be visualized and is normal. No acute osseous abnormality. IMPRESSION: 1. No acute inflammatory process in the abdomen or pelvis. 2. No evidence of bowel obstruction. 3. Small fat-containing umbilical hernia. 4. Normal appendix. POS: [facility]
[2020-08-08] MEDS ORDERED: Iopamidol-370 76% 500 ML 1 ML ONE (11:27)
== END 2020-08-08 13:04 | disposition home or self-care (01) ==
LOC: ERS 07:16
DX: A04.5 Campylobacter enteritis (principal); E86.0 Dehydration; I10 Essential (primary) hypertension; Z86.73 Personal history of transient ischemic attack (TIA), and cerebral infarction without residual deficits; Z79.899 Other long term (current) drug therapy
CPT/HCPCS: 36415; 74177; 80053; 83690; 85025; 87045; 87046; 87324; 87427; 87449; 96360; 96361; Q9967

== ENCOUNTER 2020-12-25 16:05 | Outpatient (CLI) | payer MEDICARE | END 2020-12-25 16:06 | disposition home or self-care (01) | LOC: BICRAD 16:05 | PROVIDERS: ATTEND Specialist | DX: M25.551 Pain in right hip (principal); M16.11 Unilateral primary osteoarthritis, right hip ==

== ENCOUNTER 2021-04-29 15:24 | Outpatient (CLI) | payer MEDICARE | END 2021-04-29 15:25 | disposition home or self-care (01) | LOC: BICCT 15:24 | PROVIDERS: ATTEND Specialist | DX: R19.02 Left upper quadrant abdominal swelling, mass and lump (principal) | CPT/HCPCS: 74150; 82565 ==

== ENCOUNTER 2021-04-30 15:21 | Outpatient (CLI) | payer MEDICARE | END 2021-04-30 15:22 | disposition home or self-care (01) | LOC: BICMAMMO 15:21 | PROVIDERS: ATTEND Specialist | DX: Z12.31 Encounter for screening mammogram for malignant neoplasm of breast (principal); Z80.3 Family history of malignant neoplasm of breast | CPT/HCPCS: 77063; 77067 ==

== ENCOUNTER 2021-10-18 22:25 | Inpatient (IN) | payer OTHER, MEDICARE ==
[2021-10-18] MEDS ORDERED: Ondansetron PF 4 MG/2 ML Vial ONE (22:58)
[2021-10-18] MEDS ORDERED: Morphine 4 MG/ML VIAL ONE (22:58)
[2021-10-18] MEDS ORDERED: Ondansetron ODT 8 MG TAB ONE (22:58)
[2021-10-19] MEDS ORDERED: HYDROcodone/Acetaminophen 5/325 mg Tablet ONE (00:04)
[2021-10-19] MEDS ORDERED: Morphine 4 MG/ML VIAL ONE (00:04)
[2021-10-19 02:34] LABS: #Eosinphils 0.1 thou/uL (0.0-0.7); #Lymphocytes 1.2 thou/uL (1.20-3.40); #Monocytes 0.6 thou/uL (0.11-0.59); #Neutrophils 8.4 thou/uL (1.40-6.50); %Basophils 0.4 % (0.0-1.0); %Lymphocytes 11.1 % (21.0-51.0); %Monocytes 5.9 % (0.0-10.0); %Neutrophils 81.6 % (42.0-75.0); Hemoglobin 11.3 g/dL (12.0-16.0); Mean Corpuscular HGB CONC 33.5 g/dL (32.0-36.0); Mean Corpuscular Hemoglobin 30.5 pg (27.0-31.0); Mean Corpuscular Volume 90.9 fL (78.0-98.0); Mean Platelet Volume 8.1 fL (7.4-10.4); Platelet Count 191 thou/uL (130-400); RBC Distribution Width 12.5 % (11.5-14.5); White Blood Cell (WBC) Count 10.3 thou/uL (4.8-10.8)
[2021-10-19] MEDS ORDERED: Ondansetron PF 4 MG/2 ML Vial IVP PRN (02:41)
[2021-10-19] MEDS ORDERED: Morphine 4 MG/ML VIAL SLOW IVP PRN (02:41)
[2021-10-19] MEDS ORDERED: hydrALAZINE 20 MG/ML VIAL SLOW IVP PRN (02:41)
[2021-10-19] MEDS ORDERED: Dextrose 50% Abboject 50 ML SYRINGE SLOW IVP PRN (02:41)
[2021-10-19] MEDS ORDERED: Dextrose 5% in Water 1,000 ML IV PRN (02:41)
[2021-10-19 02:48] LABS: Anion Gap 13 mmol/L (10-20); BUN (Urea Nitrogen) 34 mg/dL (9.8-20.1); Carbon Dioxide 18 mmol/L (23-31); Chloride 98 mmol/L (98-107); Potassium 5.3 mmol/L (3.5-5.1); Sodium 124 mmol/L (136-145)
[2021-10-19 02:49] LABS: ALT (SGPT) 13 U/L (8-55); AST (SGOT) 16 U/L (5-34); Albumin 3.6 g/dL (3.4-4.8); Alkaline Phosphatase 42 U/L (40-110); Bilirubin, Total 0.5 mg/dL (0.2-1.2); Calc. Creatinine Clearance 0 mL/min (70-130); Globulin 2.4 g/dL (2.4-3.5); Glucose 129 mg/dL (83-110); Phosphorus 4.2 mg/dL (2.3-4.7)
[2021-10-19] MEDS ORDERED: Sodium Chloride 0.9% 1,000 ML IV SCH (03:15)
[2021-10-19] MEDS: Acetaminophen 500 MG TAB PO SCH ×4 (04:54→19:55)
[2021-10-19 05:13] VITALS: BMI 21.7
[2021-10-19] MEDS ORDERED: Clindamycin/D5W 900 MG in Premix Bag 1 BAG IVPB SCH (07:30)
[2021-10-19] MEDS: Carvedilol 6.25 MG TAB PO SCH ×2 (08:17→19:56)
[2021-10-19] MEDS: Pregabalin 50 MG CAP PO SCH ×2 (08:17→19:57)
[2021-10-19] MEDS: Senokot S 8.6-50 MG TAB PO SCH ×2 (08:17→19:57)
[2021-10-19] MEDS ORDERED: Polyethylene Glycol 3350 17 GM Packet PO SCH (09:00)
[2021-10-19] MEDS ORDERED: Famotidine 20 MG TAB PO SCH ×2 (09:00)
[2021-10-19] MEDS ORDERED: Gabapentin 100 MG CAP PO SCH (09:00)
[2021-10-19 09:24] LABS: SARS-CoV-2 NAA Rapid Test Not Detected (NotDetected)
[2021-10-19] MEDS ORDERED: Fentanyl 100 MCG/2 ML VIAL ONE ×2 (11:44→11:45)
[2021-10-19] MEDS ORDERED: Midazolam HCl 2 mg/2 ml Vial ONE (11:44)
[2021-10-19] MEDS ORDERED: Clindamycin/D5W 900 mg/50 ml Premix Bag ONE (11:59)
[2021-10-19] MEDS ORDERED: Bupivacaine HCl 0.5%/Epinephrine 1:200,000/PF 30 ml Vial ONE (12:42)
[2021-10-19] MEDS ORDERED: Lidocaine 1% PF 5 ML VIAL ONE (12:42)
[2021-10-19] MEDS ORDERED: Dexamethasone 20 MG/5 ML VIAL ONE (12:42)
[2021-10-19] MEDS ORDERED: PHENYLEPHRINE-NS 100 MCG/ML 10 ML SYRINGE ONE (12:42)
[2021-10-19] MEDS ORDERED: Ondansetron PF 4 MG/2 ML Vial ONE (12:42)
[2021-10-19] MEDS ORDERED: PROPOFOL 200 MG/20 ML VIAL ONE (12:42)
[2021-10-19] MEDS ORDERED: Succinylcholine 200 MG/10 ml SYRINGE FS ONE (12:42)
[2021-10-19] MEDS ORDERED: Promethazine HCl 25 MG/ML VIAL IM PRN (14:02)
[2021-10-19] MEDS ORDERED: Meperidine HCl/PF 25 MG/ML VIAL SLOW IVP PRN (14:02)
[2021-10-19] MEDS ORDERED: Promethazine HCl 25 MG/ML VIAL IVPB PRN (14:02)
[2021-10-19] MEDS ORDERED: Ondansetron HCl/PF 4 MG/2 ML Vial IVP PRN (14:02)
[2021-10-19] MEDS ORDERED: Promethazine HCl 25 MG/ML VIAL ONE (14:10)
[2021-10-19 18:17] LABS: Anion Gap 10 mmol/L (10-20); BUN (Urea Nitrogen) 28 mg/dL (9.8-20.1); Calc. Creatinine Clearance 36 mL/min (70-130); Calcium 8.4 mg/dL (7.8-10.44); Carbon Dioxide 20 mmol/L (23-31); Chloride 100 mmol/L (98-107); Glucose 119 mg/dL (83-110); Magnesium 1.8 mg/dL (1.6-2.6); Phosphorus 3.2 mg/dL (2.3-4.7); Potassium 5.5 mmol/L (3.5-5.1); Sodium 124 mmol/L (136-145)
[2021-10-19] MEDS: Sodium Chloride 0.9% 1,000 ML IV SCH (19:41)
[2021-10-19] MEDS: Sodium Chloride 1 GM TAB PO SCH (19:58)
[2021-10-19] MEDS: Clindamycin/D5W 900 MG in Premix Bag 1 BAG IVPB SCH (21:50)
[2021-10-20] MEDS: Acetaminophen 500 MG TAB PO SCH (03:18)
[2021-10-20] MEDS: Clindamycin/D5W 900 MG in Premix Bag 1 BAG IVPB SCH (05:05)
[2021-10-20 05:29] LABS: Anion Gap 10 mmol/L (10-20); BUN (Urea Nitrogen) 26 mg/dL (9.8-20.1); Calc. Creatinine Clearance 36 mL/min (70-130); Calcium 8.5 mg/dL (7.8-10.44); Carbon Dioxide 19 mmol/L (23-31); Chloride 102 mmol/L (98-107); Glucose 147 mg/dL (83-110); Magnesium 1.8 mg/dL (1.6-2.6); Potassium 5.3 mmol/L (3.5-5.1); Sodium 126 mmol/L (136-145)
[2021-10-20] MEDS ORDERED: traMADol HCl 50 MG TAB PO PRN (07:30)
[2021-10-20] MEDS ORDERED: Acetaminophen/Codeine 30-300mg Tablet PO SCH (07:45)
[2021-10-20] MEDS ORDERED: Acetaminophen 500 MG TAB PO SCH (08:00)
[2021-10-20] MEDS: Pregabalin 50 MG CAP PO SCH ×2 (08:33→20:59)
[2021-10-20] MEDS: Polyethylene Glycol 3350 17 GM Packet PO SCH (08:33)
[2021-10-20] MEDS: Carvedilol 6.25 MG TAB PO SCH ×2 (08:33→21:00)
[2021-10-20] MEDS: Senokot S 8.6-50 MG TAB PO SCH ×2 (08:33→22:31)
[2021-10-20] MEDS: Acetaminophen 325 MG TAB PO SCH ×3 (08:34→21:01)
[2021-10-20] MEDS: Sodium Chloride 0.9% 1,000 ML IV SCH ×2 (08:35→23:33)
[2021-10-20] MEDS ORDERED: Promethazine 25 MG TAB PO PRN (08:46)
[2021-10-20] MEDS ORDERED: Diphenoxylate HCl/Atropine Tablet PO PRN ×2 (08:46→09:03)
[2021-10-20] MEDS ORDERED: Furosemide 20 MG TAB PO PRN (08:46)
[2021-10-20] MEDS ORDERED: CeleCOXIB 100 MG CAP PO SCH (09:00)
[2021-10-20] MEDS ORDERED: Non-Formulary Item 1 EACH (Dexlansoprazole [Dexilant] 60 MG Cap.Dr.Bp) PO SCH (09:00)
[2021-10-20] MEDS ORDERED: Non-Formulary Item 1 EACH (Celecoxib [Celecoxib] 200 MG Capsule) PO SCH (09:00)
[2021-10-20] MEDS ORDERED: Non-Formulary Item 1 EACH (Magnesium Oxide [Magnesium] 500 MG Capsule) PO SCH (09:00)
[2021-10-20] MEDS ORDERED: Non-Formulary Item 1 EACH (Vitamin B Complex [B Complex] 1 TABLET Tablet) PO SCH (09:00)
[2021-10-20] MEDS ORDERED: Cetirizine HCl 5 MG/5 ML UDCUP PO PRN (09:12)
[2021-10-20] MEDS ORDERED: Promethazine HCl 12.5 MG in Sodium Chloride 0.9% 50 ML IVPB PRN (09:13)
[2021-10-20] MEDS ORDERED: Loratadine 5 MG/5 ML UDCUP PO PRN (09:22)
[2021-10-20] MEDS: Stress 600 With Zinc 1 TAB PO SCH (09:40)
[2021-10-20] MEDS: Clopidogrel Bisulfate 75 MG TAB PO SCH (09:40)
[2021-10-20] MEDS: Ramipril 5 MG CAP PO SCH ×2 (09:40→22:30)
[2021-10-20] MEDS: Isosorbide Dinitrate 20 MG TAB PO SCH ×2 (09:41→21:00)
[2021-10-20] MEDS: Montelukast Sodium 10 mg Tablet PO SCH (09:41)
[2021-10-20] MEDS: Magnesium Oxide 250 MG TAB PO SCH (09:41)
[2021-10-20] MEDS: Lorazepam 0.5 MG TAB PO SCH ×2 (09:41→20:59)
[2021-10-20] MEDS: Scopolamine 1.5 mg/72 hour Patch TD SCH (09:42)
[2021-10-20] MEDS: Cyclobenzaprine 10 MG TAB PO PRN (10:52)
[2021-10-20] MEDS: Acetaminophen/Codeine 30-300mg Tablet PO SCH ×3 (12:00→22:31)
[2021-10-20 15:03] LABS: #Basophils 0.2 thou/uL (0.0-0.2); #Lymphocytes 0.6 thou/uL (1.20-3.40); #Monocytes 0.8 thou/uL (0.11-0.59); #Neutrophils 10.8 thou/uL (1.40-6.50); %Basophils 1.5 % (0.0-1.0); %Eosinophils 0.1 % (0.0-10.0); %Lymphocytes 4.6 % (21.0-51.0); %Monocytes 6.7 % (0.0-10.0); %Neutrophils 87.1 % (42.0-75.0); Hemoglobin 10.2 g/dL (12.0-16.0); Mean Corpuscular HGB CONC 34.2 g/dL (32.0-36.0); Mean Corpuscular Hemoglobin 31.1 pg (27.0-31.0); Mean Corpuscular Volume 91.2 fL (78.0-98.0); Mean Platelet Volume 8.1 fL (7.4-10.4); Platelet Count 155 thou/uL (130-400); RBC Distribution Width 12.7 % (11.5-14.5); Red Blood Cell (RBC) Count 3.28 mill/uL (4.20-5.40); White Blood Cell (WBC) Count 12.3 thou/uL (4.8-10.8)
[2021-10-20] MEDS: Sodium Chloride 1 GM TAB PO SCH (21:00)
[2021-10-20] MEDS ORDERED: Simvastatin 20 MG TAB PO SCH (21:00)
[2021-10-20] MEDS: Atorvastatin Calcium 10 MG TAB PO SCH (21:01)
[2021-10-20] MEDS: Pentazocine HCl/Naloxone HCl 50/0.5 MG TAB PO SCH (23:32)
[2021-10-21] MEDS: Acetaminophen 325 MG TAB PO SCH ×4 (01:59→21:34)
[2021-10-21] MEDS: Sodium Chloride 0.9% 1,000 ML IV SCH (02:00)
[2021-10-21] MEDS: Acetaminophen/Codeine 30-300mg Tablet PO SCH (03:44)
[2021-10-21 04:54] LABS: Hemoglobin 8.7 g/dL (12.0-16.0); Mean Corpuscular HGB CONC 34.2 g/dL (32.0-36.0); Mean Corpuscular Hemoglobin 31.3 pg (27.0-31.0); Mean Corpuscular Volume 91.4 fL (78.0-98.0); Mean Platelet Volume 8.3 fL (7.4-10.4); Platelet Count 148 thou/uL (130-400); RBC Distribution Width 12.8 % (11.5-14.5); Red Blood Cell (RBC) Count 2.77 mill/uL (4.20-5.40); White Blood Cell (WBC) Count 9.2 thou/uL (4.8-10.8)
[2021-10-21 05:00] LABS: Anion Gap 6 mmol/L (10-20); BUN (Urea Nitrogen) 38 mg/dL (9.8-20.1); Calc. Creatinine Clearance 31 mL/min (70-130); Calcium 7.5 mg/dL (7.8-10.44); Carbon Dioxide 21 mmol/L (23-31); Chloride 107 mmol/L (98-107); Glucose 126 mg/dL (83-110); Phosphorus 2.1 mg/dL (2.3-4.7); Potassium 4.7 mmol/L (3.5-5.1); Sodium 129 mmol/L (136-145)
[2021-10-21 06:21] LABS: Band 21 % (5-11); Lymphocytes 9 % (21-51); MDiff Complete? YES; Monocytes 5 % (0-10); Neutrophil 65 % (42-75)
[2021-10-21] MEDS ORDERED: Sodium Phosphate 30 MMOL in Sodium Chloride 0.9% 250 ML 250 ML IVPB SCH (08:00)
[2021-10-21] MEDS: Pregabalin 50 MG CAP PO SCH ×2 (09:09→21:01)
[2021-10-21] MEDS: Magnesium Oxide 250 MG TAB PO SCH (09:09)
[2021-10-21] MEDS: Stress 600 With Zinc 1 TAB PO SCH (09:10)
[2021-10-21] MEDS: Lorazepam 0.5 MG TAB PO SCH ×2 (09:10→21:04)
[2021-10-21] MEDS: Montelukast Sodium 10 mg Tablet PO SCH (09:11)
[2021-10-21] MEDS: Clopidogrel Bisulfate 75 MG TAB PO SCH (09:11)
[2021-10-21] MEDS: Polyethylene Glycol 3350 17 GM Packet PO SCH (09:12)
[2021-10-21] MEDS: Isosorbide Dinitrate 20 MG TAB PO SCH ×3 (09:12→21:02)
[2021-10-21] MEDS: Senokot S 8.6-50 MG TAB PO SCH ×2 (09:12→21:05)
[2021-10-21] MEDS: Carvedilol 6.25 MG TAB PO SCH ×3 (09:12→21:00)
[2021-10-21] MEDS: Ramipril 5 MG CAP PO SCH ×2 (09:12→09:59)
[2021-10-21] MEDS: Pentazocine HCl/Naloxone HCl 50/0.5 MG TAB PO SCH ×2 (09:57→21:02)
[2021-10-21] MEDS: Cyclobenzaprine 10 MG TAB PO PRN (16:41)
[2021-10-21] MEDS: Ferrous Sulfate 325 MG TAB PO SCH (16:41)
[2021-10-21] MEDS: Sodium Chloride 1 GM TAB PO SCH (20:59)
[2021-10-21] MEDS: Atorvastatin Calcium 10 MG TAB PO SCH (20:59)
[2021-10-21] MEDS ORDERED: Ramipril 5 MG CAP PO SCH (21:00)
[2021-10-21] MEDS: Ascorbic Acid 500 mg Chewable Tablet PO SCH (21:04)
[2021-10-22] MEDS: Acetaminophen 325 MG TAB PO SCH ×3 (01:41→20:16)
[2021-10-22 05:20] LABS: #Eosinphils 0.6 thou/uL (0.0-0.7); #Lymphocytes 1.5 thou/uL (1.20-3.40); #Monocytes 1.2 thou/uL (0.11-0.59); #Neutrophils 9.5 thou/uL (1.40-6.50); %Basophils 0.2 % (0.0-1.0); %Eosinophils 4.4 % (0.0-10.0); %Monocytes 9.2 % (0.0-10.0); %Neutrophils 74.3 % (42.0-75.0); Hemoglobin 9.8 g/dL (12.0-16.0); Mean Corpuscular HGB CONC 32.5 g/dL (32.0-36.0); Mean Corpuscular Hemoglobin 30.4 pg (27.0-31.0); Mean Corpuscular Volume 93.6 fL (78.0-98.0); Mean Platelet Volume 8.1 fL (7.4-10.4); Platelet Count 208 thou/uL (130-400); RBC Distribution Width 13.2 % (11.5-14.5); Red Blood Cell (RBC) Count 3.22 mill/uL (4.20-5.40); White Blood Cell (WBC) Count 12.8 thou/uL (4.8-10.8)
[2021-10-22 06:00] LABS: Anion Gap 14 mmol/L (10-20); BUN (Urea Nitrogen) 35 mg/dL (9.8-20.1); Calc. Creatinine Clearance 33 mL/min (70-130); Calcium 8.4 mg/dL (7.8-10.44); Carbon Dioxide 18 mmol/L (23-31); Chloride 110 mmol/L (98-107); Glucose 112 mg/dL (83-110); Magnesium 2.2 mg/dL (1.6-2.6); Phosphorus 3.4 mg/dL (2.3-4.7); Potassium 4.8 mmol/L (3.5-5.1); Sodium 137 mmol/L (136-145)
[2021-10-22] MEDS: Carvedilol 6.25 MG TAB PO SCH ×2 (08:20→20:16)
[2021-10-22] MEDS: Aspirin Chewable 81 MG TAB PO SCH (08:20)
[2021-10-22] MEDS: Pregabalin 50 MG CAP PO SCH ×2 (08:20→20:17)
[2021-10-22] MEDS: Montelukast Sodium 10 mg Tablet PO SCH (08:20)
[2021-10-22] MEDS: Ramipril 5 MG CAP PO SCH (08:21)
[2021-10-22] MEDS: Magnesium Oxide 250 MG TAB PO SCH (08:22)
[2021-10-22] MEDS: Ferrous Sulfate 325 MG TAB PO SCH ×2 (08:22→18:20)
[2021-10-22] MEDS: Senokot S 8.6-50 MG TAB PO SCH ×2 (08:22→20:17)
[2021-10-22] MEDS: Clopidogrel Bisulfate 75 MG TAB PO SCH (08:22)
[2021-10-22] MEDS: Isosorbide Dinitrate 20 MG TAB PO SCH ×2 (08:23→20:17)
[2021-10-22] MEDS: Ascorbic Acid 500 mg Chewable Tablet PO SCH ×2 (08:23→20:17)
[2021-10-22] MEDS: Pentazocine HCl/Naloxone HCl 50/0.5 MG TAB PO SCH ×2 (08:23→20:26)
[2021-10-22] MEDS: Lorazepam 0.5 MG TAB PO SCH ×2 (08:23→20:21)
[2021-10-22] MEDS: Polyethylene Glycol 3350 17 GM Packet PO SCH (17:25)
[2021-10-22] MEDS: Stress 600 With Zinc 1 TAB PO SCH (17:25)
[2021-10-22] MEDS: Atorvastatin Calcium 10 MG TAB PO SCH (20:16)
[2021-10-22] MEDS: Cyclobenzaprine 10 MG TAB PO PRN (20:16)
[2021-10-22] MEDS: Sodium Chloride 1 GM TAB PO SCH (20:22)
[2021-10-23] MEDS: Acetaminophen 325 MG TAB PO SCH ×4 (02:11→21:08)
[2021-10-23] MEDS: Lorazepam 0.5 MG TAB PO SCH (10:15)
[2021-10-23] MEDS: Scopolamine 1.5 mg/72 hour Patch TD SCH (10:16)
[2021-10-23] MEDS: Aspirin Chewable 81 MG TAB PO SCH (10:17)
[2021-10-23] MEDS: Clopidogrel Bisulfate 75 MG TAB PO SCH (10:17)
[2021-10-23] MEDS: Ferrous Sulfate 325 MG TAB PO SCH ×2 (10:17→17:40)
[2021-10-23] MEDS: Magnesium Oxide 250 MG TAB PO SCH (10:17)
[2021-10-23] MEDS: Polyethylene Glycol 3350 17 GM Packet PO SCH (10:17)
[2021-10-23] MEDS: Stress 600 With Zinc 1 TAB PO SCH (10:17)
[2021-10-23] MEDS: Ramipril 5 MG CAP PO SCH (10:18)
[2021-10-23] MEDS: Montelukast Sodium 10 mg Tablet PO SCH (10:20)
[2021-10-23] MEDS: Ascorbic Acid 500 mg Chewable Tablet PO SCH ×2 (10:20→21:06)
[2021-10-23] MEDS: Carvedilol 6.25 MG TAB PO SCH ×2 (10:20→21:06)
[2021-10-23] MEDS: Senokot S 8.6-50 MG TAB PO SCH ×2 (10:20→21:00)
[2021-10-23] MEDS: Isosorbide Dinitrate 20 MG TAB PO SCH ×2 (10:21→21:05)
[2021-10-23] MEDS: Pregabalin 50 MG CAP PO SCH ×2 (10:21→21:06)
[2021-10-23] MEDS: Cyclobenzaprine 10 MG TAB PO PRN ×2 (10:48→17:39)
[2021-10-23] MEDS: Pentazocine HCl/Naloxone HCl 50/0.5 MG TAB PO SCH ×2 (11:04→21:01)
[2021-10-23] MEDS: Lorazepam 1 MG TAB PO SCH (21:05)
[2021-10-23] MEDS: Sodium Chloride 1 GM TAB PO SCH (21:06)
[2021-10-23] MEDS: Atorvastatin Calcium 10 MG TAB PO SCH (21:06)
[2021-10-23] MEDS ORDERED: Calcium Carbonate 500 MG ChewTAB PO PRN (22:13)
[2021-10-24] MEDS: Acetaminophen 325 MG TAB PO SCH ×4 (02:34→20:23)
[2021-10-24] MEDS: Cyclobenzaprine 10 MG TAB PO PRN ×3 (03:12→18:39)
[2021-10-24 06:52] LABS: Chloride 108 mmol/L (98-107); Potassium 4.8 mmol/L (3.5-5.1); Sodium 135 mmol/L (136-145)
[2021-10-24 06:53] LABS: Calcium 8.6 mg/dL (7.8-10.44); Glucose 121 mg/dL (83-110)
[2021-10-24 06:55] LABS: Anion Gap 12 mmol/L (10-20); Carbon Dioxide 20 mmol/L (23-31)
[2021-10-24 06:56] LABS: Phosphorus 3.7 mg/dL (2.3-4.7)
[2021-10-24 06:57] LABS: BUN (Urea Nitrogen) 30 mg/dL (9.8-20.1); Calc. Creatinine Clearance 38 mL/min (70-130)
[2021-10-24 06:59] LABS: Magnesium 1.9 mg/dL (1.6-2.6)
[2021-10-24] MEDS: Polyethylene Glycol 3350 17 GM Packet PO SCH (08:31)
[2021-10-24] MEDS: Magnesium Oxide 250 MG TAB PO SCH (08:31)
[2021-10-24] MEDS: Ferrous Sulfate 325 MG TAB PO SCH ×2 (08:31→18:39)
[2021-10-24] MEDS: Ramipril 5 MG CAP PO SCH (08:31)
[2021-10-24] MEDS: Clopidogrel Bisulfate 75 MG TAB PO SCH (08:32)
[2021-10-24] MEDS: Lorazepam 1 MG TAB PO SCH ×2 (08:32→21:33)
[2021-10-24] MEDS: Ascorbic Acid 500 mg Chewable Tablet PO SCH ×2 (08:33→21:32)
[2021-10-24] MEDS: Stress 600 With Zinc 1 TAB PO SCH (08:33)
[2021-10-24] MEDS: Senokot S 8.6-50 MG TAB PO SCH ×2 (08:33→21:31)
[2021-10-24] MEDS: Carvedilol 6.25 MG TAB PO SCH ×2 (08:33→21:32)
[2021-10-24] MEDS: Aspirin Chewable 81 MG TAB PO SCH (08:33)
[2021-10-24] MEDS: Isosorbide Dinitrate 20 MG TAB PO SCH ×2 (08:34→21:32)
[2021-10-24] MEDS: Pregabalin 50 MG CAP PO SCH ×2 (08:34→21:33)
[2021-10-24] MEDS: Montelukast Sodium 10 mg Tablet PO SCH (08:34)
[2021-10-24] MEDS: Pentazocine HCl/Naloxone HCl 50/0.5 MG TAB PO SCH ×2 (09:05→21:43)
[2021-10-24] MEDS: Lidocaine 5% Patch TD SCH (09:32)
[2021-10-24] MEDS: HYDROcodone/Acetaminophen 5/325 mg Tablet PO PRN (20:16)
[2021-10-24] MEDS: Sodium Chloride 1 GM TAB PO SCH (21:32)
[2021-10-24] MEDS: Atorvastatin Calcium 10 MG TAB PO SCH (21:32)
[2021-10-24] MEDS: Transdermal Patch Removal TOP SCH (21:33)
[2021-10-25] MEDS: HYDROcodone/Acetaminophen 5/325 mg Tablet PO PRN ×4 (00:10→21:16)
[2021-10-25] MEDS: Cyclobenzaprine 10 MG TAB PO PRN (02:54)
[2021-10-25] MEDS: Acetaminophen 325 MG TAB PO SCH ×4 (02:54→21:23)
[2021-10-25] MEDS: Ascorbic Acid 500 mg Chewable Tablet PO SCH ×2 (08:27→21:20)
[2021-10-25] MEDS: Stress 600 With Zinc 1 TAB PO SCH (08:27)
[2021-10-25] MEDS: Magnesium Oxide 250 MG TAB PO SCH (08:27)
[2021-10-25] MEDS: Isosorbide Dinitrate 20 MG TAB PO SCH ×2 (08:28→21:21)
[2021-10-25] MEDS: Aspirin Chewable 81 MG TAB PO SCH (08:28)
[2021-10-25] MEDS: Lorazepam 1 MG TAB PO SCH ×2 (08:28→21:21)
[2021-10-25] MEDS: Ramipril 5 MG CAP PO SCH (08:28)
[2021-10-25] MEDS: Ferrous Sulfate 325 MG TAB PO SCH ×2 (08:29→16:39)
[2021-10-25] MEDS: Pregabalin 50 MG CAP PO SCH ×2 (08:30→21:21)
[2021-10-25] MEDS: Carvedilol 6.25 MG TAB PO SCH ×2 (08:30→21:16)
[2021-10-25] MEDS: Montelukast Sodium 10 mg Tablet PO SCH (08:30)
[2021-10-25] MEDS: Clopidogrel Bisulfate 75 MG TAB PO SCH (08:30)
[2021-10-25] MEDS: Lidocaine 5% Patch TD SCH (08:31)
[2021-10-25] MEDS: Pentazocine HCl/Naloxone HCl 50/0.5 MG TAB PO SCH ×2 (08:31→21:13)
[2021-10-25] MEDS: Polyethylene Glycol 3350 17 GM Packet PO SCH (08:31)
[2021-10-25] MEDS: Senokot S 8.6-50 MG TAB PO SCH ×2 (08:32→21:21)
[2021-10-25] MEDS ORDERED: Magnesium Citrate 300 ML BOT PO SCH (10:15)
[2021-10-25] MEDS: Sodium Chloride 1 GM TAB PO SCH (21:16)
[2021-10-25] MEDS: Atorvastatin Calcium 10 MG TAB PO SCH (21:21)
[2021-10-25] MEDS: Transdermal Patch Removal TOP SCH (21:23)
[2021-10-26] MEDS: Acetaminophen 325 MG TAB PO SCH ×2 (05:03→08:16)
[2021-10-26] MEDS: Stress 600 With Zinc 1 TAB PO SCH (08:16)
[2021-10-26] MEDS: Aspirin Chewable 81 MG TAB PO SCH (08:16)
[2021-10-26] MEDS: Ferrous Sulfate 325 MG TAB PO SCH (08:16)
[2021-10-26] MEDS: Lidocaine 5% Patch TD SCH (08:16)
[2021-10-26] MEDS: Polyethylene Glycol 3350 17 GM Packet PO SCH (08:16)
[2021-10-26] MEDS: Ramipril 5 MG CAP PO SCH (08:17)
[2021-10-26] MEDS: Lorazepam 1 MG TAB PO SCH (08:18)
[2021-10-26] MEDS: Magnesium Oxide 250 MG TAB PO SCH (08:18)
[2021-10-26] MEDS: Senokot S 8.6-50 MG TAB PO SCH (08:18)
[2021-10-26] MEDS: Isosorbide Dinitrate 20 MG TAB PO SCH (08:19)
[2021-10-26] MEDS: Ascorbic Acid 500 mg Chewable Tablet PO SCH (08:19)
[2021-10-26] MEDS: Carvedilol 6.25 MG TAB PO SCH (08:19)
[2021-10-26] MEDS: Clopidogrel Bisulfate 75 MG TAB PO SCH (08:19)
[2021-10-26] MEDS: Pregabalin 50 MG CAP PO SCH (08:20)
[2021-10-26] MEDS: Montelukast Sodium 10 mg Tablet PO SCH (08:20)
[2021-10-26] MEDS: Pentazocine HCl/Naloxone HCl 50/0.5 MG TAB PO SCH (11:43)
[2021-10-26] MEDS: HYDROcodone/Acetaminophen 5/325 mg Tablet PO PRN (11:46)
[2021-10-26 11:47] VITALS: BP 111/57; TEMP 97.9
== END 2021-10-26 13:00 | DRG 516 ==
LOC: ERS 22:25 → SURG B 10-19 02:44
PROVIDERS: ADMIT Specialist; ATTEND Specialist
PROC: 0QSD04Z Reposition Right Patella with Internal Fixation Device, Open Approach (ICD-10-PCS; principal; 2021-10-19)
DX: S82.041A Displaced comminuted fracture of right patella, initial encounter for closed fracture (principal); E87.1 Hypo-osmolality and hyponatremia; I13.0 Hypertensive heart and chronic kidney disease with heart failure and stage 1 through stage 4 chronic kidney disease, or unspecified chronic kidney disease; I50.32 Chronic diastolic (congestive) heart failure; N17.9 Acute kidney failure, unspecified; E87.0 Hyperosmolality and hypernatremia; E87.5 Hyperkalemia; W01.0XXA Fall on same level from slipping, tripping and stumbling without subsequent striking against object, initial encounter; M19.90 Unspecified osteoarthritis, unspecified site; M35.3 Polymyalgia rheumatica; F41.9 Anxiety disorder, unspecified; Z20.822 Contact with and (suspected) exposure to COVID-19; E83.39 Other disorders of phosphorus metabolism; N18.30 Chronic kidney disease, stage 3 unspecified; D64.9 Anemia, unspecified; Z95.0 Presence of cardiac pacemaker; Z86.73 Personal history of transient ischemic attack (TIA), and cerebral infarction without residual deficits; Y92.009 Unspecified place in unspecified non-institutional (private) residence as the place of occurrence of the external cause; Z79.82 Long term (current) use of aspirin; Z79.02 Long term (current) use of antithrombotics/antiplatelets; Z90.49 Acquired absence of other specified parts of digestive tract; Z90.710 Acquired absence of both cervix and uterus; Z79.899 Other long term (current) drug therapy; Z88.6 Allergy status to analgesic agent; Z88.1 Allergy status to other antibiotic agents; Z88.8 Allergy status to other drugs, medicaments and biological substances; Z88.0 Allergy status to penicillin
CPT/HCPCS: 36415; 36416; 70450; 71045; 72170; 76000; 80048; 80053; 83735; 84100; 85007; 85025; 85027; 96374; 96375; 96376; C1713; C1769; C1776; G0390; J1100; J2250; J2270; J2405; J2550; J2704; J3010; J3490; J7050; Q0162; U0002

== ENCOUNTER 2021-12-07 14:30 | Inpatient (IN) | payer MEDICARE ==
[2021-12-07] MEDS ORDERED: Vancomycin 1 GM/200 ML BAG ONE (16:31)
[2021-12-07] MEDS ORDERED: Cefepime 2 GM VIAL ONE (16:31)
[2021-12-07 16:35] LABS: #Eosinphils 0.8 thou/uL (0.0-0.7); #Lymphocytes 2.5 thou/uL (1.20-3.40); #Monocytes 0.8 thou/uL (0.11-0.59); #Neutrophils 4.7 thou/uL (1.40-6.50); %Basophils 0.2 % (0.0-1.0); %Eosinophils 8.8 % (0.0-10.0); %Lymphocytes 28.4 % (21.0-51.0); %Monocytes 8.7 % (0.0-10.0); %Neutrophils 53.9 % (42.0-75.0); Hemoglobin 11.5 g/dL (12.0-16.0); Mean Corpuscular HGB CONC 32.7 g/dL (32.0-36.0); Mean Corpuscular Hemoglobin 30.3 pg (27.0-31.0); Mean Corpuscular Volume 92.6 fL (78.0-98.0); Mean Platelet Volume 8.4 fL (7.4-10.4); Platelet Count 228 thou/uL (130-400); RBC Distribution Width 14.2 % (11.5-14.5); Red Blood Cell (RBC) Count 3.78 mill/uL (4.20-5.40); White Blood Cell (WBC) Count 8.6 thou/uL (4.8-10.8)
[2021-12-07] MEDS ORDERED: Cefepime 1 GM VIAL ONE (16:41)
[2021-12-07] MEDS ORDERED: Ondansetron PF 4 MG/2 ML Vial SLOW IVP PRN (16:55)
[2021-12-07] MEDS ORDERED: HYDROcodone/Acetaminophen 5/325 mg Tablet PO PRN (16:55)
[2021-12-07 16:56] LABS: ALT (SGPT) Less than 7 U/L (8-55); AST (SGOT) 10 U/L (5-34); Albumin 3.6 g/dL (3.4-4.8); Alkaline Phosphatase 54 U/L (40-110); Anion Gap 12 mmol/L (10-20); BUN (Urea Nitrogen) 37 mg/dL (9.8-20.1); Bilirubin, Total 0.2 mg/dL (0.2-1.2); Calc. Creatinine Clearance 0 mL/min (70-130); Calcium 9.3 mg/dL (7.8-10.44); Carbon Dioxide 25 mmol/L (23-31); Chloride 107 mmol/L (98-107); Globulin 2.2 g/dL (2.4-3.5); Glucose 115 mg/dL (83-110); Potassium 5.1 mmol/L (3.5-5.1); Protein, Total 5.8 g/dL (5.8-8.1); Sodium 139 mmol/L (136-145)
[2021-12-07] MEDS ORDERED: TETANUS AND DIPHTHERIA TOX/PF 0.5 ML DISP.SYRIN IM SCH (17:00)
[2021-12-07] MEDS ORDERED: Communication Order-Pharmacy FS SCH (17:00)
[2021-12-07] MEDS ORDERED: Acetaminophen 500 MG TAB ONE (17:43)
[2021-12-07] MEDS ORDERED: Fentanyl 100 MCG/2 ML VIAL ONE (17:43)
[2021-12-07] MEDS ORDERED: Lorazepam 2 MG/ML VIAL ONE (18:26)
[2021-12-07 19:54] VITALS: BMI 28.7
[2021-12-07 20:22] LABS: SARS-CoV-2 NAA Rapid Test Not Detected (NotDetected)
[2021-12-07] MEDS ORDERED: Boostrix 0.5 ML (Tdap) VIAL IM ONE (21:00)
[2021-12-08] MEDS: Cefepime 1 GM in Sodium Chloride 0.9% 100 ML IVPB SCH ×2 (04:59→17:08)
[2021-12-08] MEDS ORDERED: Lorazepam 0.5 MG TAB PO PRN (07:56)
[2021-12-08] MEDS: Lorazepam 2 MG/ML VIAL SLOW IVP PRN (09:13)
[2021-12-08] MEDS: Morphine 4 MG/ML VIAL SLOW IVP PRN (09:13)
[2021-12-08] MEDS ORDERED: Dexmedetomidine 200 MCG/2 ML VIAL ONE (15:08)
[2021-12-08] MEDS ORDERED: Fentanyl 100 MCG/2 ML VIAL ONE ×2 (15:08→15:46)
[2021-12-08] MEDS ORDERED: Bupivacaine PF 0.5% 30 ML VIAL ONE ×2 (15:11→15:48)
[2021-12-08] MEDS ORDERED: Xylocaine 1% w/ Epi 1:100K 10 ML VIAL ONE ×2 (15:11→15:12)
[2021-12-08] MEDS ORDERED: Neomycin-Polymyxin 1 ML AMP ONE (15:12)
[2021-12-08] MEDS ORDERED: PROPOFOL 200 MG/20 ML VIAL ONE (15:48)
[2021-12-08] MEDS ORDERED: Lidocaine 1% PF 5 ML VIAL ONE (15:48)
[2021-12-08] MEDS ORDERED: Ondansetron PF 4 MG/2 ML Vial ONE (15:48)
[2021-12-08] MEDS ORDERED: Famotidine/PF 20 mg/2ml Vial ONE (16:07)
[2021-12-08] MEDS ORDERED: Vancomycin 1 GM in Premix Bag 1 BAG IVPB SCH (18:00)
[2021-12-08 18:05] LABS: Vancomycin, Random 10.8 ug/mL (See Comment)
[2021-12-08] MEDS ORDERED: Vancomycin HCl 750 MG in Sodium Chloride 0.9% 250 ML 250 ML IVPB SCH (21:00)
[2021-12-08] MEDS: HYDROcodone/Acetaminophen 5/325 mg Tablet PO PRN (21:11)
[2021-12-09] MEDS: Cefepime 1 GM in Sodium Chloride 0.9% 100 ML IVPB SCH ×2 (04:15→16:08)
[2021-12-09] MEDS: HYDROcodone/Acetaminophen 5/325 mg Tablet PO PRN ×4 (04:55→21:00)
[2021-12-09] MEDS ORDERED: Diphenoxylate HCl/Atropine Tablet PO PRN (12:42)
[2021-12-09] MEDS ORDERED: Promethazine 25 MG TAB PO PRN (12:42)
[2021-12-09] MEDS ORDERED: Furosemide 20 MG TAB PO PRN (12:42)
[2021-12-09] MEDS ORDERED: Hyoscyamine Sulfate SL 0.125 mg Tablet SL PRN (12:42)
[2021-12-09] MEDS: Lorazepam 2 MG/ML VIAL SLOW IVP PRN (13:21)
[2021-12-09] MEDS: Acetaminophen 325 MG TAB PO SCH (18:10)
[2021-12-09 20:45] LABS: Vancomycin, Random 12.6 ug/mL (See Comment)
[2021-12-09] MEDS: Carvedilol 3.125 MG TAB PO SCH (20:59)
[2021-12-09] MEDS: Ascorbic Acid 500 mg Chewable Tablet PO SCH (20:59)
[2021-12-09] MEDS: Ramipril 5 MG CAP PO SCH (20:59)
[2021-12-09] MEDS: Simvastatin 10 MG TAB PO SCH (20:59)
[2021-12-09] MEDS: Isosorbide Dinitrate 5 MG TAB PO SCH (21:00)
[2021-12-09] MEDS: Pregabalin 50 MG CAP PO SCH (21:00)
[2021-12-09] MEDS: Lorazepam 0.5 MG TAB PO SCH (21:01)
[2021-12-09] MEDS ORDERED: Vancomycin HCl 500 MG in Sodium Chloride 0.9% 100 ML IVPB SCH (22:00)
[2021-12-10] MEDS: Acetaminophen 325 MG TAB PO SCH ×4 (00:01→17:09)
[2021-12-10] MEDS: Cefepime 1 GM in Sodium Chloride 0.9% 100 ML IVPB SCH ×2 (04:33→15:38)
[2021-12-10] MEDS: Ascorbic Acid 500 mg Chewable Tablet PO SCH ×2 (08:45→20:21)
[2021-12-10] MEDS: Ramipril 5 MG CAP PO SCH ×2 (08:45→20:22)
[2021-12-10] MEDS: Isosorbide Dinitrate 5 MG TAB PO SCH ×2 (08:45→20:21)
[2021-12-10] MEDS: Montelukast Sodium 10 mg Tablet PO SCH (08:45)
[2021-12-10] MEDS: Polyethylene Glycol 3350 17 GM Packet PO SCH (08:45)
[2021-12-10] MEDS: Stress 600 With Zinc 1 TAB PO SCH (08:45)
[2021-12-10] MEDS: Lorazepam 0.5 MG TAB PO SCH ×2 (08:45→20:22)
[2021-12-10] MEDS: Aspirin Chewable 81 MG TAB PO SCH (08:46)
[2021-12-10] MEDS: Allopurinol 100 MG TAB PO SCH (08:46)
[2021-12-10] MEDS: CeleCOXIB 100 MG CAP PO SCH (08:46)
[2021-12-10] MEDS: Pregabalin 50 MG CAP PO SCH ×2 (08:46→20:21)
[2021-12-10] MEDS: Carvedilol 3.125 MG TAB PO SCH ×2 (08:46→20:21)
[2021-12-10] MEDS: HYDROcodone/Acetaminophen 5/325 mg Tablet PO PRN ×2 (08:47→20:22)
[2021-12-10] MEDS ORDERED: Magnesium Citrate 300 ML BOT PO SCH (12:00)
[2021-12-10] MEDS: Simvastatin 10 MG TAB PO SCH (20:21)
[2021-12-10 21:53] LABS: Vancomycin, Random 13.9 ug/mL (See Comment)
[2021-12-10] MEDS ORDERED: Vancomycin HCl 500 MG in Sodium Chloride 0.9% 100 ML IVPB SCH (23:15)
[2021-12-11] MEDS: Acetaminophen 325 MG TAB PO SCH ×5 (00:12→23:34)
[2021-12-11] MEDS: Cefepime 1 GM in Sodium Chloride 0.9% 100 ML IVPB SCH ×2 (03:51→16:05)
[2021-12-11] MEDS: Ramipril 5 MG CAP PO SCH ×2 (09:43→21:13)
[2021-12-11] MEDS: Lorazepam 0.5 MG TAB PO SCH ×2 (09:43→21:13)
[2021-12-11] MEDS: Montelukast Sodium 10 mg Tablet PO SCH (09:43)
[2021-12-11] MEDS: Aspirin Chewable 81 MG TAB PO SCH ×2 (09:44→21:13)
[2021-12-11] MEDS: Carvedilol 3.125 MG TAB PO SCH ×2 (09:44→21:12)
[2021-12-11] MEDS: CeleCOXIB 100 MG CAP PO SCH (09:44)
[2021-12-11] MEDS: Ascorbic Acid 500 mg Chewable Tablet PO SCH ×2 (09:44→21:13)
[2021-12-11] MEDS: Isosorbide Dinitrate 5 MG TAB PO SCH ×2 (09:44→21:12)
[2021-12-11] MEDS: Allopurinol 100 MG TAB PO SCH (09:44)
[2021-12-11] MEDS: Stress 600 With Zinc 1 TAB PO SCH (09:44)
[2021-12-11] MEDS: Pregabalin 50 MG CAP PO SCH ×2 (09:45→21:12)
[2021-12-11] MEDS: Polyethylene Glycol 3350 17 GM Packet PO SCH (09:45)
[2021-12-11] MEDS: HYDROcodone/Acetaminophen 5/325 mg Tablet PO PRN ×2 (10:54→21:12)
[2021-12-11] MEDS: Simvastatin 10 MG TAB PO SCH (21:13)
[2021-12-11 22:38] LABS: Vancomycin, Random 14.9 ug/mL (See Comment)
[2021-12-12] MEDS: Vancomycin HCl 500 MG in Sodium Chloride 0.9% 100 ML IVPB SCH (02:03)
[2021-12-12] MEDS: Cefepime 1 GM in Sodium Chloride 0.9% 100 ML IVPB SCH ×2 (04:22→15:38)
[2021-12-12] MEDS: HYDROcodone/Acetaminophen 5/325 mg Tablet PO PRN ×4 (04:25→22:14)
[2021-12-12] MEDS: Acetaminophen 325 MG TAB PO SCH ×3 (06:11→17:16)
[2021-12-12] MEDS: Polyethylene Glycol 3350 17 GM Packet PO SCH (09:23)
[2021-12-12] MEDS: Isosorbide Dinitrate 5 MG TAB PO SCH ×2 (09:24→20:18)
[2021-12-12] MEDS: Allopurinol 100 MG TAB PO SCH (09:24)
[2021-12-12] MEDS: Pregabalin 50 MG CAP PO SCH ×2 (09:24→20:17)
[2021-12-12] MEDS: Stress 600 With Zinc 1 TAB PO SCH (09:24)
[2021-12-12] MEDS: Carvedilol 3.125 MG TAB PO SCH ×2 (09:25→20:18)
[2021-12-12] MEDS: Ascorbic Acid 500 mg Chewable Tablet PO SCH ×2 (09:25→20:18)
[2021-12-12] MEDS: Ramipril 5 MG CAP PO SCH ×2 (09:25→20:18)
[2021-12-12] MEDS: Montelukast Sodium 10 mg Tablet PO SCH (09:25)
[2021-12-12] MEDS: CeleCOXIB 100 MG CAP PO SCH (09:25)
[2021-12-12] MEDS: Aspirin Chewable 81 MG TAB PO SCH ×2 (09:26→20:18)
[2021-12-12] MEDS: Lorazepam 0.5 MG TAB PO SCH ×2 (09:26→20:18)
[2021-12-12] MEDS: Cyclobenzaprine 10 MG TAB PO PRN (19:42)
[2021-12-12] MEDS: Simvastatin 10 MG TAB PO SCH (20:18)
[2021-12-13] MEDS: Acetaminophen 325 MG TAB PO SCH ×5 (00:03→23:43)
[2021-12-13] MEDS: Vancomycin HCl 500 MG in Sodium Chloride 0.9% 100 ML IVPB SCH (02:26)
[2021-12-13] MEDS: Cefepime 1 GM in Sodium Chloride 0.9% 100 ML IVPB SCH ×2 (04:05→15:44)
[2021-12-13] MEDS: Polyethylene Glycol 3350 17 GM Packet PO SCH (09:20)
[2021-12-13] MEDS: Isosorbide Dinitrate 5 MG TAB PO SCH ×2 (09:20→20:21)
[2021-12-13] MEDS: HYDROcodone/Acetaminophen 5/325 mg Tablet PO PRN ×2 (09:20→20:22)
[2021-12-13] MEDS: Montelukast Sodium 10 mg Tablet PO SCH (09:21)
[2021-12-13] MEDS: CeleCOXIB 100 MG CAP PO SCH (09:21)
[2021-12-13] MEDS: Ascorbic Acid 500 mg Chewable Tablet PO SCH ×2 (09:21→20:21)
[2021-12-13] MEDS: Lorazepam 0.5 MG TAB PO SCH ×2 (09:21→20:21)
[2021-12-13] MEDS: Aspirin Chewable 81 MG TAB PO SCH ×2 (09:21→20:21)
[2021-12-13] MEDS: Allopurinol 100 MG TAB PO SCH (09:21)
[2021-12-13] MEDS: Ramipril 5 MG CAP PO SCH ×2 (09:21→20:21)
[2021-12-13] MEDS: Carvedilol 3.125 MG TAB PO SCH ×2 (09:21→20:21)
[2021-12-13] MEDS: Stress 600 With Zinc 1 TAB PO SCH (09:21)
[2021-12-13] MEDS: Pregabalin 50 MG CAP PO SCH ×2 (09:22→20:21)
[2021-12-13] MEDS: Cyclobenzaprine 10 MG TAB PO PRN (20:22)
[2021-12-13] MEDS: Simvastatin 10 MG TAB PO SCH (20:22)
[2021-12-14 00:48] LABS: Vancomycin, Trough 27.4 ug/mL
[2021-12-14] MEDS ORDERED: VANCOMYCIN HCL IVPB SCH (01:00)
[2021-12-14] MEDS ORDERED: SODIUM CHLORIDE 0.9% IVPB SCH (01:00)
[2021-12-14] MEDS: Cefepime 1 GM in Sodium Chloride 0.9% 100 ML IVPB SCH ×2 (04:05→14:58)
[2021-12-14] MEDS: Acetaminophen 325 MG TAB PO SCH ×4 (05:20→23:36)
[2021-12-14 08:27] LABS: Chloride 109 mmol/L (98-107); Potassium 5.4 mmol/L (3.5-5.1); Sodium 135 mmol/L (136-145)
[2021-12-14 08:28] LABS: Calcium 8.6 mg/dL (7.8-10.44); Glucose 91 mg/dL (83-110)
[2021-12-14 08:30] LABS: Anion Gap 9 mmol/L (10-20); Carbon Dioxide 22 mmol/L (23-31)
[2021-12-14 08:32] LABS: Calc. Creatinine Clearance 38 mL/min (70-130)
[2021-12-14 08:33] LABS: BUN (Urea Nitrogen) 32 mg/dL (9.8-20.1)
[2021-12-14] MEDS: Pregabalin 50 MG CAP PO SCH ×2 (09:29→21:51)
[2021-12-14] MEDS: CeleCOXIB 100 MG CAP PO SCH (09:30)
[2021-12-14] MEDS: Ramipril 5 MG CAP PO SCH ×2 (09:31→21:50)
[2021-12-14] MEDS: Carvedilol 3.125 MG TAB PO SCH ×2 (09:31→21:51)
[2021-12-14] MEDS: Lorazepam 0.5 MG TAB PO SCH ×2 (09:31→21:51)
[2021-12-14] MEDS: Stress 600 With Zinc 1 TAB PO SCH (09:32)
[2021-12-14] MEDS: Aspirin Chewable 81 MG TAB PO SCH ×2 (09:32→21:50)
[2021-12-14] MEDS: Ascorbic Acid 500 mg Chewable Tablet PO SCH ×2 (09:32→21:51)
[2021-12-14] MEDS: Isosorbide Dinitrate 5 MG TAB PO SCH ×2 (09:32→21:51)
[2021-12-14] MEDS: Polyethylene Glycol 3350 17 GM Packet PO SCH (09:32)
[2021-12-14] MEDS: Allopurinol 100 MG TAB PO SCH (09:32)
[2021-12-14] MEDS: Montelukast Sodium 10 mg Tablet PO SCH (09:32)
[2021-12-14] MEDS: HYDROcodone/Acetaminophen 5/325 mg Tablet PO PRN ×2 (09:40→19:23)
[2021-12-14] MEDS: Cyclobenzaprine 10 MG TAB PO PRN ×2 (14:58→21:51)
[2021-12-14 15:35] LABS: SARS-CoV-2 PCR by NAA Not Detected (NotDetected)
[2021-12-14] MEDS: Simvastatin 10 MG TAB PO SCH (21:51)
[2021-12-14] MEDS: Docusate 100 MG CAP PO PRN (21:56)
[2021-12-14 23:39] LABS: Vancomycin, Random 15.6 ug/mL (See Comment)
[2021-12-15] MEDS: HYDROcodone/Acetaminophen 5/325 mg Tablet PO PRN ×4 (01:32→21:49)
[2021-12-15] MEDS: Morphine 4 MG/ML VIAL SLOW IVP PRN (04:16)
[2021-12-15] MEDS: Cefepime 1 GM in Sodium Chloride 0.9% 100 ML IVPB SCH ×2 (04:16→16:52)
[2021-12-15] MEDS: Acetaminophen 325 MG TAB PO SCH ×3 (06:36→16:51)
[2021-12-15] MEDS ORDERED: Vancomycin HCl 500 MG in Sodium Chloride 0.9% 100 ML IVPB SCH (09:00)
[2021-12-15] MEDS: Ramipril 5 MG CAP PO SCH ×2 (09:11→21:45)
[2021-12-15] MEDS: CeleCOXIB 100 MG CAP PO SCH (09:12)
[2021-12-15] MEDS: Ascorbic Acid 500 mg Chewable Tablet PO SCH ×2 (09:12→21:45)
[2021-12-15] MEDS: Montelukast Sodium 10 mg Tablet PO SCH (09:12)
[2021-12-15] MEDS: Allopurinol 100 MG TAB PO SCH (09:13)
[2021-12-15] MEDS: Cyclobenzaprine 10 MG TAB PO PRN (09:13)
[2021-12-15] MEDS: Lorazepam 0.5 MG TAB PO SCH ×2 (09:13→21:49)
[2021-12-15] MEDS: Aspirin Chewable 81 MG TAB PO SCH ×2 (09:13→21:50)
[2021-12-15] MEDS: Carvedilol 3.125 MG TAB PO SCH ×2 (09:14→21:49)
[2021-12-15] MEDS: Polyethylene Glycol 3350 17 GM Packet PO SCH (09:16)
[2021-12-15] MEDS: Pregabalin 50 MG CAP PO SCH ×2 (09:17→21:45)
[2021-12-15] MEDS: Isosorbide Dinitrate 5 MG TAB PO SCH ×2 (09:21→21:50)
[2021-12-15] MEDS: Stress 600 With Zinc 1 TAB PO SCH (09:21)
[2021-12-15] MEDS: Simvastatin 10 MG TAB PO SCH (21:45)
[2021-12-15] MEDS ORDERED: hydrALAZINE 20 MG/ML VIAL SLOW IVP PRN (23:54)
[2021-12-16] MEDS: Acetaminophen 325 MG TAB PO SCH ×5 (00:20→23:53)
[2021-12-16] MEDS: Cefepime 1 GM in Sodium Chloride 0.9% 100 ML IVPB SCH ×2 (04:01→16:23)
[2021-12-16] MEDS: Polyethylene Glycol 3350 17 GM Packet PO SCH (08:56)
[2021-12-16] MEDS: Ramipril 5 MG CAP PO SCH ×2 (08:56→20:54)
[2021-12-16] MEDS: Stress 600 With Zinc 1 TAB PO SCH (08:56)
[2021-12-16] MEDS: CeleCOXIB 100 MG CAP PO SCH (08:56)
[2021-12-16] MEDS: Allopurinol 100 MG TAB PO SCH (08:57)
[2021-12-16] MEDS: Isosorbide Dinitrate 5 MG TAB PO SCH ×2 (08:57→20:54)
[2021-12-16] MEDS: Aspirin Chewable 81 MG TAB PO SCH ×2 (08:57→20:55)
[2021-12-16] MEDS: Pregabalin 50 MG CAP PO SCH ×2 (08:57→20:54)
[2021-12-16] MEDS: Montelukast Sodium 10 mg Tablet PO SCH (08:57)
[2021-12-16] MEDS: Lorazepam 0.5 MG TAB PO SCH ×2 (08:58→20:55)
[2021-12-16] MEDS: Ascorbic Acid 500 mg Chewable Tablet PO SCH ×2 (08:58→20:55)
[2021-12-16] MEDS: Carvedilol 3.125 MG TAB PO SCH ×2 (09:00→20:55)
[2021-12-16 09:02] LABS: Vancomycin, Random 17.3 ug/mL (See Comment)
[2021-12-16] MEDS: HYDROcodone/Acetaminophen 5/325 mg Tablet PO PRN ×2 (09:06→20:55)
[2021-12-16] MEDS ORDERED: Vancomycin HCl 500 MG in Sodium Chloride 0.9% 100 ML IVPB SCH (09:15)
[2021-12-16] MEDS ORDERED: Amlodipine 10 MG TAB PO SCH (11:15)
[2021-12-16] MEDS ORDERED: Hydrochlorothiazide 25 MG TAB PO SCH (11:30)
[2021-12-16] MEDS ORDERED: Dextrose 50% Abboject 50 ML SYRINGE SLOW IVP PRN (11:57)
[2021-12-16] MEDS ORDERED: Insulin Regular 300 UNITS/3 ML VIAL SC SCH (12:00)
[2021-12-16 13:01] LABS: Potassium 5.6 mmol/L (3.5-5.1)
[2021-12-16] MEDS: Cyclobenzaprine 10 MG TAB PO PRN (13:41)
[2021-12-16] MEDS ORDERED: Dextrose 10% in Water 250 ML IVPB SCH (13:45)
[2021-12-16 15:25] LABS: Potassium 5.4 mmol/L (3.5-5.1)
[2021-12-16] MEDS: Simvastatin 10 MG TAB PO SCH (20:54)
[2021-12-17] MEDS: Cefepime 1 GM in Sodium Chloride 0.9% 100 ML IVPB SCH ×2 (03:55→16:39)
[2021-12-17] MEDS: Acetaminophen 325 MG TAB PO SCH ×3 (06:24→18:40)
[2021-12-17] MEDS: Cyclobenzaprine 10 MG TAB PO PRN (08:58)
[2021-12-17] MEDS: CeleCOXIB 100 MG CAP PO SCH (08:59)
[2021-12-17] MEDS: Carvedilol 3.125 MG TAB PO SCH ×2 (08:59→19:51)
[2021-12-17] MEDS: Pregabalin 50 MG CAP PO SCH ×2 (08:59→19:51)
[2021-12-17] MEDS: Lorazepam 0.5 MG TAB PO SCH ×2 (08:59→19:51)
[2021-12-17] MEDS: Allopurinol 100 MG TAB PO SCH (09:00)
[2021-12-17] MEDS: Aspirin Chewable 81 MG TAB PO SCH ×2 (09:00→19:54)
[2021-12-17] MEDS: Amlodipine 10 MG TAB PO SCH (09:00)
[2021-12-17] MEDS: Hydrochlorothiazide 25 MG TAB PO SCH (09:00)
[2021-12-17] MEDS: Montelukast Sodium 10 mg Tablet PO SCH (09:00)
[2021-12-17] MEDS: HYDROcodone/Acetaminophen 5/325 mg Tablet PO PRN ×3 (09:01→19:55)
[2021-12-17] MEDS: Ramipril 5 MG CAP PO SCH ×2 (09:01→19:51)
[2021-12-17] MEDS: Ascorbic Acid 500 mg Chewable Tablet PO SCH ×2 (09:01→19:51)
[2021-12-17] MEDS: Isosorbide Dinitrate 5 MG TAB PO SCH ×2 (09:02→19:50)
[2021-12-17] MEDS: Stress 600 With Zinc 1 TAB PO SCH (09:02)
[2021-12-17] MEDS: Polyethylene Glycol 3350 17 GM Packet PO SCH (09:02)
[2021-12-17 09:22] LABS: Anion Gap 11 mmol/L (10-20); BUN (Urea Nitrogen) 21 mg/dL (9.8-20.1); Calc. Creatinine Clearance 45 mL/min (70-130); Calcium 8.7 mg/dL (7.8-10.44); Carbon Dioxide 21 mmol/L (23-31); Chloride 111 mmol/L (98-107); Glucose 99 mg/dL (83-110); Potassium 5.5 mmol/L (3.5-5.1); Sodium 137 mmol/L (136-145)
[2021-12-17 10:29] LABS: Vancomycin, Random 15.8 ug/mL (See Comment)
[2021-12-17] MEDS ORDERED: Vancomycin HCl 500 MG in Sodium Chloride 0.9% 100 ML IVPB SCH (12:00)
[2021-12-17] MEDS ORDERED: Dextrose 50% Abboject 50 ML SYRINGE SLOW IVP PRN (18:33)
[2021-12-17] MEDS ORDERED: Insulin Regular 300 UNITS/3 ML VIAL IVP SCH (18:45)
[2021-12-17] MEDS: Simvastatin 10 MG TAB PO SCH (19:50)
[2021-12-17] MEDS: LOKELMA 10 GM PACKET PO SCH (19:54)
[2021-12-18] MEDS: Acetaminophen 325 MG TAB PO SCH ×4 (00:49→17:55)
[2021-12-18] MEDS: Cefepime 1 GM in Sodium Chloride 0.9% 100 ML IVPB SCH (04:47)
[2021-12-18] MEDS: HYDROcodone/Acetaminophen 5/325 mg Tablet PO PRN ×4 (05:23→20:57)
[2021-12-18 06:36] LABS: Anion Gap 14 mmol/L (10-20); BUN (Urea Nitrogen) 24 mg/dL (9.8-20.1); Calc. Creatinine Clearance 39 mL/min (70-130); Calcium 8.9 mg/dL (7.8-10.44); Carbon Dioxide 16 mmol/L (23-31); Chloride 112 mmol/L (98-107); Glucose 86 mg/dL (83-110); Potassium 6.3 mmol/L (3.5-5.1); Sodium 136 mmol/L (136-145)
[2021-12-18] MEDS ORDERED: Dextrose 50% Abboject 50 ML SYRINGE SLOW IVP SCH (07:15)
[2021-12-18] MEDS ORDERED: Calcium Gluconate 9.2 MEQ in Sodium Chloride 0.9% 100 ML IVPB SCH (07:15)
[2021-12-18] MEDS ORDERED: Insulin Regular 300 UNITS/3 ML VIAL IVP SCH (07:15)
[2021-12-18] MEDS ORDERED: Lactated Ringer's 500 ML IV SCH (08:00)
[2021-12-18] MEDS ORDERED: Furosemide 40 MG/4 ML VIAL SLOW IVP SCH (08:00)
[2021-12-18] MEDS: Montelukast Sodium 10 mg Tablet PO SCH (08:19)
[2021-12-18] MEDS: Stress 600 With Zinc 1 TAB PO SCH (08:19)
[2021-12-18] MEDS: Ascorbic Acid 500 mg Chewable Tablet PO SCH ×2 (08:19→20:57)
[2021-12-18] MEDS: Allopurinol 100 MG TAB PO SCH (08:19)
[2021-12-18] MEDS: Pregabalin 50 MG CAP PO SCH ×2 (08:20→20:56)
[2021-12-18] MEDS: Aspirin Chewable 81 MG TAB PO SCH ×2 (08:20→20:52)
[2021-12-18] MEDS: Hydrochlorothiazide 25 MG TAB PO SCH (08:20)
[2021-12-18] MEDS: Amlodipine 10 MG TAB PO SCH (08:21)
[2021-12-18] MEDS: Cyclobenzaprine 10 MG TAB PO PRN ×2 (08:21→20:52)
[2021-12-18] MEDS: Lorazepam 0.5 MG TAB PO SCH ×2 (08:21→20:57)
[2021-12-18] MEDS: Carvedilol 3.125 MG TAB PO SCH ×2 (08:21→20:53)
[2021-12-18] MEDS: Polyethylene Glycol 3350 17 GM Packet PO SCH (09:00)
[2021-12-18] MEDS: Isosorbide Dinitrate 5 MG TAB PO SCH ×2 (09:00→20:54)
[2021-12-18] MEDS: LOKELMA 10 GM PACKET PO SCH ×3 (09:00→20:51)
[2021-12-18] MEDS: Lactated Ringer's 1,000 ML IV SCH (11:59)
[2021-12-18 12:07] LABS: Potassium 5.1 mmol/L (3.5-5.1)
[2021-12-18] MEDS: Cephalexin 250 MG CAP PO SCH ×2 (13:00→17:55)
[2021-12-18] MEDS: Simvastatin 10 MG TAB PO SCH (20:56)
[2021-12-18] MEDS: Docusate 100 MG CAP PO PRN (20:57)
[2021-12-19] MEDS: Acetaminophen 325 MG TAB PO SCH ×3 (00:20→11:51)
[2021-12-19] MEDS: Lactated Ringer's 1,000 ML IV SCH (00:21)
[2021-12-19] MEDS: Cephalexin 250 MG CAP PO SCH ×3 (00:21→11:52)
[2021-12-19] MEDS: Morphine 4 MG/ML VIAL SLOW IVP PRN ×2 (05:20→09:48)
[2021-12-19] MEDS: HYDROcodone/Acetaminophen 5/325 mg Tablet PO PRN ×3 (05:22→14:46)
[2021-12-19 06:09] LABS: Anion Gap 12 mmol/L (10-20); BUN (Urea Nitrogen) 23 mg/dL (9.8-20.1); Calc. Creatinine Clearance 40 mL/min (70-130); Calcium 9.4 mg/dL (7.8-10.44); Carbon Dioxide 23 mmol/L (23-31); Chloride 108 mmol/L (98-107); Glucose 115 mg/dL (83-110); Sodium 138 mmol/L (136-145)
[2021-12-19] MEDS: Polyethylene Glycol 3350 17 GM Packet PO SCH (09:22)
[2021-12-19] MEDS: Isosorbide Dinitrate 5 MG TAB PO SCH (09:23)
[2021-12-19] MEDS: LOKELMA 10 GM PACKET PO SCH ×2 (09:23→14:46)
[2021-12-19] MEDS: Allopurinol 100 MG TAB PO SCH (09:24)
[2021-12-19] MEDS: Hydrochlorothiazide 25 MG TAB PO SCH (09:24)
[2021-12-19] MEDS: Aspirin Chewable 81 MG TAB PO SCH (09:24)
[2021-12-19] MEDS: Lorazepam 0.5 MG TAB PO SCH (09:24)
[2021-12-19] MEDS: Stress 600 With Zinc 1 TAB PO SCH (09:24)
[2021-12-19] MEDS: Amlodipine 10 MG TAB PO SCH (09:24)
[2021-12-19] MEDS: Carvedilol 3.125 MG TAB PO SCH (09:24)
[2021-12-19] MEDS: Montelukast Sodium 10 mg Tablet PO SCH (09:25)
[2021-12-19] MEDS: Pregabalin 50 MG CAP PO SCH (09:25)
[2021-12-19] MEDS: Ascorbic Acid 500 mg Chewable Tablet PO SCH (09:25)
[2021-12-19] MEDS: Cyclobenzaprine 10 MG TAB PO PRN (11:51)
[2021-12-19 15:53] VITALS: BP 148/70; TEMP 98.4
== END 2021-12-19 15:45 | DRG 496 ==
LOC: ERS 14:30 → SURG A 16:30 → OBSVTOIN 12-08 15:53
PROVIDERS: ADMIT Orthopaedic Surgery; ATTEND Internal Medicine
PROC: 0LSQ0ZZ Reposition Right Knee Tendon, Open Approach (ICD-10-PCS; principal; 2021-12-08)
PROC: 0QPD04Z Removal of Internal Fixation Device from Right Patella, Open Approach (ICD-10-PCS; 2021-12-08)
DX: T84.196A Other mechanical complication of internal fixation device of bone of right lower leg, initial encounter (principal); N17.9 Acute kidney failure, unspecified; I69.351 Hemiplegia and hemiparesis following cerebral infarction affecting right dominant side; T81.31XA Disruption of external operation (surgical) wound, not elsewhere classified, initial encounter; I50.32 Chronic diastolic (congestive) heart failure; I13.0 Hypertensive heart and chronic kidney disease with heart failure and stage 1 through stage 4 chronic kidney disease, or unspecified chronic kidney disease; Z20.822 Contact with and (suspected) exposure to COVID-19; Y83.1 Surgical operation with implant of artificial internal device as the cause of abnormal reaction of the patient, or of later complication, without mention of misadventure at the time of the procedure; N18.9 Chronic kidney disease, unspecified; M19.90 Unspecified osteoarthritis, unspecified site; M35.3 Polymyalgia rheumatica; F41.9 Anxiety disorder, unspecified; E87.5 Hyperkalemia; T39.395A Adverse effect of other nonsteroidal anti-inflammatory drugs [NSAID], initial encounter; T46.4X5A Adverse effect of angiotensin-converting-enzyme inhibitors, initial encounter; Z90.49 Acquired absence of other specified parts of digestive tract; Z90.710 Acquired absence of both cervix and uterus; Z95.0 Presence of cardiac pacemaker; S82.001 Unspecified fracture of right patella; W18.30XD Fall on same level, unspecified, subsequent encounter; Z88.6 Allergy status to analgesic agent; Z88.1 Allergy status to other antibiotic agents; Z88.5 Allergy status to narcotic agent; Z88.0 Allergy status to penicillin; Z88.8 Allergy status to other drugs, medicaments and biological substances; Z91.018 Allergy to other foods
CPT/HCPCS: 36415; 36416; 76770; 80048; 80053; 80202; 84132; 84484; 85025; 90715; 93005; 93010; 93975; 96365; 96367; 96375; 96376; G0378; J0610; J0692; J1815; J1940; J2060; J2270; J2405; J2704; J3010; J3370; J3490; J7050; J7120; Q0169; S0020; S0028; U0002; U0003; U0005

== ENCOUNTER 2021-12-22 14:47 | Observation (INO) | payer MEDICARE ==
[2021-12-22 15:49] LABS: #Eosinphils 0.2 thou/uL (0.0-0.7); #Lymphocytes 2.5 thou/uL (1.20-3.40); #Monocytes 0.6 thou/uL (0.11-0.59); #Neutrophils 8.1 thou/uL (1.40-6.50); %Basophils 0.3 % (0.0-1.0); %Eosinophils 1.4 % (0.0-10.0); %Lymphocytes 21.7 % (21.0-51.0); %Monocytes 5.3 % (0.0-10.0); %Neutrophils 71.4 % (42.0-75.0); Hemoglobin 10.4 g/dL (12.0-16.0); Mean Corpuscular Hemoglobin 30.7 pg (27.0-31.0); Mean Corpuscular Volume 90.2 fL (78.0-98.0); Platelet Count 264 thou/uL (130-400); RBC Distribution Width 14.3 % (11.5-14.5); Red Blood Cell (RBC) Count 3.39 mill/uL (4.20-5.40); White Blood Cell (WBC) Count 11.4 thou/uL (4.8-10.8)
[2021-12-22 16:11] LABS: ALT (SGPT) 11 U/L (8-55); AST (SGOT) 16 U/L (5-34); Albumin 3.2 g/dL (3.4-4.8); Alkaline Phosphatase 47 U/L (40-110); Anion Gap 14 mmol/L (10-20); BUN (Urea Nitrogen) 17 mg/dL (9.8-20.1); Bilirubin, Total 0.5 mg/dL (0.2-1.2); Calc. Creatinine Clearance 0 mL/min (70-130); Calcium 9.2 mg/dL (7.8-10.44); Carbon Dioxide 20 mmol/L (23-31); Chloride 108 mmol/L (98-107); Globulin 2.3 g/dL (2.4-3.5); Glucose 106 mg/dL (83-110); Potassium 4.1 mmol/L (3.5-5.1); Protein, Total 5.5 g/dL (5.8-8.1); Sodium 138 mmol/L (136-145)
[2021-12-22] MEDS ORDERED: Fentanyl 100 MCG/2 ML VIAL ONE (16:14)
[2021-12-22] MEDS ORDERED: Lorazepam 2 MG/ML VIAL ONE (16:14)
[2021-12-22] MEDS ORDERED: Ketorolac Tromethamine 30 MG/ML VIAL ONE (16:14)
[2021-12-22] MEDS ORDERED: Morphine 4 MG/ML VIAL SLOW IVP PRN (22:37)
[2021-12-22] MEDS ORDERED: Ondansetron ODT 4 MG TAB SL PRN (22:45)
[2021-12-22] MEDS ORDERED: Ondansetron PF 4 MG/2 ML Vial IVP PRN (22:45)
[2021-12-22 22:55] VITALS: BMI 27.3
[2021-12-23] MEDS: Cyclobenzaprine 10 MG TAB PO PRN ×3 (00:43→21:12)
[2021-12-23] MEDS: HYDROcodone/Acetaminophen 5/325 mg Tablet PO PRN ×3 (00:43→16:59)
[2021-12-23] MEDS ORDERED: Melatonin 3 MG TAB ONE (02:36)
[2021-12-23] MEDS ORDERED: ALPRAZolam 0.5 MG TAB ONE (02:36)
[2021-12-23] MEDS ORDERED: hydrOXYzine 10 MG TAB PO SCH (06:15)
[2021-12-23] MEDS ORDERED: hydrALAZINE 20 MG/ML VIAL SLOW IVP PRN (06:17)
[2021-12-23] MEDS ORDERED: Lorazepam 0.5 MG TAB PO SCH (22:00)
[2021-12-23] MEDS ORDERED: Pregabalin 50 MG CAP PO SCH (22:00)
[2021-12-24] MEDS: Pregabalin 50 MG CAP PO SCH ×2 (09:31→20:33)
[2021-12-24] MEDS: HYDROcodone/Acetaminophen 5/325 mg Tablet PO PRN ×2 (09:32→19:16)
[2021-12-24] MEDS: tiZANidine HCl 4 MG TAB PO SCH ×2 (09:32→20:33)
[2021-12-24] MEDS: Lorazepam 0.5 MG TAB PO SCH ×2 (09:33→20:33)
[2021-12-24] MEDS ORDERED: Docusate 100 MG CAP PO PRN (10:39)
[2021-12-24] MEDS ORDERED: Diphenoxylate HCl/Atropine Tablet PO PRN (10:39)
[2021-12-24 12:34] LABS: Bacteria/HPF None Seen HPF (None Seen); Bilirubin Negative (Negative); Blood, Urine Negative (Negative); Clarity Clear (Clear); Glucose, Urine (Dipstick) Normal (Negative); Ketone, Urine Negative (Negative); Leukocyte Negative Leu/uL (Negative); Nitrite Negative (Negative); Protein, Urine (Dipstick) 10 mg/dL (Neg-Trace); RBC/HPF 0-3 HPF (0-3); Specific Gravity, Urine 1.016 (1.002-1.036); Squamous Epithelial None Seen HPF (0-3); Urobilinogen Normal mg/dL (Less than 2); WBC/HPF 0-3 HPF (0-3); pH, Urine 6.5 (5.0-9.0)
[2021-12-24] MEDS: Acetaminophen 325 MG TAB PO SCH ×3 (13:07→23:10)
[2021-12-24] MEDS: Ascorbic Acid 500 mg Chewable Tablet PO SCH (20:33)
[2021-12-24] MEDS: Carvedilol 3.125 MG TAB PO SCH (20:33)
[2021-12-24] MEDS: Isosorbide Dinitrate 20 MG TAB PO SCH (20:34)
[2021-12-24] MEDS ORDERED: Simvastatin 10 MG TAB PO SCH (21:00)
[2021-12-25] MEDS: Acetaminophen 325 MG TAB PO SCH (05:01)
[2021-12-25 08:20] VITALS: BP 165/67; TEMP 97.3
[2021-12-25] MEDS ORDERED: Clopidogrel Bisulfate 75 MG TAB PO SCH (09:00)
[2021-12-25] MEDS ORDERED: Aspirin Chewable 81 MG TAB PO SCH (09:00)
[2021-12-25] MEDS ORDERED: Polyethylene Glycol 3350 17 GM Packet PO SCH (09:00)
[2021-12-25] MEDS ORDERED: Montelukast Sodium 10 mg Tablet PO SCH (09:00)
[2021-12-25] MEDS ORDERED: Allopurinol 100 MG TAB PO SCH (09:00)
[2021-12-25] MEDS: Ascorbic Acid 500 mg Chewable Tablet PO SCH (09:34)
[2021-12-25] MEDS: Pregabalin 50 MG CAP PO SCH (09:35)
[2021-12-25] MEDS: Lorazepam 0.5 MG TAB PO SCH (09:36)
[2021-12-25] MEDS: Carvedilol 3.125 MG TAB PO SCH (09:37)
[2021-12-25] MEDS: Isosorbide Dinitrate 20 MG TAB PO SCH (09:38)
[2021-12-25] MEDS: tiZANidine HCl 4 MG TAB PO SCH (09:39)
[2021-12-25] MEDS: HYDROcodone/Acetaminophen 5/325 mg Tablet PO PRN (09:44)
== END 2021-12-25 12:00 ==
LOC: ERS 14:47 → ERHOLD 18:13 → SJJU 22:37
PROVIDERS: ADMIT Orthopaedic Surgery; ATTEND Orthopaedic Surgery
DX: M79.604 Pain in right leg (principal); R25.2 Cramp and spasm; I69.351 Hemiplegia and hemiparesis following cerebral infarction affecting right dominant side; I13.0 Hypertensive heart and chronic kidney disease with heart failure and stage 1 through stage 4 chronic kidney disease, or unspecified chronic kidney disease; N18.9 Chronic kidney disease, unspecified; I50.30 Unspecified diastolic (congestive) heart failure; M19.90 Unspecified osteoarthritis, unspecified site; M35.3 Polymyalgia rheumatica; I25.10 Atherosclerotic heart disease of native coronary artery without angina pectoris; E78.5 Hyperlipidemia, unspecified; Z79.02 Long term (current) use of antithrombotics/antiplatelets; Z79.82 Long term (current) use of aspirin; Z79.899 Other long term (current) drug therapy; Z88.0 Allergy status to penicillin; Z88.1 Allergy status to other antibiotic agents; Z88.5 Allergy status to narcotic agent; Z88.8 Allergy status to other drugs, medicaments and biological substances; Z95.0 Presence of cardiac pacemaker; Z98.890 Other specified postprocedural states
CPT/HCPCS: 36415; 80053; 81001; 83605; 84484; 85025; 85652; 86140; 93005; 93010; 96374; 96375; G0378; J1885; J2060; J2270; J3010

== ENCOUNTER 2022-01-02 09:32 | Inpatient (IN) | payer MEDICARE ==
[2022-01-02] MEDS ORDERED: Heparin 1,000 UNITS/ML VIAL ONE (11:13)
[2022-01-02] MEDS ORDERED: Morphine 4 MG/ML VIAL SLOW IVP PRN (13:23)
[2022-01-02] MEDS ORDERED: Ondansetron ODT 4 MG TAB SL PRN (13:30)
[2022-01-02] MEDS ORDERED: Ondansetron PF 4 MG/2 ML Vial IVP PRN (13:30)
[2022-01-02] MEDS ORDERED: Acetaminophen 325 MG TAB PO PRN (13:30)
[2022-01-02 13:34] VITALS: BMI 27.1
[2022-01-02] MEDS: Lorazepam 1 MG TAB PO SCH ×2 (18:39→23:16)
[2022-01-02] MEDS ORDERED: Carvedilol 3.125 MG TAB PO SCH (21:00)
[2022-01-02] MEDS ORDERED: Ramipril 5 MG CAP PO SCH (21:00)
[2022-01-02] MEDS ORDERED: Isosorbide Dinitrate 5 MG TAB PO SCH (21:00)
[2022-01-02] MEDS: Gabapentin 300 MG CAP PO SCH (21:18)
[2022-01-02] MEDS: tiZANidine HCl 4 MG TAB PO SCH (21:18)
[2022-01-02] MEDS: Simvastatin 10 MG TAB PO SCH (21:26)
[2022-01-02] MEDS: Morphine IR Tab 15 MG TAB PO PRN (23:16)
[2022-01-03 05:15] LABS: #Eosinphils 0.2 thou/uL (0.0-0.7); #Lymphocytes 2.3 thou/uL (1.20-3.40); #Monocytes 1.2 thou/uL (0.11-0.59); #Neutrophils 7.8 thou/uL (1.40-6.50); %Basophils 0.4 % (0.0-1.0); %Eosinophils 1.7 % (0.0-10.0); %Lymphocytes 19.9 % (21.0-51.0); %Monocytes 10.1 % (0.0-10.0); Hemoglobin 11.8 g/dL (12.0-16.0); Mean Corpuscular HGB CONC 30.7 g/dL (32.0-36.0); Mean Corpuscular Hemoglobin 29.6 pg (27.0-31.0); Mean Corpuscular Volume 96.4 fL (78.0-98.0); Mean Platelet Volume 8.5 fL (7.4-10.4); Platelet Count 282 thou/uL (130-400); RBC Distribution Width 14.3 % (11.5-14.5); Red Blood Cell (RBC) Count 3.99 mill/uL (4.20-5.40); White Blood Cell (WBC) Count 11.5 thou/uL (4.8-10.8)
[2022-01-03] MEDS: Lorazepam 1 MG TAB PO SCH ×2 (05:42→12:53)
[2022-01-03 05:51] LABS: Bilirubin, Total 0.4 mg/dL (0.2-1.2); Calcium 9.4 mg/dL (7.8-10.44); Chloride 111 mmol/L (98-107); Potassium 5.5 mmol/L (3.5-5.1); Sodium 137 mmol/L (136-145)
[2022-01-03 05:53] LABS: Albumin 3.4 g/dL (3.4-4.8)
[2022-01-03 05:55] LABS: Glucose 92 mg/dL (83-110)
[2022-01-03 05:56] LABS: Protein, Total 6.5 g/dL (5.8-8.1)
[2022-01-03 05:57] LABS: Carbon Dioxide 12 mmol/L (23-31)
[2022-01-03 05:58] LABS: Alkaline Phosphatase 47 U/L (40-110)
[2022-01-03 05:59] LABS: Calc. Creatinine Clearance 31 mL/min (70-130)
[2022-01-03 06:00] LABS: BUN (Urea Nitrogen) 19 mg/dL (9.8-20.1)
[2022-01-03 06:01] LABS: ALT (SGPT) 8 U/L (8-55); Bilirubin, Direct 0.2 mg/dL (0.1-0.3)
[2022-01-03 06:02] LABS: Anion Gap 20 mmol/L (10-20); Uric Acid 5.9 mg/dL (2.6-6.0)
[2022-01-03 06:06] LABS: AST (SGOT) 30 U/L (5-34)
[2022-01-03] MEDS: Gabapentin 300 MG CAP PO SCH (08:36)
[2022-01-03] MEDS: Aspirin Chewable 81 MG TAB PO SCH (08:36)
[2022-01-03] MEDS: Enoxaparin Sodium 30 MG/0.3 ML SYRINGE SC SCH (08:36)
[2022-01-03] MEDS: Allopurinol 100 MG TAB PO SCH (08:37)
[2022-01-03] MEDS: tiZANidine HCl 4 MG TAB PO SCH (08:37)
[2022-01-03] MEDS ORDERED: Lorazepam 0.5 MG TAB PO SCH (13:30)
[2022-01-03] MEDS ORDERED: Sodium Chloride 0.9% 500 ML IV SCH (14:30)
[2022-01-03] MEDS: Sodium Chloride 0.9% 1,000 ML IV SCH (14:47)
[2022-01-03] MEDS: Lorazepam 0.5 MG TAB PO SCH ×2 (19:23→23:56)
[2022-01-03] MEDS: Morphine IR Tab 15 MG TAB PO PRN ×2 (20:14→23:56)
[2022-01-03] MEDS: Simvastatin 10 MG TAB PO SCH (20:18)
[2022-01-04] MEDS: Morphine IR Tab 15 MG TAB PO PRN ×4 (04:52→20:31)
[2022-01-04] MEDS: Lorazepam 0.5 MG TAB PO SCH ×3 (05:38→18:30)
[2022-01-04 05:46] LABS: #Eosinphils 0.5 thou/uL (0.0-0.7); #Lymphocytes 2.6 thou/uL (1.20-3.40); #Monocytes 0.7 thou/uL (0.11-0.59); #Neutrophils 3.9 thou/uL (1.40-6.50); %Basophils 0.4 % (0.0-1.0); %Eosinophils 5.9 % (0.0-10.0); %Lymphocytes 34.3 % (21.0-51.0); %Monocytes 9.4 % (0.0-10.0); Hemoglobin 10.5 g/dL (12.0-16.0); Mean Corpuscular HGB CONC 32.8 g/dL (32.0-36.0); Mean Corpuscular Hemoglobin 30.5 pg (27.0-31.0); Mean Corpuscular Volume 92.8 fL (78.0-98.0); Mean Platelet Volume 8.3 fL (7.4-10.4); Platelet Count 258 thou/uL (130-400); RBC Distribution Width 13.9 % (11.5-14.5); Red Blood Cell (RBC) Count 3.45 mill/uL (4.20-5.40); White Blood Cell (WBC) Count 7.7 thou/uL (4.8-10.8)
[2022-01-04 05:56] LABS: Anion Gap 13 mmol/L (10-20); BUN (Urea Nitrogen) 23 mg/dL (9.8-20.1); Calc. Creatinine Clearance 43 mL/min (70-130); Calcium 9.4 mg/dL (7.8-10.44); Carbon Dioxide 21 mmol/L (23-31); Chloride 111 mmol/L (98-107); Glucose 92 mg/dL (83-110); Potassium 4.5 mmol/L (3.5-5.1); Sodium 140 mmol/L (136-145)
[2022-01-04] MEDS: Aspirin Chewable 81 MG TAB PO SCH (09:15)
[2022-01-04] MEDS: Allopurinol 100 MG TAB PO SCH (09:15)
[2022-01-04] MEDS: Enoxaparin Sodium 30 MG/0.3 ML SYRINGE SC SCH (09:16)
[2022-01-04] MEDS ORDERED: CEFAZOLIN 2 GM, Admixture Fee 1 EACH in Sodium Chloride 0.9% 100 ML IVPB SCH (18:15)
[2022-01-04] MEDS: Simvastatin 10 MG TAB PO SCH (20:31)
[2022-01-05] MEDS: Lorazepam 0.5 MG TAB PO SCH ×5 (00:51→23:42)
[2022-01-05] MEDS: Morphine IR Tab 15 MG TAB PO PRN ×2 (04:00→12:38)
[2022-01-05 06:47] LABS: SARS-CoV-2 NAA Rapid Test Not Detected (NotDetected)
[2022-01-05 07:26] LABS: #Eosinphils 0.3 thou/uL (0.0-0.7); #Lymphocytes 1.9 thou/uL (1.20-3.40); #Monocytes 0.7 thou/uL (0.11-0.59); %Eosinophils 4.1 % (0.0-10.0); %Lymphocytes 23.6 % (21.0-51.0); %Monocytes 8.5 % (0.0-10.0); %Neutrophils 63.7 % (42.0-75.0); Hemoglobin 11.6 g/dL (12.0-16.0); Mean Corpuscular HGB CONC 31.9 g/dL (32.0-36.0); Mean Corpuscular Hemoglobin 29.6 pg (27.0-31.0); Mean Corpuscular Volume 92.8 fL (78.0-98.0); Mean Platelet Volume 8.9 fL (7.4-10.4); Platelet Count 194 thou/uL (130-400); RBC Distribution Width 13.9 % (11.5-14.5); Red Blood Cell (RBC) Count 3.93 mill/uL (4.20-5.40); White Blood Cell (WBC) Count 7.8 thou/uL (4.8-10.8)
[2022-01-05 07:37] LABS: Anion Gap 17 mmol/L (10-20); BUN (Urea Nitrogen) 17 mg/dL (9.8-20.1); Calc. Creatinine Clearance 54 mL/min (70-130); Calcium 9.4 mg/dL (7.8-10.44); Carbon Dioxide 19 mmol/L (23-31); Chloride 108 mmol/L (98-107); Glucose 100 mg/dL (83-110); Potassium 4.6 mmol/L (3.5-5.1); Sodium 139 mmol/L (136-145)
[2022-01-05] MEDS: Enoxaparin Sodium 30 MG/0.3 ML SYRINGE SC SCH (09:00)
[2022-01-05] MEDS: Aspirin Chewable 81 MG TAB PO SCH (09:00)
[2022-01-05] MEDS: Pregabalin 25 MG CAP PO SCH ×2 (09:00→21:51)
[2022-01-05] MEDS ORDERED: Carvedilol 3.125 MG TAB PO SCH (09:00)
[2022-01-05] MEDS: Allopurinol 100 MG TAB PO SCH (09:00)
[2022-01-05] MEDS: Ondansetron ODT 4 MG TAB PO PRN (09:58)
[2022-01-05] MEDS: cloNIDine 0.1 MG TAB PO PRN (12:37)
[2022-01-05] MEDS ORDERED: Morphine 4 MG/ML VIAL ONE ×2 (13:07→14:00)
[2022-01-05] MEDS ORDERED: Bupivacaine HCl 0.5%/Epinephrine 1:200,000/PF 30 ml Vial ONE (13:32)
[2022-01-05] MEDS ORDERED: Famotidine/PF 20 mg/2ml Vial ONE (14:32)
[2022-01-05] MEDS ORDERED: Clindamycin/D5W 900 mg/50 ml Premix Bag ONE (14:53)
[2022-01-05] MEDS ORDERED: Ondansetron PF 4 MG/2 ML Vial ONE (15:00)
[2022-01-05] MEDS ORDERED: Lidocaine 1% PF 5 ML VIAL ONE (15:00)
[2022-01-05] MEDS ORDERED: GLYCOPYRROLATE/PF 0.2 MG/ML VIAL ONE (15:00)
[2022-01-05] MEDS ORDERED: PROPOFOL 200 MG/20 ML VIAL ONE (15:00)
[2022-01-05] MEDS ORDERED: Promethazine HCl 25 MG/ML VIAL IVPB PRN (16:22)
[2022-01-05] MEDS ORDERED: Ondansetron HCl/PF 4 MG/2 ML Vial IVP PRN (16:22)
[2022-01-05] MEDS ORDERED: Morphine Sulfate 2 MG/ML SYRINGE SLOW IVP PRN (16:22)
[2022-01-05] MEDS ORDERED: Promethazine HCl 25 MG/ML VIAL IM PRN (16:22)
[2022-01-05] MEDS ORDERED: Morphine 4 MG/ML VIAL SLOW IVP PRN ×2 (16:28→16:44)
[2022-01-05] MEDS ORDERED: Communication Order-Pharmacy FS SCH (16:30)
[2022-01-05] MEDS ORDERED: TETANUS AND DIPHTHERIA TOX/PF 0.5 ML DISP.SYRIN IM SCH (16:30)
[2022-01-05] MEDS: Clindamycin/D5W 900 MG in Premix Bag 1 BAG IVPB SCH (18:53)
[2022-01-05] MEDS: Carvedilol 3.125 MG TAB PO SCH (18:57)
[2022-01-05] MEDS: Simvastatin 10 MG TAB PO SCH (21:51)
[2022-01-05] MEDS: Aspirin 81 mg Enteric Coated Tablet PO SCH (21:51)
[2022-01-06] MEDS: Clindamycin/D5W 900 MG in Premix Bag 1 BAG IVPB SCH ×3 (02:31→18:20)
[2022-01-06] MEDS: Ondansetron ODT 4 MG TAB PO PRN (06:06)
[2022-01-06 09:54] LABS: #Eosinphils 0.1 thou/uL (0.0-0.7); #Lymphocytes 1.2 thou/uL (1.20-3.40); #Neutrophils 7.7 thou/uL (1.40-6.50); %Basophils 0.1 % (0.0-1.0); %Eosinophils 0.6 % (0.0-10.0); %Lymphocytes 11.9 % (21.0-51.0); %Monocytes 9.7 % (0.0-10.0); %Neutrophils 77.8 % (42.0-75.0); Mean Corpuscular HGB CONC 32.8 g/dL (32.0-36.0); Mean Corpuscular Hemoglobin 30.2 pg (27.0-31.0); Mean Corpuscular Volume 92.1 fL (78.0-98.0); Mean Platelet Volume 8.6 fL (7.4-10.4); Platelet Count 242 thou/uL (130-400); RBC Distribution Width 13.9 % (11.5-14.5); Red Blood Cell (RBC) Count 3.64 mill/uL (4.20-5.40); White Blood Cell (WBC) Count 9.8 thou/uL (4.8-10.8)
[2022-01-06] MEDS: Aspirin 81 mg Enteric Coated Tablet PO SCH ×2 (09:58→20:54)
[2022-01-06] MEDS: Carvedilol 3.125 MG TAB PO SCH ×2 (09:58→18:22)
[2022-01-06] MEDS: Allopurinol 100 MG TAB PO SCH (09:58)
[2022-01-06] MEDS: Lorazepam 0.5 MG TAB PO SCH ×4 (09:59→20:53)
[2022-01-06] MEDS: Pregabalin 25 MG CAP PO SCH ×2 (09:59→20:55)
[2022-01-06] MEDS: Enoxaparin Sodium 30 MG/0.3 ML SYRINGE SC SCH (10:00)
[2022-01-06 10:03] LABS: Anion Gap 16 mmol/L (10-20); BUN (Urea Nitrogen) 11 mg/dL (9.8-20.1); Calc. Creatinine Clearance 61 mL/min (70-130); Calcium 9.2 mg/dL (7.8-10.44); Carbon Dioxide 20 mmol/L (23-31); Chloride 104 mmol/L (98-107); Glucose 111 mg/dL (83-110); Potassium 4.1 mmol/L (3.5-5.1); Sodium 136 mmol/L (136-145)
[2022-01-06] MEDS: Acetaminophen 325 MG TAB PO SCH ×3 (13:28→20:54)
[2022-01-06] MEDS: Ketorolac Tromethamine 30 MG/ML VIAL IVP SCH ×3 (13:29→23:39)
[2022-01-06] MEDS: Simvastatin 10 MG TAB PO SCH (20:56)
[2022-01-07] MEDS: Acetaminophen 325 MG TAB PO SCH ×6 (00:42→20:02)
[2022-01-07] MEDS: Clindamycin/D5W 900 MG in Premix Bag 1 BAG IVPB SCH ×3 (00:42→16:29)
[2022-01-07] MEDS: Ketorolac Tromethamine 30 MG/ML VIAL IVP SCH ×3 (05:29→17:00)
[2022-01-07] MEDS: Lorazepam 0.5 MG TAB PO SCH ×4 (07:31→20:01)
[2022-01-07] MEDS: Carvedilol 3.125 MG TAB PO SCH ×2 (07:31→16:28)
[2022-01-07] MEDS: Enoxaparin Sodium 30 MG/0.3 ML SYRINGE SC SCH (09:41)
[2022-01-07] MEDS: Allopurinol 100 MG TAB PO SCH (09:42)
[2022-01-07] MEDS: Aspirin 81 mg Enteric Coated Tablet PO SCH ×2 (09:43→20:01)
[2022-01-07] MEDS: Pregabalin 25 MG CAP PO SCH ×2 (09:44→20:01)
[2022-01-07] MEDS ORDERED: Milk Of Magnesia 30 ML UDCUP PO SCH (12:15)
[2022-01-07] MEDS ORDERED: Fleet Enema 133 ML BOT PR SCH (16:00)
[2022-01-07] MEDS: Promethazine HCl 25 MG/ML VIAL IM PRN (18:07)
[2022-01-07] MEDS: Simvastatin 10 MG TAB PO SCH (20:03)
[2022-01-07] MEDS: Ondansetron ODT 4 MG TAB PO PRN (21:11)
[2022-01-08] MEDS: Acetaminophen 325 MG TAB PO SCH ×7 (00:59→23:52)
[2022-01-08] MEDS: Ketorolac Tromethamine 30 MG/ML VIAL IVP SCH ×5 (00:59→23:51)
[2022-01-08] MEDS: Clindamycin/D5W 900 MG in Premix Bag 1 BAG IVPB SCH ×4 (00:59→23:52)
[2022-01-08] MEDS: Sodium Chloride 0.9% 1,000 ML IV SCH ×3 (05:59→23:01)
[2022-01-08 06:21] LABS: #Eosinphils 0.4 thou/uL (0.0-0.7); #Lymphocytes 1.6 thou/uL (1.20-3.40); #Monocytes 0.9 thou/uL (0.11-0.59); #Neutrophils 4.4 thou/uL (1.40-6.50); %Basophils 0.4 % (0.0-1.0); %Eosinophils 5.3 % (0.0-10.0); %Lymphocytes 21.4 % (21.0-51.0); %Monocytes 12.3 % (0.0-10.0); %Neutrophils 60.7 % (42.0-75.0); Hemoglobin 8.9 g/dL (12.0-16.0); Mean Corpuscular HGB CONC 33.8 g/dL (32.0-36.0); Mean Corpuscular Hemoglobin 30.9 pg (27.0-31.0); Mean Corpuscular Volume 91.5 fL (78.0-98.0); Mean Platelet Volume 8.3 fL (7.4-10.4); Platelet Count 202 thou/uL (130-400); RBC Distribution Width 13.8 % (11.5-14.5); Red Blood Cell (RBC) Count 2.89 mill/uL (4.20-5.40); White Blood Cell (WBC) Count 7.3 thou/uL (4.8-10.8)
[2022-01-08 06:58] LABS: Anion Gap 9 mmol/L (10-20); BUN (Urea Nitrogen) 19 mg/dL (9.8-20.1); Calc. Creatinine Clearance 33 mL/min (70-130); Carbon Dioxide 24 mmol/L (23-31); Chloride 106 mmol/L (98-107); Glucose 90 mg/dL (83-110); Potassium 3.2 mmol/L (3.5-5.1); Sodium 136 mmol/L (136-145)
[2022-01-08] MEDS: Aspirin 81 mg Enteric Coated Tablet PO SCH ×2 (08:49→21:32)
[2022-01-08] MEDS: Carvedilol 3.125 MG TAB PO SCH ×2 (08:50→16:06)
[2022-01-08] MEDS: Pregabalin 25 MG CAP PO SCH ×2 (08:51→21:31)
[2022-01-08] MEDS: Allopurinol 100 MG TAB PO SCH (08:51)
[2022-01-08] MEDS: Lorazepam 0.5 MG TAB PO SCH ×4 (08:53→21:31)
[2022-01-08] MEDS: Enoxaparin Sodium 30 MG/0.3 ML SYRINGE SC SCH (08:54)
[2022-01-08] MEDS: Potassium Chloride 20 MEQ TAB PO SCH ×2 (09:00→21:32)
[2022-01-08] MEDS: Ondansetron ODT 4 MG TAB PO PRN (11:37)
[2022-01-08] MEDS ORDERED: tiZANidine HCl 4 MG TAB PO SCH (18:45)
[2022-01-08] MEDS ORDERED: tiZANidine HCl 4 MG TAB PO PRN (18:51)
[2022-01-08] MEDS: Simvastatin 10 MG TAB PO SCH (21:32)
[2022-01-08] MEDS: Promethazine HCl 25 MG/ML VIAL IM PRN (22:36)
[2022-01-09] MEDS: Sodium Chloride 0.9% 1,000 ML IV SCH ×4 (02:01→23:36)
[2022-01-09] MEDS: Acetaminophen 325 MG TAB PO SCH ×5 (05:54→20:40)
[2022-01-09] MEDS: Ketorolac Tromethamine 30 MG/ML VIAL IVP SCH ×2 (05:54→12:25)
[2022-01-09] MEDS: Enoxaparin Sodium 30 MG/0.3 ML SYRINGE SC SCH (09:50)
[2022-01-09] MEDS: Clindamycin/D5W 900 MG in Premix Bag 1 BAG IVPB SCH ×2 (09:50→16:11)
[2022-01-09] MEDS: Aspirin 81 mg Enteric Coated Tablet PO SCH ×2 (10:23→20:40)
[2022-01-09] MEDS: Potassium Chloride 20 MEQ TAB PO SCH ×2 (10:23→20:38)
[2022-01-09] MEDS: Allopurinol 100 MG TAB PO SCH (10:23)
[2022-01-09] MEDS: Pregabalin 25 MG CAP PO SCH ×2 (10:23→20:41)
[2022-01-09] MEDS: Lorazepam 0.5 MG TAB PO SCH ×3 (10:24→20:41)
[2022-01-09] MEDS: Carvedilol 3.125 MG TAB PO SCH (10:24)
[2022-01-09] MEDS: Carvedilol 6.25 MG TAB PO SCH (16:12)
[2022-01-09] MEDS: Simvastatin 10 MG TAB PO SCH (20:38)
[2022-01-09] MEDS: Ketorolac Tromethamine 30 MG/ML VIAL IVP PRN (21:29)
[2022-01-10] MEDS: tiZANidine HCl 4 MG TAB PO PRN ×3 (00:21→20:14)
[2022-01-10] MEDS: Acetaminophen 325 MG TAB PO SCH ×6 (00:22→20:10)
[2022-01-10] MEDS: Clindamycin/D5W 900 MG in Premix Bag 1 BAG IVPB SCH ×3 (00:22→15:59)
[2022-01-10 05:30] LABS: #Eosinphils 0.3 thou/uL (0.0-0.7); #Lymphocytes 1.9 thou/uL (1.20-3.40); #Monocytes 0.4 thou/uL (0.11-0.59); #Neutrophils 2.9 thou/uL (1.40-6.50); %Basophils 0.1 % (0.0-1.0); %Eosinophils 5.9 % (0.0-10.0); %Lymphocytes 33.7 % (21.0-51.0); %Monocytes 7.7 % (0.0-10.0); %Neutrophils 52.6 % (42.0-75.0); Hemoglobin 8.3 g/dL (12.0-16.0); Mean Corpuscular Hemoglobin 30.9 pg (27.0-31.0); Mean Corpuscular Volume 93.8 fL (78.0-98.0); Mean Platelet Volume 8.6 fL (7.4-10.4); Platelet Count 216 thou/uL (130-400); Red Blood Cell (RBC) Count 2.68 mill/uL (4.20-5.40); White Blood Cell (WBC) Count 5.6 thou/uL (4.8-10.8)
[2022-01-10] MEDS: Sodium Chloride 0.9% 1,000 ML IV SCH ×3 (05:55→21:33)
[2022-01-10 05:56] LABS: Anion Gap 9 mmol/L (10-20); BUN (Urea Nitrogen) 13 mg/dL (9.8-20.1); Calc. Creatinine Clearance 53 mL/min (70-130); Calcium 7.5 mg/dL (7.8-10.44); Carbon Dioxide 18 mmol/L (23-31); Chloride 116 mmol/L (98-107); Glucose 98 mg/dL (83-110); Potassium 4.4 mmol/L (3.5-5.1); Sodium 139 mmol/L (136-145)
[2022-01-10] MEDS: Enoxaparin Sodium 30 MG/0.3 ML SYRINGE SC SCH (09:47)
[2022-01-10] MEDS: Carvedilol 6.25 MG TAB PO SCH ×2 (09:48→16:00)
[2022-01-10] MEDS: Aspirin 81 mg Enteric Coated Tablet PO SCH ×2 (09:48→20:11)
[2022-01-10] MEDS: Potassium Chloride 20 MEQ TAB PO SCH ×2 (09:48→21:33)
[2022-01-10] MEDS: Pregabalin 25 MG CAP PO SCH ×2 (09:48→20:12)
[2022-01-10] MEDS: Allopurinol 100 MG TAB PO SCH (09:48)
[2022-01-10] MEDS: Lorazepam 0.5 MG TAB PO SCH ×3 (09:49→20:15)
[2022-01-10] MEDS: Ondansetron ODT 4 MG TAB PO PRN ×3 (09:57→20:14)
[2022-01-10] MEDS: Ketorolac Tromethamine 30 MG/ML VIAL IVP PRN ×2 (11:19→20:07)
[2022-01-10] MEDS: Promethazine HCl 25 MG/ML VIAL IM PRN ×2 (11:19→17:56)
[2022-01-10] MEDS: Calcium Carbonate 500 MG ChewTAB PO SCH ×3 (13:32→20:12)
[2022-01-10] MEDS: Cyclobenzaprine 10 MG TAB PO PRN ×2 (13:33→20:12)
[2022-01-10] MEDS: Simvastatin 10 MG TAB PO SCH (20:15)
[2022-01-10] MEDS ORDERED: Lorazepam 1 MG TAB PO SCH (22:30)
[2022-01-11] MEDS: Acetaminophen 325 MG TAB PO SCH ×6 (01:25→21:12)
[2022-01-11] MEDS: Calcium Carbonate 500 MG ChewTAB PO SCH ×5 (01:25→21:10)
[2022-01-11] MEDS: Clindamycin/D5W 900 MG in Premix Bag 1 BAG IVPB SCH ×3 (01:25→17:16)
[2022-01-11] MEDS ORDERED: Clindamycin/D5W 900 mg/50 ml Premix Bag ONE (01:32)
[2022-01-11] MEDS: Sodium Chloride 0.9% 1,000 ML IV SCH ×3 (06:50→21:22)
[2022-01-11 07:20] LABS: #Eosinphils 0.3 thou/uL (0.0-0.7); #Lymphocytes 1.8 thou/uL (1.20-3.40); #Monocytes 0.7 thou/uL (0.11-0.59); #Neutrophils 4.8 thou/uL (1.40-6.50); %Basophils 0.6 % (0.0-1.0); %Eosinophils 4.6 % (0.0-10.0); %Lymphocytes 23.2 % (21.0-51.0); %Monocytes 8.7 % (0.0-10.0); %Neutrophils 62.9 % (42.0-75.0); Hemoglobin 8.6 g/dL (12.0-16.0); Mean Corpuscular HGB CONC 32.6 g/dL (32.0-36.0); Mean Corpuscular Hemoglobin 30.5 pg (27.0-31.0); Mean Corpuscular Volume 93.8 fL (78.0-98.0); Platelet Count 237 thou/uL (130-400); RBC Distribution Width 14.3 % (11.5-14.5); White Blood Cell (WBC) Count 7.6 thou/uL (4.8-10.8)
[2022-01-11 07:40] LABS: Anion Gap 10 mmol/L (10-20); BUN (Urea Nitrogen) 9 mg/dL (9.8-20.1); Calc. Creatinine Clearance 52 mL/min (70-130); Calcium 8.1 mg/dL (7.8-10.44); Carbon Dioxide 16 mmol/L (23-31); Chloride 118 mmol/L (98-107); Glucose 99 mg/dL (83-110); Potassium 4.7 mmol/L (3.5-5.1); Sodium 139 mmol/L (136-145)
[2022-01-11] MEDS: Enoxaparin Sodium 30 MG/0.3 ML SYRINGE SC SCH (08:19)
[2022-01-11] MEDS: Pregabalin 25 MG CAP PO SCH ×2 (08:20→21:11)
[2022-01-11] MEDS: Carvedilol 6.25 MG TAB PO SCH ×2 (08:20→17:17)
[2022-01-11] MEDS: Aspirin 81 mg Enteric Coated Tablet PO SCH ×2 (08:20→21:11)
[2022-01-11] MEDS: Potassium Chloride 20 MEQ TAB PO SCH ×2 (08:20→21:10)
[2022-01-11] MEDS: Allopurinol 100 MG TAB PO SCH (08:21)
[2022-01-11] MEDS: Lorazepam 0.5 MG TAB PO SCH ×3 (08:21→21:14)
[2022-01-11] MEDS: tiZANidine HCl 4 MG TAB PO PRN ×2 (08:57→21:12)
[2022-01-11] MEDS: Ondansetron ODT 4 MG TAB PO PRN ×2 (11:12→18:08)
[2022-01-11] MEDS: Cyclobenzaprine 10 MG TAB PO PRN ×2 (15:36→21:10)
[2022-01-11] MEDS ORDERED: Loperamide HCl 2 MG CAP PO SCH (16:45)
[2022-01-11] MEDS ORDERED: Lorazepam 1 MG TAB PO PRN (20:47)
[2022-01-11] MEDS ORDERED: Loperamide HCl 2 MG CAP PO PRN (20:47)
[2022-01-11] MEDS ORDERED: Transdermal Patch Removal TOP SCH (21:00)
[2022-01-11] MEDS: cloNIDine 0.1 MG TAB PO PRN (21:12)
[2022-01-11] MEDS: Ketorolac Tromethamine 30 MG/ML VIAL IVP PRN (21:13)
[2022-01-11] MEDS: Simvastatin 10 MG TAB PO SCH (21:13)
[2022-01-12] MEDS: Acetaminophen 325 MG TAB PO SCH ×4 (01:17→14:17)
[2022-01-12] MEDS: Clindamycin/D5W 900 MG in Premix Bag 1 BAG IVPB SCH ×2 (01:18→08:21)
[2022-01-12] MEDS: Sodium Chloride 0.9% 1,000 ML IV SCH ×2 (05:13→12:57)
[2022-01-12 05:39] LABS: #Eosinphils 0.3 thou/uL (0.0-0.7); #Lymphocytes 2.1 thou/uL (1.20-3.40); #Monocytes 0.5 thou/uL (0.11-0.59); #Neutrophils 4.8 thou/uL (1.40-6.50); %Basophils 0.3 % (0.0-1.0); %Eosinophils 4.2 % (0.0-10.0); %Lymphocytes 26.8 % (21.0-51.0); %Monocytes 6.9 % (0.0-10.0); %Neutrophils 61.9 % (42.0-75.0); Hemoglobin 8.6 g/dL (12.0-16.0); Mean Corpuscular HGB CONC 33.3 g/dL (32.0-36.0); Mean Corpuscular Volume 93.1 fL (78.0-98.0); Mean Platelet Volume 8.3 fL (7.4-10.4); Platelet Count 248 thou/uL (130-400); RBC Distribution Width 14.2 % (11.5-14.5); Red Blood Cell (RBC) Count 2.78 mill/uL (4.20-5.40); White Blood Cell (WBC) Count 7.7 thou/uL (4.8-10.8)
[2022-01-12 05:57] LABS: Anion Gap 9 mmol/L (10-20); BUN (Urea Nitrogen) 9 mg/dL (9.8-20.1); Calc. Creatinine Clearance 53 mL/min (70-130); Calcium 8.4 mg/dL (7.8-10.44); Carbon Dioxide 17 mmol/L (23-31); Chloride 117 mmol/L (98-107); Glucose 98 mg/dL (83-110); Sodium 138 mmol/L (136-145)
[2022-01-12] MEDS: Pregabalin 25 MG CAP PO SCH (08:20)
[2022-01-12] MEDS: Calcium Carbonate 500 MG ChewTAB PO SCH (08:21)
[2022-01-12] MEDS: Aspirin 81 mg Enteric Coated Tablet PO SCH (08:22)
[2022-01-12] MEDS: Enoxaparin Sodium 30 MG/0.3 ML SYRINGE SC SCH (08:22)
[2022-01-12] MEDS: Allopurinol 100 MG TAB PO SCH (08:24)
[2022-01-12] MEDS: Carvedilol 6.25 MG TAB PO SCH (08:24)
[2022-01-12] MEDS: Potassium Chloride 20 MEQ TAB PO SCH (08:24)
[2022-01-12] MEDS: Cyclobenzaprine 10 MG TAB PO PRN (09:37)
[2022-01-12] MEDS: Lorazepam 0.5 MG TAB PO SCH (11:16)
[2022-01-12] MEDS: Ondansetron ODT 4 MG TAB PO PRN (11:16)
[2022-01-12 11:43] VITALS: BP 139/60; TEMP 98.1
[2022-01-12 14:31] LABS: SARS-CoV-2 PCR by NAA Not Detected (NotDetected)
== END 2022-01-12 14:40 | DRG 488 ==
LOC: INTOOBSV 13:09 → 2NO 13:09 → SURG B 17:29 → OBSVTOIN 01-04 16:47
PROVIDERS: ADMIT Specialist; ATTEND Specialist
PROC: 0QBD0ZZ Excision of Right Patella, Open Approach (ICD-10-PCS; principal; 2022-01-04)
PROC: [UNRECOGNIZED PROCEDURE] (2022-01-04)
PROC: 02H633Z Insertion of Infusion Device into Right Atrium, Percutaneous Approach (ICD-10-PCS; 2022-01-05)
PROC: B548ZZA Ultrasonography of Superior Vena Cava, Guidance (ICD-10-PCS; 2022-01-05)
PROC: 3E03329 Introduction of Other Anti-infective into Peripheral Vein, Percutaneous Approach (ICD-10-PCS; 2022-01-05)
DX: T84.196A Other mechanical complication of internal fixation device of bone of right lower leg, initial encounter (principal); I69.951 Hemiplegia and hemiparesis following unspecified cerebrovascular disease affecting right dominant side; I13.0 Hypertensive heart and chronic kidney disease with heart failure and stage 1 through stage 4 chronic kidney disease, or unspecified chronic kidney disease; Z20.822 Contact with and (suspected) exposure to COVID-19; K21.9 Gastro-esophageal reflux disease without esophagitis; I50.9 Heart failure, unspecified; N18.9 Chronic kidney disease, unspecified; E78.5 Hyperlipidemia, unspecified; M19.90 Unspecified osteoarthritis, unspecified site; M10.9 Gout, unspecified; F41.1 Generalized anxiety disorder; Y83.8 Other surgical procedures as the cause of abnormal reaction of the patient, or of later complication, without mention of misadventure at the time of the procedure; Z90.49 Acquired absence of other specified parts of digestive tract; Z90.710 Acquired absence of both cervix and uterus; Z95.0 Presence of cardiac pacemaker; Z79.899 Other long term (current) drug therapy; Z88.5 Allergy status to narcotic agent; Z88.1 Allergy status to other antibiotic agents; Z88.8 Allergy status to other drugs, medicaments and biological substances
CPT/HCPCS: 36415; 36569; 80048; 80076; 84550; 85025; 87070; 87205; 96372; 96374; C1751; G0378; J1644; J1650; J1885; J2270; J2405; J2550; J2704; J3490; J7030; J7050; Q0162; S0028; U0002; U0003; U0005

== ENCOUNTER 2022-06-17 04:02 | Emergency (ER) | payer MEDICARE ==
[2022-06-17] MEDS ORDERED: Fentanyl 100 MCG/2 ML VIAL ONE (05:13)
[2022-06-17] MEDS ORDERED: Ondansetron PF 4 MG/2 ML Vial ONE ×2 (05:14→05:15)
[2022-06-17] MEDS ORDERED: Ketorolac Tromethamine 30 MG/ML VIAL ONE (05:15)
[2022-06-17 05:50] LABS: ALT (SGPT) 8 U/L (8-55); AST (SGOT) 14 U/L (5-34); Albumin 3.4 g/dL (3.4-4.8); Alkaline Phosphatase 66 U/L (40-110); Anion Gap 16 mmol/L (10-20); BUN (Urea Nitrogen) 22 mg/dL (9.8-20.1); Bilirubin, Total 0.4 mg/dL (0.2-1.2); Calc. Creatinine Clearance 0 mL/min (70-130); Calcium 8.4 mg/dL (7.8-10.44); Carbon Dioxide 20 mmol/L (23-31); Chloride 103 mmol/L (98-107); Estimated GFR 45; Globulin 2.2 g/dL (2.4-3.5); Glucose 99 mg/dL (83-110); Potassium 3.8 mmol/L (3.5-5.1); Protein, Total 5.6 g/dL (5.8-8.1); Sodium 135 mmol/L (136-145)
[2022-06-17 06:21] LABS: #Lymphocytes 0.9 thou/uL (1.20-3.40); #Monocytes 0.7 thou/uL (0.11-0.59); #Neutrophils 7.1 thou/uL (1.40-6.50); %Basophils 0.1 % (0.0-1.0); %Eosinophils 0.2 % (0.0-10.0); %Lymphocytes 10.1 % (21.0-51.0); %Monocytes 7.6 % (0.0-10.0); Hemoglobin 10.3 g/dL (12.0-16.0); Mean Corpuscular HGB CONC 32.5 g/dL (32.0-36.0); Mean Corpuscular Hemoglobin 27.5 pg (27.0-31.0); Mean Corpuscular Volume 84.5 fL (78.0-98.0); Mean Platelet Volume 10.5 fL (7.4-10.4); Platelet Count 139 thou/uL (130-400); RBC Distribution Width 13.7 % (11.5-14.5); Red Blood Cell (RBC) Count 3.74 mill/uL (4.20-5.40); White Blood Cell (WBC) Count 8.7 thou/uL (4.8-10.8)
== END 2022-06-17 08:40 | disposition home or self-care (01) ==
LOC: ERS 04:02
DX: U07.1 COVID-19 (principal); K21.9 Gastro-esophageal reflux disease without esophagitis; I13.0 Hypertensive heart and chronic kidney disease with heart failure and stage 1 through stage 4 chronic kidney disease, or unspecified chronic kidney disease; I50.9 Heart failure, unspecified; N18.9 Chronic kidney disease, unspecified; E78.5 Hyperlipidemia, unspecified; Z79.82 Long term (current) use of aspirin; Z79.899 Other long term (current) drug therapy; Z86.73 Personal history of transient ischemic attack (TIA), and cerebral infarction without residual deficits
CPT/HCPCS: 36415; 71045; 80053; 83880; 84484; 85025; 93005; 96374; 96375; J1885; J2405; J3010; J7620

== ENCOUNTER 2022-09-01 15:16 | Emergency (ER) | payer MEDICARE ==
[2022-09-01] MEDS ORDERED: Lidocaine 1% PF 5 ML VIAL ONE (15:43)
== END 2022-09-01 17:21 | disposition home or self-care (01) ==
LOC: ERS 15:16
DX: S01.81XA Laceration without foreign body of other part of head, initial encounter (principal); E78.5 Hyperlipidemia, unspecified; I13.0 Hypertensive heart and chronic kidney disease with heart failure and stage 1 through stage 4 chronic kidney disease, or unspecified chronic kidney disease; N18.9 Chronic kidney disease, unspecified; Z79.82 Long term (current) use of aspirin; I50.9 Heart failure, unspecified; Z79.02 Long term (current) use of antithrombotics/antiplatelets; Z79.899 Other long term (current) drug therapy; W05.2XXA Fall from non-moving motorized mobility scooter, initial encounter
CPT/HCPCS: 12013; 70450; 72125

== ENCOUNTER 2022-11-24 15:00 | Inpatient (IN) | payer MEDICARE ==
[~2022-11-24 15:00] MED LIST changes: -ISOVUE-370 76%-LOCM 1 ML ONE; +Iopamidol-370 76% 500 ML 1 ML ONE
[2022-11-24] MEDS ORDERED: NOREPINEPHRINE 8 MG/250 ML-D5W 250 ML ONE (15:28)
[2022-11-24] MEDS ORDERED: Fentanyl 100 MCG/2 ML VIAL ONE (15:30)
[2022-11-24 15:34] LABS: #Eosinphils 0.1 thou/uL (0.0-0.7); #Lymphocytes 2.7 thou/uL (1.20-3.40); #Monocytes 1.1 thou/uL (0.11-0.59); #Neutrophils 8.5 thou/uL (1.40-6.50); %Lymphocytes 21.7 % (21.0-51.0); %Monocytes 8.5 % (0.0-10.0); %Neutrophils 68.7 % (42.0-75.0); Hemoglobin 11.8 g/dL (12.0-16.0); Mean Corpuscular HGB CONC 33.3 g/dL (32.0-36.0); Mean Corpuscular Hemoglobin 27.4 pg (27.0-31.0); Mean Corpuscular Volume 82.2 fl (78.0-98.0); Mean Platelet Volume 9.5 fL (7.4-10.4); Platelet Count 244 10x3/uL (130-400); RBC Distribution Width 13.8 % (11.5-14.5); Red Blood Cell (RBC) Count 4.29 mill/uL (4.20-5.40); White Blood Cell (WBC) Count 12.3 10x3/uL (4.8-10.8)
[2022-11-24 15:43] LABS: PTT 23.9 sec (22.9-36.1)
[2022-11-24 15:50] LABS: Prothrombin Time 13.9 sec (12.0-14.7)
[2022-11-24] MEDS ORDERED: Meropenem 1 GM in Sodium Chloride 0.9% 100 ML IVPB SCH (16:00)
[2022-11-24 16:06] LABS: ALT (SGPT) 9 U/L (8-55); AST (SGOT) 14 U/L (5-34); Alkaline Phosphatase 58 U/L (40-110); Anion Gap 14 mmol/L (10-20); BUN (Urea Nitrogen) 24 mg/dL (9.8-20.1); Bilirubin, Total 0.5 mg/dL (0.2-1.2); Calc. Creatinine Clearance 0 mL/min (70-130); Calcium 9.3 mg/dL (7.8-10.44); Carbon Dioxide 26 mmol/L (23-31); Chloride 100 mmol/L (98-107); Estimated GFR 32; Globulin 2.4 g/dL (2.4-3.5); Glucose 160 mg/dL (83-110); Lipase 50 U/L (8-78); Magnesium 2.1 mg/dL (1.6-2.6); Potassium 3.6 mmol/L (3.5-5.1); Protein, Total 6.4 g/dL (5.8-8.1); Sodium 136 mmol/L (136-145)
[2022-11-24] MEDS ORDERED: HYDROmorphone 0.5 MG/0.5 ML SYRINGE ONE (16:17)
[2022-11-24 17:26] LABS: Bilirubin Negative (Negative); Blood, Urine Negative (Negative); Clarity Turbid (Clear); Glucose, Urine (Dipstick) Normal (Negative); Ketone, Urine Negative (Negative); Leukocyte Negative Leu/uL (Negative); Nitrite Negative (Negative); Protein, Urine (Dipstick) 100 mg/dL (Neg-Trace); RBC/HPF 0-3 HPF (0-3); Specific Gravity, Urine 1.044 (1.002-1.036); Squamous Epithelial 0-3 HPF (0-3); pH, Urine 5.5 (5.0-9.0)
[2022-11-24 17:30] LABS: Bacteria/HPF 1+ HPF (None Seen)
[2022-11-24 17:44] LABS: SARS-CoV-2 NAA Rapid Test Not Detected (NotDetected)
[2022-11-24 18:42] LABS: Lactic Acid 1.4 mmol/L (0.5-2.2)
[2022-11-24] MEDS ORDERED: NOREPINEPHRINE 8 MG/250 ML-D5W 250 ML IVPB SCH (18:45)
[2022-11-24] MEDS ORDERED: Acetaminophen 650 MG Suppository PR PRN (18:54)
[2022-11-24] MEDS ORDERED: Ondansetron PF 4 MG/2 ML Vial IVP PRN (18:54)
[2022-11-24] MEDS: Sodium Chloride 0.9% 1,000 ML IV SCH (21:04)
[2022-11-25] MEDS: Sodium Chloride 0.9% 1,000 ML IV SCH ×4 (03:42→21:25)
[2022-11-25 04:26] LABS: Hemoglobin 10.1 g/dL (12.0-16.0); Mean Corpuscular HGB CONC 32.9 g/dL (32.0-36.0); Mean Corpuscular Hemoglobin 27.4 pg (27.0-31.0); Mean Corpuscular Volume 83.1 fl (78.0-98.0); Mean Platelet Volume 9.5 fL (7.4-10.4); Platelet Count 163 10x3/uL (130-400); RBC Distribution Width 13.8 % (11.5-14.5); White Blood Cell (WBC) Count 16.7 10x3/uL (4.8-10.8)
[2022-11-25 04:44] LABS: ALT (SGPT) 7 U/L (8-55); AST (SGOT) 17 U/L (5-34); Albumin 3.3 g/dL (3.4-4.8); Alkaline Phosphatase 48 U/L (40-110); Anion Gap 9 mmol/L (10-20); BUN (Urea Nitrogen) 25 mg/dL (9.8-20.1); Bilirubin, Total 0.4 mg/dL (0.2-1.2); Calc. Creatinine Clearance 39 mL/min (70-130); Carbon Dioxide 25 mmol/L (23-31); Chloride 107 mmol/L (98-107); Estimated GFR 40; Globulin 1.9 g/dL (2.4-3.5); Glucose 141 mg/dL (83-110); Potassium 3.5 mmol/L (3.5-5.1); Protein, Total 5.2 g/dL (5.8-8.1); Sodium 137 mmol/L (136-145)
[2022-11-25 04:54] VITALS: BMI 30.4
[2022-11-25 05:54] LABS: Band 8 % (5-11); Hypochromia SLIGHT = 6-15 cells (100X) (0-5/hpf); Lymphocytes 19 % (21-51); MDiff Complete? YES; Monocytes 4 % (0-10); Neutrophil 69 % (42-75); Platelet Morphology Comment Appears Adequate
[2022-11-25] MEDS: metroNIDAZOLE 500 MG in Premix Bag 1 BAG IVPB SCH ×3 (06:07→21:24)
[2022-11-25] MEDS ORDERED: Vancomycin 1.5 GRAM/300 ML BAG 1.5 GM in Premix Bag 1 BAG IVPB SCH (06:30)
[2022-11-25] MEDS ORDERED: FLU VACC QS2022-23(65YR UP)/PF 240 MCG/0.7 ML SYRINGE IM ONE (09:00)
[2022-11-25] MEDS ORDERED: Vancomycin HCl 1 GM in Sodium Chloride 0.9% 250 ML 250 ML IVPB SCH (09:00)
[2022-11-25] MEDS ORDERED: Meropenem 0.5 GM in Sodium Chloride 0.9% 100 ML IVPB SCH (09:00)
[2022-11-25] MEDS ORDERED: Dicyclomine 20 MG/2 ML VIAL IM PRN ×2 (09:22→13:00)
[2022-11-25] MEDS ORDERED: Dicyclomine 20 MG/2 ML VIAL IM SCH (09:30)
[2022-11-25] MEDS: Lorazepam 2 MG/ML VIAL SLOW IVP SCH ×2 (09:32→21:23)
[2022-11-25] MEDS ORDERED: Polyethylene Glycol 3350 17 GM Packet PO PRN (12:24)
[2022-11-25] MEDS ORDERED: Meropenem 1 GM in Sodium Chloride 0.9% 100 ML IVPB SCH (21:00)
[2022-11-25] MEDS ORDERED: Famotidine/PF 20 mg/2ml Vial SLOW IVP SCH (21:00)
[2022-11-25] MEDS: Polyethylene Glycol 3350 17 GM Packet PO SCH (21:24)
[2022-11-25] MEDS: Acetaminophen 325 MG TAB PO PRN (21:25)
[2022-11-26] MEDS: Sodium Chloride 0.9% 1,000 ML IV SCH ×2 (04:45→11:02)
[2022-11-26 04:54] LABS: #Eosinphils 0.1 thou/uL (0.0-0.7); #Monocytes 0.8 thou/uL (0.11-0.59); #Neutrophils 9.1 thou/uL (1.40-6.50); %Basophils 0.1 % (0.0-1.0); %Eosinophils 0.7 % (0.0-10.0); %Lymphocytes 16.7 % (21.0-51.0); %Monocytes 6.8 % (0.0-10.0); %Neutrophils 75.6 % (42.0-75.0); Hemoglobin 9.2 g/dL (12.0-16.0); Mean Corpuscular HGB CONC 32.5 g/dL (32.0-36.0); Mean Corpuscular Hemoglobin 27.4 pg (27.0-31.0); Mean Corpuscular Volume 84.3 fl (78.0-98.0); Mean Platelet Volume 9.4 fL (7.4-10.4); Platelet Count 138 10x3/uL (130-400); RBC Distribution Width 13.8 % (11.5-14.5); Red Blood Cell (RBC) Count 3.36 mill/uL (4.20-5.40)
[2022-11-26 05:16] LABS: Anion Gap 8 mmol/L (10-20); BUN (Urea Nitrogen) 14 mg/dL (9.8-20.1); Calc. Creatinine Clearance 64 mL/min (70-130); Calcium 7.9 mg/dL (7.8-10.44); Carbon Dioxide 22 mmol/L (23-31); Chloride 111 mmol/L (98-107); Estimated GFR 69; Glucose 99 mg/dL (83-110); Potassium 2.8 mmol/L (3.5-5.1); Sodium 138 mmol/L (136-145)
[2022-11-26] MEDS: metroNIDAZOLE 500 MG in Premix Bag 1 BAG IVPB SCH (06:09)
[2022-11-26] MEDS ORDERED: Vancomycin HCl 750 MG in Sodium Chloride 0.9% 250 ML 250 ML IVPB SCH (08:00)
[2022-11-26] MEDS ORDERED: Potassium Chloride 20 MEQ TAB PO SCH (08:15)
[2022-11-26] MEDS: Ramipril 5 MG CAP PO SCH ×2 (09:34→21:00)
[2022-11-26] MEDS: Docusate 100 MG CAP PO SCH ×2 (09:35→21:00)
[2022-11-26] MEDS: Lorazepam 0.5 MG TAB PO PRN ×2 (09:35→21:03)
[2022-11-26] MEDS: Pregabalin 50 MG CAP PO SCH ×2 (09:36→20:59)
[2022-11-26] MEDS: Polyethylene Glycol 3350 17 GM Packet PO SCH ×2 (09:36→21:04)
[2022-11-26] MEDS: Potassium Chloride 20 MEQ TAB PO SCH ×2 (10:17→16:57)
[2022-11-26] MEDS: Acetaminophen 325 MG TAB PO PRN (10:57)
[2022-11-26] MEDS: Loratadine 10 MG TAB PO PRN (10:58)
[2022-11-26] MEDS ORDERED: Acetaminophen 325 MG TAB PO PRN (13:38)
[2022-11-26] MEDS ORDERED: hydrALAZINE 20 MG/ML VIAL SLOW IVP PRN (13:41)
[2022-11-26] MEDS: Carvedilol 6.25 MG TAB PO SCH (16:56)
[2022-11-26] MEDS: Atorvastatin Calcium 10 MG TAB PO SCH (21:00)
[2022-11-26] MEDS ORDERED: Simvastatin 10 MG TAB PO SCH (21:00)
[2022-11-26] MEDS: Isosorbide Dinitrate 20 MG TAB PO SCH (21:02)
[2022-11-26] MEDS: tiZANidine HCl 4 MG TAB PO SCH (21:07)
[2022-11-27 04:55] LABS: #Eosinphils 0.3 thou/uL (0.0-0.7); #Lymphocytes 1.8 thou/uL (1.20-3.40); #Monocytes 0.6 thou/uL (0.11-0.59); #Neutrophils 6.5 thou/uL (1.40-6.50); %Basophils 0.3 % (0.0-1.0); %Eosinophils 3.1 % (0.0-10.0); %Neutrophils 70.6 % (42.0-75.0); Hemoglobin 9.2 g/dL (12.0-16.0); Mean Corpuscular HGB CONC 32.3 g/dL (32.0-36.0); Mean Corpuscular Hemoglobin 27.3 pg (27.0-31.0); Mean Corpuscular Volume 84.5 fl (78.0-98.0); Mean Platelet Volume 9.5 fL (7.4-10.4); Platelet Count 160 10x3/uL (130-400); RBC Distribution Width 13.7 % (11.5-14.5); Red Blood Cell (RBC) Count 3.37 mill/uL (4.20-5.40); White Blood Cell (WBC) Count 9.2 10x3/uL (4.8-10.8)
[2022-11-27 05:12] LABS: Anion Gap 10 mmol/L (10-20); BUN (Urea Nitrogen) 11 mg/dL (9.8-20.1); Calc. Creatinine Clearance 65 mL/min (70-130); Calcium 8.3 mg/dL (7.8-10.44); Carbon Dioxide 20 mmol/L (23-31); Chloride 111 mmol/L (98-107); Estimated GFR 70; Glucose 93 mg/dL (83-110); Potassium 3.3 mmol/L (3.5-5.1); Sodium 138 mmol/L (136-145)
[2022-11-27] MEDS: hydrALAZINE 20 MG/ML VIAL SLOW IVP PRN (06:10)
[2022-11-27] MEDS: Carvedilol 6.25 MG TAB PO SCH ×2 (09:37→16:08)
[2022-11-27] MEDS: Docusate 100 MG CAP PO SCH ×2 (09:37→20:41)
[2022-11-27] MEDS: Potassium Chloride 20 MEQ TAB PO SCH ×2 (09:37→16:08)
[2022-11-27] MEDS: Pregabalin 50 MG CAP PO SCH ×2 (09:38→20:39)
[2022-11-27] MEDS: Polyethylene Glycol 3350 17 GM Packet PO SCH ×2 (09:38→20:39)
[2022-11-27] MEDS: Isosorbide Dinitrate 20 MG TAB PO SCH ×2 (09:38→20:41)
[2022-11-27] MEDS: Ramipril 5 MG CAP PO SCH ×2 (09:39→20:39)
[2022-11-27] MEDS: tiZANidine HCl 4 MG TAB PO SCH ×2 (09:39→20:40)
[2022-11-27] MEDS: Loratadine 10 MG TAB PO PRN (09:39)
[2022-11-27] MEDS: Lorazepam 0.5 MG TAB PO PRN ×2 (09:41→20:41)
[2022-11-27] MEDS ORDERED: Ketotifen Fumarate 0.025% Ophth Soln 5 ml Bottle R EYE SCH (12:45)
[2022-11-27] MEDS ORDERED: Ketotifen Fumarate 0.025% Ophth Soln 5 ml Bottle L EYE SCH (12:45)
[2022-11-27] MEDS: Dicyclomine 20 MG TAB PO SCH ×3 (13:04→20:41)
[2022-11-27] MEDS: Ketotifen Fumarate 0.025% Ophth Soln 5 ml Bottle L EYE SCH (20:36)
[2022-11-27] MEDS: Ketotifen Fumarate 0.025% Ophth Soln 5 ml Bottle R EYE SCH (20:37)
[2022-11-27] MEDS: Atorvastatin Calcium 10 MG TAB PO SCH (20:41)
[2022-11-27] MEDS: Azelastine 137 MCG/Spray 30 ML NS SCH (20:54)
[2022-11-28 04:39] LABS: #Eosinphils 0.2 thou/uL (0.0-0.7); #Lymphocytes 1.9 thou/uL (1.20-3.40); #Monocytes 0.5 thou/uL (0.11-0.59); #Neutrophils 3.6 thou/uL (1.40-6.50); %Eosinophils 3.5 % (0.0-10.0); %Lymphocytes 30.9 % (21.0-51.0); %Neutrophils 57.6 % (42.0-75.0); Hemoglobin 9.3 g/dL (12.0-16.0); Mean Corpuscular HGB CONC 32.3 g/dL (32.0-36.0); Mean Corpuscular Hemoglobin 27.2 pg (27.0-31.0); Mean Corpuscular Volume 84.3 fl (78.0-98.0); Mean Platelet Volume 9.1 fL (7.4-10.4); Platelet Count 175 10x3/uL (130-400); RBC Distribution Width 13.8 % (11.5-14.5); White Blood Cell (WBC) Count 6.3 10x3/uL (4.8-10.8)
[2022-11-28 04:54] LABS: Anion Gap 11 mmol/L (10-20); BUN (Urea Nitrogen) 13 mg/dL (9.8-20.1); Calc. Creatinine Clearance 64 mL/min (70-130); Calcium 8.4 mg/dL (7.8-10.44); Carbon Dioxide 21 mmol/L (23-31); Chloride 111 mmol/L (98-107); Estimated GFR 69; Glucose 115 mg/dL (83-110); Potassium 3.5 mmol/L (3.5-5.1); Sodium 139 mmol/L (136-145)
[2022-11-28] MEDS: Ramipril 5 MG CAP PO SCH ×2 (09:23→20:23)
[2022-11-28] MEDS: Lorazepam 0.5 MG TAB PO PRN ×2 (09:23→20:22)
[2022-11-28] MEDS: Polyethylene Glycol 3350 17 GM Packet PO SCH ×2 (09:23→20:28)
[2022-11-28] MEDS: Docusate 100 MG CAP PO SCH ×3 (09:23→20:22)
[2022-11-28] MEDS: Potassium Chloride 20 MEQ TAB PO SCH ×2 (09:24→17:25)
[2022-11-28] MEDS: Dicyclomine 20 MG TAB PO SCH ×4 (09:24→20:22)
[2022-11-28] MEDS: Carvedilol 6.25 MG TAB PO SCH ×2 (09:24→17:25)
[2022-11-28] MEDS: tiZANidine HCl 4 MG TAB PO SCH ×2 (09:24→20:22)
[2022-11-28] MEDS: Loratadine 10 MG TAB PO SCH (09:24)
[2022-11-28] MEDS: Isosorbide Dinitrate 20 MG TAB PO SCH ×2 (09:25→20:23)
[2022-11-28] MEDS: Pregabalin 50 MG CAP PO SCH ×2 (09:25→20:21)
[2022-11-28] MEDS: Acetaminophen 325 MG TAB PO PRN (09:25)
[2022-11-28] MEDS: Azelastine 137 MCG/Spray 30 ML NS SCH ×2 (09:26→20:29)
[2022-11-28] MEDS: hydrALAZINE 20 MG/ML VIAL SLOW IVP PRN (09:26)
[2022-11-28] MEDS: Ketotifen Fumarate 0.025% Ophth Soln 5 ml Bottle L EYE SCH ×2 (09:27→20:19)
[2022-11-28] MEDS: Ketotifen Fumarate 0.025% Ophth Soln 5 ml Bottle R EYE SCH ×3 (09:27→20:20)
[2022-11-28] MEDS ORDERED: Iopamidol-370 76% 500 ML 1 ML ONE (11:21)
[2022-11-28 12:09] LABS: #Eosinphils 0.2 thou/uL (0.0-0.7); #Lymphocytes 1.6 thou/uL (1.20-3.40); #Monocytes 0.5 thou/uL (0.11-0.59); #Neutrophils 3.9 thou/uL (1.40-6.50); %Basophils 0.4 % (0.0-1.0); %Eosinophils 2.7 % (0.0-10.0); %Lymphocytes 26.1 % (21.0-51.0); %Monocytes 7.7 % (0.0-10.0); %Neutrophils 63.2 % (42.0-75.0); Hemoglobin 9.6 g/dL (12.0-16.0); Mean Corpuscular HGB CONC 32.6 g/dL (32.0-36.0); Mean Corpuscular Hemoglobin 27.4 pg (27.0-31.0); Mean Corpuscular Volume 83.8 fl (78.0-98.0); Mean Platelet Volume 8.9 fL (7.4-10.4); Platelet Count 183 10x3/uL (130-400); RBC Distribution Width 13.6 % (11.5-14.5); Red Blood Cell (RBC) Count 3.49 mill/uL (4.20-5.40); White Blood Cell (WBC) Count 6.2 10x3/uL (4.8-10.8)
[2022-11-28] MEDS: Atorvastatin Calcium 10 MG TAB PO SCH (20:23)
[2022-11-29] MEDS: hydrALAZINE 20 MG/ML VIAL SLOW IVP PRN (04:04)
[2022-11-29 07:55] LABS: Anion Gap 11 mmol/L (10-20); BUN (Urea Nitrogen) 16 mg/dL (9.8-20.1); Calc. Creatinine Clearance 55 mL/min (70-130); Calcium 8.4 mg/dL (7.8-10.44); Carbon Dioxide 23 mmol/L (23-31); Chloride 110 mmol/L (98-107); Estimated GFR 64; Glucose 95 mg/dL (83-110); Potassium 3.9 mmol/L (3.5-5.1); Sodium 140 mmol/L (136-145)
[2022-11-29] MEDS: Ramipril 5 MG CAP PO SCH ×2 (09:58→20:42)
[2022-11-29] MEDS: Pregabalin 50 MG CAP PO SCH ×2 (09:59→20:44)
[2022-11-29] MEDS: Potassium Chloride 20 MEQ TAB PO SCH ×2 (09:59→17:12)
[2022-11-29] MEDS: sulfaSALAzine 500 MG TAB PO SCH ×4 (09:59→20:43)
[2022-11-29] MEDS: Sulfameth/Trimethoprim DS 800-160mg TAB PO SCH ×2 (10:00→20:44)
[2022-11-29] MEDS: Loratadine 10 MG TAB PO SCH (10:00)
[2022-11-29] MEDS: Dicyclomine 20 MG TAB PO SCH ×4 (10:00→20:42)
[2022-11-29] MEDS: Lorazepam 0.5 MG TAB PO PRN ×2 (10:00→20:42)
[2022-11-29] MEDS: tiZANidine HCl 4 MG TAB PO SCH ×2 (10:00→20:43)
[2022-11-29] MEDS: Isosorbide Dinitrate 20 MG TAB PO SCH ×2 (10:00→20:42)
[2022-11-29] MEDS: Carvedilol 6.25 MG TAB PO SCH ×2 (10:00→17:13)
[2022-11-29] MEDS: Ketotifen Fumarate 0.025% Ophth Soln 5 ml Bottle L EYE SCH ×2 (10:01→21:32)
[2022-11-29] MEDS: Polyethylene Glycol 3350 17 GM Packet PO SCH ×2 (10:01→20:43)
[2022-11-29] MEDS: Ketotifen Fumarate 0.025% Ophth Soln 5 ml Bottle R EYE SCH ×2 (10:01→21:33)
[2022-11-29] MEDS: cloNIDine 0.2mg/24 Hour PATCH TD SCH (10:02)
[2022-11-29] MEDS: Azelastine 137 MCG/Spray 30 ML NS SCH ×2 (10:02→21:33)
[2022-11-29] MEDS: Docusate 100 MG CAP PO SCH ×2 (10:02→20:44)
[2022-11-29] MEDS: Atorvastatin Calcium 10 MG TAB PO SCH (20:44)
[2022-11-30] MEDS: Dicyclomine 20 MG TAB PO SCH ×4 (09:16→22:35)
[2022-11-30] MEDS: Ramipril 5 MG CAP PO SCH ×2 (09:16→22:36)
[2022-11-30] MEDS: Sulfameth/Trimethoprim DS 800-160mg TAB PO SCH ×2 (09:17→22:37)
[2022-11-30] MEDS: sulfaSALAzine 500 MG TAB PO SCH ×4 (09:17→22:37)
[2022-11-30] MEDS: Carvedilol 6.25 MG TAB PO SCH ×2 (09:18→16:52)
[2022-11-30] MEDS: tiZANidine HCl 4 MG TAB PO SCH ×2 (09:18→22:37)
[2022-11-30] MEDS: Loratadine 10 MG TAB PO SCH (09:19)
[2022-11-30] MEDS: Isosorbide Dinitrate 20 MG TAB PO SCH ×2 (09:19→22:36)
[2022-11-30] MEDS: Docusate 100 MG CAP PO SCH ×2 (09:19→22:35)
[2022-11-30] MEDS: Ketotifen Fumarate 0.025% Ophth Soln 5 ml Bottle L EYE SCH ×2 (09:20→22:51)
[2022-11-30] MEDS: Potassium Chloride 20 MEQ TAB PO SCH ×2 (09:20→16:52)
[2022-11-30] MEDS: Ketotifen Fumarate 0.025% Ophth Soln 5 ml Bottle R EYE SCH ×2 (09:20→22:52)
[2022-11-30] MEDS: Polyethylene Glycol 3350 17 GM Packet PO SCH ×2 (09:21→22:35)
[2022-11-30] MEDS: Pregabalin 50 MG CAP PO SCH ×2 (09:28→22:36)
[2022-11-30] MEDS: Azelastine 137 MCG/Spray 30 ML NS SCH ×2 (09:30→20:50)
[2022-11-30] MEDS: Lorazepam 0.5 MG TAB PO PRN (22:34)
[2022-11-30] MEDS: Atorvastatin Calcium 10 MG TAB PO SCH (22:35)
[2022-12-01] MEDS ORDERED: Ondansetron ODT 8 MG TAB PO PRN (09:00)
[2022-12-01] MEDS: Potassium Chloride 20 MEQ TAB PO SCH ×2 (09:28→17:20)
[2022-12-01] MEDS: Ramipril 5 MG CAP PO SCH ×2 (09:28→21:20)
[2022-12-01] MEDS: Dicyclomine 20 MG TAB PO SCH ×4 (09:28→21:17)
[2022-12-01] MEDS: Pregabalin 50 MG CAP PO SCH ×2 (09:29→21:19)
[2022-12-01] MEDS: tiZANidine HCl 4 MG TAB PO SCH ×2 (09:30→21:22)
[2022-12-01] MEDS: Docusate 100 MG CAP PO SCH ×2 (09:30→21:17)
[2022-12-01] MEDS: Carvedilol 6.25 MG TAB PO SCH ×2 (09:30→17:24)
[2022-12-01] MEDS: Isosorbide Dinitrate 20 MG TAB PO SCH ×2 (09:31→21:18)
[2022-12-01] MEDS: Loratadine 10 MG TAB PO SCH (09:31)
[2022-12-01] MEDS: sulfaSALAzine 500 MG TAB PO SCH ×4 (09:31→21:27)
[2022-12-01] MEDS: Ketotifen Fumarate 0.025% Ophth Soln 5 ml Bottle L EYE SCH ×2 (09:32→21:18)
[2022-12-01] MEDS: Ketotifen Fumarate 0.025% Ophth Soln 5 ml Bottle R EYE SCH ×2 (09:32→21:18)
[2022-12-01] MEDS: Azelastine 137 MCG/Spray 30 ML NS SCH ×2 (09:32→21:19)
[2022-12-01] MEDS: Polyethylene Glycol 3350 17 GM Packet PO SCH ×2 (09:33→21:19)
[2022-12-01] MEDS: Sulfameth/Trimethoprim DS 800-160mg TAB PO SCH ×2 (09:33→21:20)
[2022-12-01] MEDS: Lorazepam 0.5 MG TAB PO PRN ×3 (09:37→21:25)
[2022-12-01] MEDS: Acetaminophen 325 MG TAB PO SCH ×4 (13:08→21:20)
[2022-12-01] MEDS ORDERED: Cosyntropin 250 MCG VIAL SLOW IVP SCH (13:15)
[2022-12-01] MEDS: Atorvastatin Calcium 10 MG TAB PO SCH (21:16)
[2022-12-02 04:52] LABS: #Eosinphils 0.2 thou/uL (0.0-0.7); #Lymphocytes 1.8 thou/uL (1.20-3.40); #Monocytes 0.4 thou/uL (0.11-0.59); #Neutrophils 2.3 thou/uL (1.40-6.50); %Basophils 0.3 % (0.0-1.0); %Eosinophils 3.4 % (0.0-10.0); %Lymphocytes 39.2 % (21.0-51.0); %Monocytes 8.5 % (0.0-10.0); %Neutrophils 48.6 % (42.0-75.0); Hemoglobin 9.1 g/dL (12.0-16.0); Mean Corpuscular Hemoglobin 27.8 pg (27.0-31.0); Mean Corpuscular Volume 84.3 fl (78.0-98.0); Mean Platelet Volume 9.1 fL (7.4-10.4); Platelet Count 202 10x3/uL (130-400); Red Blood Cell (RBC) Count 3.28 mill/uL (4.20-5.40); White Blood Cell (WBC) Count 4.6 10x3/uL (4.8-10.8)
[2022-12-02 05:20] LABS: Anion Gap 8 mmol/L (10-20); BUN (Urea Nitrogen) 15 mg/dL (9.8-20.1); Calc. Creatinine Clearance 32 mL/min (70-130); Calcium 7.9 mg/dL (7.8-10.44); Carbon Dioxide 17 mmol/L (23-31); Chloride 109 mmol/L (98-107); Estimated GFR 33; Glucose 109 mg/dL (83-110); Potassium 4.9 mmol/L (3.5-5.1); Sodium 129 mmol/L (136-145)
[2022-12-02] MEDS: Acetaminophen 325 MG TAB PO SCH ×5 (05:43→22:02)
[2022-12-02 09:02] LABS: #Eosinphils 0.2 thou/uL (0.0-0.7); #Lymphocytes 1.5 thou/uL (1.20-3.40); #Monocytes 0.5 thou/uL (0.11-0.59); #Neutrophils 2.2 thou/uL (1.40-6.50); %Basophils 0.1 % (0.0-1.0); %Eosinophils 3.7 % (0.0-10.0); %Lymphocytes 35.3 % (21.0-51.0); %Monocytes 10.5 % (0.0-10.0); %Neutrophils 50.3 % (42.0-75.0); Hemoglobin 9.9 g/dL (12.0-16.0); Mean Corpuscular HGB CONC 32.8 g/dL (32.0-36.0); Mean Corpuscular Hemoglobin 27.7 pg (27.0-31.0); Mean Corpuscular Volume 84.6 fl (78.0-98.0); Mean Platelet Volume 8.8 fL (7.4-10.4); Platelet Count 210 10x3/uL (130-400); RBC Distribution Width 13.9 % (11.5-14.5); Red Blood Cell (RBC) Count 3.58 mill/uL (4.20-5.40); White Blood Cell (WBC) Count 4.3 10x3/uL (4.8-10.8)
[2022-12-02] MEDS: Ketotifen Fumarate 0.025% Ophth Soln 5 ml Bottle L EYE SCH ×2 (10:45→21:37)
[2022-12-02] MEDS: Azelastine 137 MCG/Spray 30 ML NS SCH ×2 (10:46→21:38)
[2022-12-02] MEDS: Ketotifen Fumarate 0.025% Ophth Soln 5 ml Bottle R EYE SCH ×2 (10:46→21:38)
[2022-12-02] MEDS: Polyethylene Glycol 3350 17 GM Packet PO SCH ×2 (10:47→21:41)
[2022-12-02] MEDS: Carvedilol 6.25 MG TAB PO SCH ×2 (10:48→17:01)
[2022-12-02] MEDS: Pregabalin 50 MG CAP PO SCH ×2 (10:49→21:41)
[2022-12-02] MEDS: sulfaSALAzine 500 MG TAB PO SCH ×4 (10:50→21:42)
[2022-12-02] MEDS: Dicyclomine 20 MG TAB PO SCH ×4 (10:50→21:41)
[2022-12-02] MEDS: Loratadine 10 MG TAB PO SCH ×2 (10:52→14:57)
[2022-12-02] MEDS: tiZANidine HCl 4 MG TAB PO SCH ×2 (10:55→21:42)
[2022-12-02] MEDS: Isosorbide Dinitrate 20 MG TAB PO SCH ×2 (10:55→21:41)
[2022-12-02] MEDS: Potassium Chloride 20 MEQ TAB PO SCH ×2 (10:56→17:02)
[2022-12-02] MEDS: Docusate 100 MG CAP PO SCH ×2 (10:57→21:41)
[2022-12-02] MEDS: Lorazepam 0.5 MG TAB PO PRN ×3 (11:04→23:18)
[2022-12-02] MEDS: cloNIDine 0.1 MG TAB PO PRN (15:41)
[2022-12-02] MEDS: Atorvastatin Calcium 10 MG TAB PO SCH (21:41)
[2022-12-03] MEDS: Lorazepam 0.5 MG TAB PO PRN ×4 (04:01→21:36)
[2022-12-03] MEDS: Acetaminophen 325 MG TAB PO SCH ×5 (04:02→22:29)
[2022-12-03 04:17] LABS: Anion Gap 11 mmol/L (10-20); BUN (Urea Nitrogen) 15 mg/dL (9.8-20.1); Calc. Creatinine Clearance 36 mL/min (70-130); Calcium 8.8 mg/dL (7.8-10.44); Carbon Dioxide 17 mmol/L (23-31); Chloride 110 mmol/L (98-107); Estimated GFR 38; Glucose 106 mg/dL (83-110); Potassium 5.5 mmol/L (3.5-5.1); Sodium 132 mmol/L (136-145)
[2022-12-03] MEDS ORDERED: Carvedilol 6.25 MG TAB PO SCH (07:30)
[2022-12-03] MEDS: Potassium Chloride 20 MEQ TAB PO SCH ×2 (08:18→16:46)
[2022-12-03] MEDS: NIFEdipine XL 30 MG TAB PO SCH (08:19)
[2022-12-03] MEDS: Isosorbide Dinitrate 20 MG TAB PO SCH ×2 (08:20→21:33)
[2022-12-03] MEDS: Pregabalin 50 MG CAP PO SCH ×2 (08:21→21:34)
[2022-12-03] MEDS: Dicyclomine 20 MG TAB PO SCH ×4 (08:22→21:33)
[2022-12-03] MEDS: Carvedilol 25 MG TAB PO SCH ×2 (08:23→16:46)
[2022-12-03] MEDS: tiZANidine HCl 4 MG TAB PO SCH ×2 (08:23→21:36)
[2022-12-03] MEDS: sulfaSALAzine 500 MG TAB PO SCH ×4 (08:26→21:33)
[2022-12-03] MEDS: Ketotifen Fumarate 0.025% Ophth Soln 5 ml Bottle L EYE SCH ×2 (08:27→21:39)
[2022-12-03] MEDS: Ketotifen Fumarate 0.025% Ophth Soln 5 ml Bottle R EYE SCH ×2 (08:27→21:39)
[2022-12-03] MEDS: Azelastine 137 MCG/Spray 30 ML NS SCH ×2 (08:27→21:39)
[2022-12-03] MEDS: Polyethylene Glycol 3350 17 GM Packet PO SCH ×2 (08:28→21:37)
[2022-12-03] MEDS: Docusate 100 MG CAP PO SCH ×2 (08:28→21:36)
[2022-12-03 08:33] LABS: #Eosinphils 0.1 thou/uL (0.0-0.7); #Monocytes 0.4 thou/uL (0.11-0.59); #Neutrophils 2.1 thou/uL (1.40-6.50); %Basophils 0.4 % (0.0-1.0); %Eosinophils 1.6 % (0.0-10.0); %Lymphocytes 43.4 % (21.0-51.0); %Monocytes 8.5 % (0.0-10.0); %Neutrophils 46.1 % (42.0-75.0); Hemoglobin 9.7 g/dL (12.0-16.0); Mean Corpuscular HGB CONC 32.8 g/dL (32.0-36.0); Mean Corpuscular Hemoglobin 28.3 pg (27.0-31.0); Mean Corpuscular Volume 86.3 fl (78.0-98.0); Mean Platelet Volume 9.7 fL (7.4-10.4); Platelet Count 216 10x3/uL (130-400); RBC Distribution Width 14.1 % (11.5-14.5); White Blood Cell (WBC) Count 4.6 10x3/uL (4.8-10.8)
[2022-12-03] MEDS: busPIRone HCl 10 MG TAB PO SCH ×3 (10:35→20:23)
[2022-12-03] MEDS: Atorvastatin Calcium 10 MG TAB PO SCH (21:36)
[2022-12-04] MEDS: cloNIDine 0.1 MG TAB PO PRN (01:35)
[2022-12-04] MEDS: Acetaminophen 325 MG TAB PO PRN (02:35)
[2022-12-04 04:50] LABS: Anion Gap 12 mmol/L (10-20); BUN (Urea Nitrogen) 12 mg/dL (9.8-20.1); Calc. Creatinine Clearance 42 mL/min (70-130); Calcium 8.9 mg/dL (7.8-10.44); Carbon Dioxide 19 mmol/L (23-31); Chloride 107 mmol/L (98-107); Estimated GFR 46; Glucose 96 mg/dL (83-110); Potassium 5.7 mmol/L (3.5-5.1); Sodium 132 mmol/L (136-145)
[2022-12-04] MEDS: Acetaminophen 325 MG TAB PO SCH ×5 (06:11→21:51)
[2022-12-04] MEDS: Dicyclomine 20 MG TAB PO SCH ×4 (10:01→20:42)
[2022-12-04] MEDS: Carvedilol 25 MG TAB PO SCH ×2 (10:01→17:51)
[2022-12-04] MEDS: busPIRone HCl 10 MG TAB PO SCH ×3 (10:01→19:52)
[2022-12-04] MEDS: Isosorbide Dinitrate 20 MG TAB PO SCH ×2 (10:03→20:44)
[2022-12-04] MEDS: Docusate 100 MG CAP PO SCH ×2 (10:03→20:44)
[2022-12-04] MEDS: NIFEdipine XL 30 MG TAB PO SCH (10:04)
[2022-12-04] MEDS: Pregabalin 50 MG CAP PO SCH ×2 (10:05→20:41)
[2022-12-04] MEDS: tiZANidine HCl 4 MG TAB PO SCH ×2 (10:06→20:46)
[2022-12-04] MEDS: sulfaSALAzine 500 MG TAB PO SCH ×4 (10:07→20:43)
[2022-12-04] MEDS: Azelastine 137 MCG/Spray 30 ML NS SCH ×2 (10:09→20:41)
[2022-12-04] MEDS: Ketotifen Fumarate 0.025% Ophth Soln 5 ml Bottle L EYE SCH ×2 (10:10→20:40)
[2022-12-04] MEDS: Ketotifen Fumarate 0.025% Ophth Soln 5 ml Bottle R EYE SCH ×2 (10:10→20:45)
[2022-12-04] MEDS: Polyethylene Glycol 3350 17 GM Packet PO SCH ×2 (10:13→20:44)
[2022-12-04] MEDS: Lorazepam 0.5 MG TAB PO PRN ×2 (10:18→20:50)
[2022-12-04] MEDS: Loratadine 10 MG TAB PO SCH (15:03)
[2022-12-04] MEDS: Atorvastatin Calcium 10 MG TAB PO SCH (20:41)
[2022-12-05] MEDS: Acetaminophen 325 MG TAB PO PRN (02:57)
[2022-12-05 05:00] LABS: #Eosinphils 0.1 thou/uL (0.0-0.7); #Lymphocytes 1.9 thou/uL (1.20-3.40); #Monocytes 0.4 thou/uL (0.11-0.59); #Neutrophils 1.4 thou/uL (1.40-6.50); %Basophils 0.5 % (0.0-1.0); %Eosinophils 2.6 % (0.0-10.0); %Lymphocytes 49.6 % (21.0-51.0); %Monocytes 11.1 % (0.0-10.0); %Neutrophils 36.2 % (42.0-75.0); Hemoglobin 9.7 g/dL (12.0-16.0); Mean Corpuscular HGB CONC 33.7 g/dL (32.0-36.0); Mean Corpuscular Hemoglobin 28.7 pg (27.0-31.0); Mean Corpuscular Volume 85.1 fl (78.0-98.0); Mean Platelet Volume 8.6 fL (7.4-10.4); Platelet Count 225 10x3/uL (130-400); RBC Distribution Width 13.9 % (11.5-14.5); Red Blood Cell (RBC) Count 3.39 mill/uL (4.20-5.40); White Blood Cell (WBC) Count 3.7 10x3/uL (4.8-10.8)
[2022-12-05 05:16] LABS: Anion Gap 13 mmol/L (10-20); BUN (Urea Nitrogen) 14 mg/dL (9.8-20.1); Calc. Creatinine Clearance 39 mL/min (70-130); Calcium 8.4 mg/dL (7.8-10.44); Carbon Dioxide 18 mmol/L (23-31); Chloride 107 mmol/L (98-107); Estimated GFR 43; Glucose 103 mg/dL (83-110); Potassium 4.7 mmol/L (3.5-5.1); Sodium 133 mmol/L (136-145)
[2022-12-05] MEDS: Acetaminophen 325 MG TAB PO SCH ×5 (06:42→23:41)
[2022-12-05] MEDS: busPIRone HCl 10 MG TAB PO SCH ×3 (09:29→20:57)
[2022-12-05] MEDS: Polyethylene Glycol 3350 17 GM Packet PO SCH ×2 (09:31→20:29)
[2022-12-05] MEDS: Azelastine 137 MCG/Spray 30 ML NS SCH ×2 (09:34→20:30)
[2022-12-05] MEDS: Dicyclomine 20 MG TAB PO SCH ×4 (09:34→20:18)
[2022-12-05] MEDS: Carvedilol 25 MG TAB PO SCH ×2 (09:34→18:40)
[2022-12-05] MEDS: Docusate 100 MG CAP PO SCH ×2 (09:35→20:20)
[2022-12-05] MEDS: Ketotifen Fumarate 0.025% Ophth Soln 5 ml Bottle L EYE SCH ×2 (09:36→20:27)
[2022-12-05] MEDS: Isosorbide Dinitrate 20 MG TAB PO SCH ×2 (09:36→20:19)
[2022-12-05] MEDS: NIFEdipine XL 30 MG TAB PO SCH ×2 (09:37→20:19)
[2022-12-05] MEDS: Ketotifen Fumarate 0.025% Ophth Soln 5 ml Bottle R EYE SCH ×2 (09:37→20:27)
[2022-12-05] MEDS: Pregabalin 50 MG CAP PO SCH ×2 (09:38→20:19)
[2022-12-05] MEDS: Lorazepam 0.5 MG TAB PO PRN ×2 (09:39→20:19)
[2022-12-05] MEDS: tiZANidine HCl 4 MG TAB PO SCH ×2 (09:39→20:19)
[2022-12-05] MEDS: sulfaSALAzine 500 MG TAB PO SCH ×4 (09:39→20:18)
[2022-12-05] MEDS: Atorvastatin Calcium 10 MG TAB PO SCH (20:21)
[2022-12-06 04:31] LABS: #Eosinphils 0.1 thou/uL (0.0-0.7); #Lymphocytes 1.9 thou/uL (1.20-3.40); #Monocytes 0.5 thou/uL (0.11-0.59); #Neutrophils 1.5 thou/uL (1.40-6.50); %Basophils 0.4 % (0.0-1.0); %Eosinophils 2.5 % (0.0-10.0); %Lymphocytes 47.6 % (21.0-51.0); %Monocytes 11.7 % (0.0-10.0); %Neutrophils 37.8 % (42.0-75.0); Hemoglobin 9.5 g/dL (12.0-16.0); Mean Corpuscular HGB CONC 32.5 g/dL (32.0-36.0); Mean Corpuscular Hemoglobin 27.4 pg (27.0-31.0); Mean Corpuscular Volume 84.4 fl (78.0-98.0); Mean Platelet Volume 8.8 fL (7.4-10.4); Platelet Count 226 10x3/uL (130-400); RBC Distribution Width 14.1 % (11.5-14.5); Red Blood Cell (RBC) Count 3.46 mill/uL (4.20-5.40)
[2022-12-06 04:50] LABS: Anion Gap 10 mmol/L (10-20); BUN (Urea Nitrogen) 14 mg/dL (9.8-20.1); Calc. Creatinine Clearance 44 mL/min (70-130); Calcium 8.4 mg/dL (7.8-10.44); Carbon Dioxide 21 mmol/L (23-31); Chloride 109 mmol/L (98-107); Estimated GFR 49; Glucose 111 mg/dL (83-110); Potassium 4.2 mmol/L (3.5-5.1); Sodium 136 mmol/L (136-145)
[2022-12-06] MEDS: Acetaminophen 325 MG TAB PO SCH ×5 (05:35→21:17)
[2022-12-06] MEDS ORDERED: Amitriptyline HCl 25 MG TAB PO PRN (08:23)
[2022-12-06] MEDS: Ketotifen Fumarate 0.025% Ophth Soln 5 ml Bottle L EYE SCH ×2 (09:28→21:19)
[2022-12-06] MEDS: Ketotifen Fumarate 0.025% Ophth Soln 5 ml Bottle R EYE SCH ×2 (09:28→21:19)
[2022-12-06] MEDS: Pregabalin 50 MG CAP PO SCH ×2 (09:29→20:16)
[2022-12-06] MEDS: Azelastine 137 MCG/Spray 30 ML NS SCH ×2 (09:29→21:19)
[2022-12-06] MEDS: NIFEdipine XL 30 MG TAB PO SCH ×2 (09:30→20:16)
[2022-12-06] MEDS: Lorazepam 0.5 MG TAB PO PRN ×2 (09:30→16:42)
[2022-12-06] MEDS: sulfaSALAzine 500 MG TAB PO SCH ×4 (09:30→20:20)
[2022-12-06] MEDS: tiZANidine HCl 4 MG TAB PO SCH ×2 (09:30→20:16)
[2022-12-06] MEDS: Docusate 100 MG CAP PO SCH ×2 (09:31→20:16)
[2022-12-06] MEDS: DULoxetine 30 MG CAP PO SCH (09:32)
[2022-12-06] MEDS: busPIRone HCl 10 MG TAB PO SCH ×3 (09:32→21:19)
[2022-12-06] MEDS: Carvedilol 25 MG TAB PO SCH ×2 (09:32→16:42)
[2022-12-06] MEDS: Isosorbide Dinitrate 20 MG TAB PO SCH ×2 (09:32→20:16)
[2022-12-06] MEDS: cloNIDine 0.2mg/24 Hour PATCH TD SCH (10:12)
[2022-12-06] MEDS: Polyethylene Glycol 3350 17 GM Packet PO SCH ×2 (10:13→21:20)
[2022-12-06] MEDS: Loratadine 10 MG TAB PO SCH (13:29)
[2022-12-06] MEDS: Atorvastatin Calcium 10 MG TAB PO SCH (20:16)
[2022-12-07] MEDS: Acetaminophen 325 MG TAB PO SCH ×4 (05:23→23:44)
[2022-12-07] MEDS: Ketotifen Fumarate 0.025% Ophth Soln 5 ml Bottle R EYE SCH ×2 (08:40→20:24)
[2022-12-07] MEDS: Ketotifen Fumarate 0.025% Ophth Soln 5 ml Bottle L EYE SCH ×2 (08:40→20:24)
[2022-12-07] MEDS: NIFEdipine XL 30 MG TAB PO SCH ×2 (08:41→20:26)
[2022-12-07] MEDS: sulfaSALAzine 500 MG TAB PO SCH ×4 (08:41→20:27)
[2022-12-07] MEDS: Carvedilol 25 MG TAB PO SCH ×2 (08:42→18:08)
[2022-12-07] MEDS: Pregabalin 50 MG CAP PO SCH ×2 (08:42→20:25)
[2022-12-07] MEDS: Docusate 100 MG CAP PO SCH ×2 (08:42→20:24)
[2022-12-07] MEDS: Polyethylene Glycol 3350 17 GM Packet PO SCH ×2 (08:43→23:44)
[2022-12-07] MEDS: Lorazepam 0.5 MG TAB PO PRN ×2 (08:43→20:33)
[2022-12-07] MEDS: DULoxetine 30 MG CAP PO SCH (08:43)
[2022-12-07] MEDS: Isosorbide Dinitrate 20 MG TAB PO SCH ×2 (08:43→20:26)
[2022-12-07] MEDS: tiZANidine HCl 4 MG TAB PO SCH ×2 (08:43→20:27)
[2022-12-07] MEDS: Azelastine 137 MCG/Spray 30 ML NS SCH ×2 (08:44→20:24)
[2022-12-07] MEDS: busPIRone HCl 10 MG TAB PO SCH ×4 (08:44→20:26)
[2022-12-07] MEDS: Atorvastatin Calcium 10 MG TAB PO SCH (20:27)
[2022-12-08] MEDS: Acetaminophen 325 MG TAB PO SCH ×5 (05:35→20:41)
[2022-12-08] MEDS: Lorazepam 0.5 MG TAB PO PRN ×3 (05:36→20:36)
[2022-12-08] MEDS: Ketotifen Fumarate 0.025% Ophth Soln 5 ml Bottle L EYE SCH ×2 (05:43→20:42)
[2022-12-08] MEDS: Ketotifen Fumarate 0.025% Ophth Soln 5 ml Bottle R EYE SCH ×2 (05:43→20:42)
[2022-12-08] MEDS: Docusate 100 MG CAP PO SCH ×2 (10:41→20:36)
[2022-12-08] MEDS: Azelastine 137 MCG/Spray 30 ML NS SCH ×2 (10:41→20:42)
[2022-12-08] MEDS: Carvedilol 25 MG TAB PO SCH ×2 (10:41→16:33)
[2022-12-08] MEDS: Isosorbide Dinitrate 20 MG TAB PO SCH ×2 (10:41→20:38)
[2022-12-08] MEDS: Pregabalin 50 MG CAP PO SCH ×2 (10:42→20:39)
[2022-12-08] MEDS: NIFEdipine XL 30 MG TAB PO SCH ×2 (10:43→20:37)
[2022-12-08] MEDS: Polyethylene Glycol 3350 17 GM Packet PO SCH ×2 (10:43→20:51)
[2022-12-08] MEDS: tiZANidine HCl 4 MG TAB PO SCH ×2 (10:44→20:43)
[2022-12-08] MEDS: sulfaSALAzine 500 MG TAB PO SCH ×4 (10:44→20:41)
[2022-12-08] MEDS: Loratadine 10 MG TAB PO SCH (16:34)
[2022-12-08] MEDS: Mirtazapine 15 MG TAB PO SCH (20:38)
[2022-12-08] MEDS: Atorvastatin Calcium 10 MG TAB PO SCH (20:39)
[2022-12-09] MEDS: Acetaminophen 325 MG TAB PO SCH ×4 (07:21→18:48)
[2022-12-09] MEDS: Azelastine 137 MCG/Spray 30 ML NS SCH ×2 (09:10→20:07)
[2022-12-09] MEDS: Ketotifen Fumarate 0.025% Ophth Soln 5 ml Bottle L EYE SCH ×2 (09:11→20:07)
[2022-12-09] MEDS: Ketotifen Fumarate 0.025% Ophth Soln 5 ml Bottle R EYE SCH ×2 (09:11→20:07)
[2022-12-09] MEDS: DULoxetine 30 MG CAP PO SCH (09:12)
[2022-12-09] MEDS: Carvedilol 25 MG TAB PO SCH ×2 (09:12→18:49)
[2022-12-09] MEDS: Docusate 100 MG CAP PO SCH ×2 (09:12→20:07)
[2022-12-09] MEDS: NIFEdipine XL 30 MG TAB PO SCH ×2 (09:13→20:06)
[2022-12-09] MEDS: Isosorbide Dinitrate 20 MG TAB PO SCH ×2 (09:13→20:06)
[2022-12-09] MEDS: Pregabalin 50 MG CAP PO SCH ×2 (09:14→20:05)
[2022-12-09] MEDS: Polyethylene Glycol 3350 17 GM Packet PO SCH ×2 (09:14→20:08)
[2022-12-09] MEDS: sulfaSALAzine 500 MG TAB PO SCH ×4 (09:15→20:09)
[2022-12-09] MEDS: tiZANidine HCl 4 MG TAB PO SCH ×2 (09:15→20:08)
[2022-12-09] MEDS: Lorazepam 0.5 MG TAB PO PRN (09:16)
[2022-12-09] MEDS: Atorvastatin Calcium 10 MG TAB PO SCH (20:06)
[2022-12-09] MEDS: Mirtazapine 15 MG TAB PO SCH (20:07)
[2022-12-09] MEDS: cloNIDine 0.1 MG TAB PO PRN (20:09)
[2022-12-09 20:10] VITALS: BP 179/72
[2022-12-09 20:19] VITALS: TEMP 97.6
== END 2022-12-09 20:16 | disposition home health service (06) | DRG 871 ==
LOC: ERS 15:00 → CCU 18:11 → 2NO 11-26 15:47
PROVIDERS: ADMIT Specialist; ATTEND Specialist
PROC: 3E03329 Introduction of Other Anti-infective into Peripheral Vein, Percutaneous Approach (ICD-10-PCS; principal; 2022-11-24)
PROC: 3E033XZ Introduction of Vasopressor into Peripheral Vein, Percutaneous Approach (ICD-10-PCS; 2022-11-24)
DX: A41.9 Sepsis, unspecified organism (principal); I50.33 Acute on chronic diastolic (congestive) heart failure; R65.21 Severe sepsis with septic shock; I13.0 Hypertensive heart and chronic kidney disease with heart failure and stage 1 through stage 4 chronic kidney disease, or unspecified chronic kidney disease; I69.951 Hemiplegia and hemiparesis following unspecified cerebrovascular disease affecting right dominant side; N17.9 Acute kidney failure, unspecified; Z20.822 Contact with and (suspected) exposure to COVID-19; K21.9 Gastro-esophageal reflux disease without esophagitis; E78.5 Hyperlipidemia, unspecified; M19.90 Unspecified osteoarthritis, unspecified site; F41.1 Generalized anxiety disorder; E88.09 Other disorders of plasma-protein metabolism, not elsewhere classified; D63.1 Anemia in chronic kidney disease; I25.10 Atherosclerotic heart disease of native coronary artery without angina pectoris; M35.3 Polymyalgia rheumatica; E87.6 Hypokalemia; N18.9 Chronic kidney disease, unspecified; K52.89 Other specified noninfective gastroenteritis and colitis; E66.9 Obesity, unspecified; Z68.26 Body mass index [BMI] 26.0-26.9, adult; Z95.0 Presence of cardiac pacemaker; Z90.49 Acquired absence of other specified parts of digestive tract; Z90.710 Acquired absence of both cervix and uterus; Z88.5 Allergy status to narcotic agent; Z88.1 Allergy status to other antibiotic agents; Z88.0 Allergy status to penicillin; Z88.8 Allergy status to other drugs, medicaments and biological substances
CPT/HCPCS: 36415; 36416; 36556; 51701; 71045; 71275; 74174; 74177; 80048; 80053; 80400; 81003; 81015; 82274; 82533; 83036; 83605; 83690; 83735; 83880; 84443; 84484; 85025; 85610; 85730; 87040; 87086; 87811; 93005; 93306; 96361; 96365; 96375; J0360; J0834; J1170; J1650; J2060; J2185; J3010; J3370; J3490; J7050; Q0162; Q9967; S0028; U0002

== ENCOUNTER 2023-03-08 08:37 | Outpatient (CLI) | payer MEDICARE | END 2023-03-08 08:38 | disposition home or self-care (01) | LOC: CT 08:37 | PROVIDERS: ATTEND Anesthesiology Pain Medicine | DX: M47.22 Other spondylosis with radiculopathy, cervical region (principal); M47.813 Spondylosis without myelopathy or radiculopathy, cervicothoracic region; M48.02 Spinal stenosis, cervical region; M89.9 Disorder of bone, unspecified; M25.78 Osteophyte, vertebrae | CPT/HCPCS: 70260; 72125 ==

== ENCOUNTER 2023-12-21 08:48 | Outpatient (CLI) | payer MEDICARE | END 2023-12-21 08:49 | disposition home or self-care (01) | LOC: RAD 08:48 | PROVIDERS: ATTEND Anesthesiology Pain Medicine | DX: M16.11 Unilateral primary osteoarthritis, right hip (principal) ==

== ENCOUNTER 2024-11-05 09:02 | Outpatient (CLI) | payer MEDICARE | END 2024-11-05 09:03 | disposition home or self-care (01) | LOC: MRI 09:02 | PROVIDERS: ATTEND Nurse Practitioner Family | DX: M48.02 Spinal stenosis, cervical region (principal); R06.00 Dyspnea, unspecified; M47.812 Spondylosis without myelopathy or radiculopathy, cervical region; M47.813 Spondylosis without myelopathy or radiculopathy, cervicothoracic region; M43.22 Fusion of spine, cervical region; M40.202 Unspecified kyphosis, cervical region; Z86.61 Personal history of infections of the central nervous system | CPT/HCPCS: 71046; 72141 ==